=== PATIENT | female | born 1970 | race Caucasian/White ===

== ENCOUNTER → 2020-05-13 12:55 | Outpatient (BNVA) | payer OTHER, SELFPAY | PROVIDERS: Family Provider Family Medicine; PCP Family Medicine; Visit Provider Family Medicine | DX: R07.89 Other chest pain (principal); I10 Essential (primary) hypertension; Z86.39 Personal history of other endocrine, nutritional and metabolic disease; Z68.29 Body mass index [BMI] 29.0-29.9, adult; Z71.89 Other specified counseling | CPT/HCPCS: 80053; 80061; 84484; 85025 ==

== ENCOUNTER 2021-03-23 08:14 | Outpatient (CLI) | payer OTHER, SELFPAY ==
[2021-03-23] MEDS: iohexol 300 mg/mL 100 mL Btl IV (09:29)
--- NOTE | 2021-03-23 09:30 | CT_ITS ---
WS: [id number] CT ABDOMEN PELVIS TECHNIQUE: Contrast-enhanced CT of the abdomen and pelvis with coronal and sagittal reformatted image s. CLINICAL INFORMATION: left lower quadrant pain 3 weeks COMPARISON: None. DLP: 1093.[address] scans at [facility] use at least one of these dose optimization techniques: automat ed exposure control; mA and/or kV adjustment per patient size (includes targeted exams where dose is matched to clinical indication); or iterative reconstruction. FINDINGS:Sigmoid diverticulosis with inflammatory stranding and edema in the pelvis and left lower qu adrant consistent with acute diverticulitis. Tortuous sigmoid colon. Normal decompressed retrocecal a ppendix. Peripheral enhancing fluid collection in the pelvis measuring 4.0 x 4.8 x 2.5 CM. Recommend follow-up to resolution.Reactive edema involving the terminal ileum and ileal bowel loops in the pelv is. Small area of mesenteric tethering in the central lower pelvis adjacent to the sigmoid colon axial im aging 66. A few tiny areas of peritoneal nodularity in the right midabdomen a few of which are calcif ied. This is nonspecific but can be seen with early peritoneal carcinomatosis. Recommend short interv al follow-up after diverticulitis treatment. Prior hysterectomy with reported single residual ovary. Diffuse fatty infiltration liver. Normal portal vein and splenic vein. Normal spleen. Normal pancreas . Adrenal glands are normal. Normal renal parenchymal enhancement. No hydronephrosis. Lung bases are well aerated. Normal caliber abdominal aorta. CT/CT abdomen pelvis w con* [id number] IMPRESSION: 1. Diffuse thickening with inflammatory stranding involving the sigmoid colon in the pelvis and left lower quadrant consistent with acute diverticulitis. Rec ommend follow-up to resolution. 2. Peripheral enhancing fluid collection in the pelvis adjacent to the sigmoid colon measuring 4.0 x 4.8 x 2.5 CM may represent benign reactive fluid versus contained perforation. Recommend short interval follow-up after treatment. No f ree air. 3. A few tiny nodular densities in the right anterior abdominal peritoneum a f ew of which are calcified. This is nonspecific but can be seen with early perit chester carcinomatosis. Additional area of mesenteric tethering in the low pelvis . Recommend short interval follow-up after diverticulitis treatment for further assessment. 4. Appendix is retrocecal and decompressed. 5. Prior hysterectomy. 6. Reactive edema involving the terminal ileum and low-lying ileal bowel loops in the pelvis. 7. Diffuse fatty infiltration of the liver Notified Jorden Casey MD at 03/23/2021 10:40 AM.
== END 2021-03-23 08:15 | disposition home or self-care (01) ==
PROVIDERS: PCP Family Medicine; Visit Provider Family Medicine
DX: R10.32 Left lower quadrant pain (principal); K57.92 Diverticulitis of intestine, part unspecified, without perforation or abscess without bleeding; R59.0 Localized enlarged lymph nodes; K76.0 Fatty (change of) liver, not elsewhere classified; R60.0 Localized edema; Z90.710 Acquired absence of both cervix and uterus
CPT/HCPCS: 74177; 80053; 82378; 85025; 85651; 86304; Q9967

== ENCOUNTER 2021-04-08 20:23 | Emergency (ER) | payer OTHER, SELFPAY ==
[2021-04-08 21:00] VITALS: BP 135/84; PULSE 95; RESP 18; TEMP 36.8; O2SAT 98; BMI 30.3
[2021-04-08 22:16] VITALS: BP 145/93; PULSE 80; RESP 16; O2SAT 98
--- NOTE | 2021-04-08 22:25 | ECG_ITS ---
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 Measurements Intervals [place] Rate: 80 P: 63 MO: 170 QRS: -24 QRSD: 96 T: 43 QT: 384 QTc: 444 Interpretive Statements SINUS RHYTHM BORDERLINE LEFT AXIS DEVIATION [QRS AXIS < -20] LOW QRS VOLTAGE IN PRECORDIAL LEADS [QRS DEFLECTION < 1.0 mV IN CHEST LEADS] No previous ECG available for comparison Electronically Signed On 04-10-2021 17:15:49 CDT by Elver Navarro M.D. [id number]
--- NOTE | 2021-04-08 22:25 | CTR_ITS ---
PROCEDURE INFORMATION: Exam: CTA Chest With Contrast Exam date and time: 04/08/2021 10:25 PM Age: 50 years old Clinical indication: Abdominal pain; Localized; Chest wall pain; Prior surgery; Surgery type: Hysterectomy. Oophorectomy. ; Patient HX: RT side chest and lower abd pain. Recently treated for diverticulitis. Iv leak midway through injection. Extended delay on abd/pel scan. ; Additional info: Cp TECHNIQUE: Imaging protocol: Computed tomographic angiography of the chest with contrast. 3D rendering (Not supervised by radiologist): MIP and/or 3D reconstructed images were created by the technologist. Radiation optimization: All CT scans at this facility use at least one of these dose optimization techniques: automated exposure control; mA and/or kV adjustment per patient size (includes targeted exams where dose is matched to clinical indication); or iterative reconstruction. Contrast material: OMNI 350; Contrast volume: 95 ml; Contrast route: INTRAVENOUS (IV); COMPARISON: CT abdomen pelvis w con* [id number] 03/23/2021 9:25 AM RADIATION DOSE METRICS: Total DLP (mGy-cm): 2125.5 FINDINGS: Pulmonary arteries: Normal. No pulmonary emboli. Aorta: Unremarkable. No aortic aneurysm. No aortic dissection. Lungs: Unremarkable. No consolidation. No masses. Pleural spaces: Unremarkable. No pneumothorax. No pleural effusion. Heart: Unremarkable. No cardiomegaly. No pericardial effusion. Lymph nodes: A partially calcified 13 x 23 mm nodularity is seen in the anterior mediastinum most probably representing a partially calcified lymph node. Bones/joints: Unremarkable. No acute fracture. Soft tissues: Unremarkable. IMPRESSION: 1. There is no evidence for pulmonary emboli. 2. There are no acute chest findings. 3. Probable partially calcified lymph node in the anterior mediastinum. PROCEDURE INFORMATION: Exam: CT Abdomen And Pelvis With Contrast Exam date and time: 04/08/2021 10:25 PM Age: 50 years old Clinical indication: Abdominal pain; Localized; Chest wall pain; Prior surgery; Surgery type: Hysterectomy. Oophorectomy. ; Patient HX: RT side chest and lower abd pain. Recently treated for diverticulitis. Iv leak midway through injection. Extended delay on abd/pel scan. ; Additional info: Cp TECHNIQUE: Imaging protocol: Computed tomography of the abdomen and pelvis with contrast. Radiation optimization: All CT scans at this facility use at least one of these dose optimization techniques: automated exposure control; mA and/or kV adjustment per patient size (includes targeted exams where dose is matched to clinical indication); or iterative reconstruction. Contrast material: OMNI 350; Contrast volume: 95 ml; Contrast route: INTRAVENOUS (IV); COMPARISON: CT abdomen pelvis w con* [id number] 03/23/2021 9:25 AM RADIATION DOSE METRICS: Total DLP (mGy-cm): 2125.5 FINDINGS: Liver: Strandy opacities are seen in the fat and fascia adjacent to the caudal tip of the liver and hepatic flexure of the colon possibly representing chronic scarring. Active inflammatory changes cannot be entirely excluded. Gallbladder and bile ducts: The gallbladder appears contracted. Pancreas: Normal. No ductal dilation. Spleen: Normal. No splenomegaly. Adrenal glands: Normal. No mass. Kidneys and ureters: Normal. No hydronephrosis. Stomach and bowel: There are strandy opacities seen within the mesentery adjacent small bowel loops within the pelvis likely representing some scarring. This appears similar to present on 03/23/2021. Appendix: The appendix is visualized and is normal in configuration. Intraperitoneal space: Numerous nodularities are seen within the omentum within the right flank, several appear calcified findings that may represent prior granulomatous exposure. This finding appears stable compared with 03/23/2021. The abnormal fluid collection seen in the pelvis on 03/23/2021 has resolved. Vasculature: Unremarkable. No abdominal aortic aneurysm. Lymph nodes: Unremarkable. No enlarged lymph nodes. Urinary bladder: Unremarkable as visualized. Reproductive: Status post hysterectomy. Bones/joints: Unremarkable. No acute fracture. Soft tissues: Unremarkable. CT/CT angio chest w abd pel w con IMPRESSION: 1. There are numerous stable nodularity seen within the omentum within the right anterior flank, some containing calcifications, findings that could represent prior granulomatous exposure. This finding appears stable compared with 03/23/2021. 2. Strandy opacities are seen in the mesenteric folds within the pelvis possibly representing some chronic scarring. This finding appears stable compared with 03/23/2021 as well. 3. The abnormal fluid collection within the pelvis seen on 03/23/2021 has resolved. 4. Some strandy opacities are seen in the fat and fascia adjacent to the caudal tip of the liver and hepatic flexure of the colon possibly representing chronic scarring. Active inflammatory changes cannot be entirely excluded. Radiation Dose CTDIVOL = (mGy): DLP = 2125.5~2125.5 (mGy-cm)
--- NOTE | 2021-04-08 22:28 | ED_ITS ---
HPI - Abdominal Pain General: Chief Complaint: Abdominal Pain Stated Complaint: Pain on RT Side Time Seen by Provider: 04/08/21 22:14 Source: patient Mode of arrival: ambulatory Limitations: no limitations History of Present Illness: HPI narrative: 50-year-old female who states that she has been having abdominal pain over the last day. States she recently finished a course of antibiotics for diverticulitis. States her lower abdomen has been no improvement she been having this right flank and side pain and also some right-sided chest pain. States it is worse with movements and deep breaths. Denies any fever denies any cough. States that her pain currently is a 5 out of 10 Associated Symptoms: Denies chills, dysuria and fever(s) Review of Systems Const: Denies: fever(s), chills, body aches or change in appetite Eyes: Denies: blurry vision or eye discomfort ENMT: Denies: throat pain or dental pain Card: Reports: chest pain Resp: Denies: dyspnea GI: Reports: abdominal pain : Denies: dysuria Musc: Denies: neck pain or back pain Skin/Breast: Denies: rash Neuro: Denies: headache(s) Psych: Denies: depression Zac/Lymph: Denies: easy bruising All/Imm: Denies: urticaria PFSH ED PFSH: Surgical History (Updated 03/25/21 @ 08:47 by Sukhdev Tyler MD) History of delivery (1) History of total hysterectomy 2005-LAP S/P right oophorectomy Family History (Updated 03/25/21 @ 08:03 by Olive Verdugo) Other CAD (coronary artery disease) Diabetes Stroke Denies family history of Dementia Chronic kidney disease (CKD) Lung disease Cancer Hypertension Social History Smoking and tobacco status: never smoked Alcohol intake: never Physical Exam Const: COMMON NORMALS: no acute distress, patient oriented x3 and healthy appearing HENMT: COMMON NORMALS: normocephalic and atraumatic HEAD & SCALP: normocephalic and atraumatic Eye: COMMON NORMALS: Equal, round and reactive pupils present and EOMs intact bilaterally PUPIL: Yes Equal, round and reactive pupils present Neck/C-Spine: COMMON NORMALS: full ROM and supple Chest: COMMONS NORMALS: normal inspection of the chest and normal palpation of entire chest wall Resp: COMMON NORMALS: normal respiratory effort, No retractions, No use of accessory muscles and clear to auscultation bilaterally AUSCULTATION: clear to auscultation bilaterally Cardio: COMMON NORMALS: regular rate, regular rhythm and No murmurs present (Cardio) RATE: regular rate RHYTHM: regular rhythm GI: COMMON NORMALS: Normal to inspection, nondistended, normoactive bowel sounds present, Soft to palpation, non-tender and no masses PALPATION: Yes Soft to palpation OTHER: right side tenderness Extremity: COMMON NORMALS: normal to inspection and full ROM Neuro: COMMON NORMALS: patient oriented x3, moves all extremities and no focal motor deficits Psych: COMMON NORMALS: mental status grossly normal, Normal thought process present and cooperative THOUGHT PROCESS: Normal thought process present Skin: COMMON NORMALS: no rashes or lesions noted and no wounds GENERAL SKIN EXAM: no rashes or lesions noted Course Vital Signs: Vital signs: Vital Signs Temperature 98.2 F 04/08/21 21:00 Pulse Rate 80 04/08/21 22:16 Respiratory Rate 18 04/08/21 23:06 Blood Pressure 145/93 04/08/21 22:16 Pulse Oximetry 97 04/08/21 23:06 MDM - Abdominal Pain MDM Narrative: Medical decision making narrative: Patient presents here with right-sided abdominal chest pain is likely muscular pleuritic in nature. Her CT scan here showed no acute finding. Blood work is all normal as well. She has no signs of cardiac cause for her pain. She is stable for discharge is to follow-up with her surgeon and return if worsening. Lab Data: Labs: Lab Results 04/08/21 04/08/21 04/08/21 Range/Units 22:33 22:33 22:33 WBC 7.6 (4.0-10.0) 10^3/ uL RBC 4.90 (4.1-5.3) 10^6/u L Hgb 14.8 (11.5-15.3) g/dL Hct 44.3 (37.0-47.0) % MCV 90.4 (81-99) fL MCH 30.2 (28.0-34.0) pg MCHC 33.4 (30.0-36.0) g/dL RDW 12.3 (12.1-15.1) % Plt Count 260 (130-400) 10^3/c mm MPV 9.1 (7.4-10.4) fL Neut % (Auto) 48.8 % Lymph % (Auto) 38.0 % Bowman % (Auto) 11.3 % Eos % (Auto) 0.9 % Baso % (Auto) 0.7 % Neut # (Auto) 3.74 (1.8-7.7) 10^3/u L Lymph # (Auto) 2.9 (0.8-4.8) 10^3/u L Bowman # (Auto) 0.9 (0.2-0.9) 10^3/u L Eos # (Auto) 0.1 (0.0-0.8) 10^3/u L Baso # (Auto) 0.1 (0.0-0.1) 10^3/u L Nucleated RBC % (a uto) 0 % Nucleated RBCs # 0.0 /100WBC Sodium 138 (136-145) mmol/L Potassium 4.1 (3.5-5.1) mmol/L Chloride 102 (98-107) mmol/L Carbon Dioxide 27 (22-29) mmol/L Anion Gap 13.1 (5-19) BUN 6 (6-20) mg/dL Creatinine 0.6 (0.5-0.9) mg/dL GFR Calculation 106.3 (90-130) mL/min Glucose 95 (65-115) mg/dL Calculated Osmolal ity 283 L (285-295) mOsm/k g Calcium 9.5 (8.5-10.5) mg/dL Total Bilirubin 0.2 (0.15-1.2) mg/dL AST 21 (0-32) U/L ALT 23 (0-33) U/L Alkaline Phosphata se 96 (35-105) IU/L Total Protein 6.7 (6.6-8.7) g/dL Albumin 4.2 (3.5-5.2) g/dL Globulin 2.5 (1.3-4.6) g/dL Lipase 33 (13-60) U/L Urine Color Yellow (Yellow) Urine Appearance Clear (CLEAR) Urine pH 8 H (5-7) Ur Specific Gravit y 1.010 (1.005-1.030) Urine Protein Neg (Negative) Urine Glucose (UA) Norm (Normal) Urine Ketones Negative (Negative) Urine Blood Neg (Negative) Urine Nitrate Negative (Negative) Urine Bilirubin Neg (Negative) Prot Sulfosalicyli c Acd Negative (Negative) Urine Urobilinogen Norm (Negative) mg/dL Ur Leukocyte Karen ase Negative (Negative) Imaging Data ^: CT Chest: Attestation: I personally reviewed and interpreted this imaging study as follows: Radiologist's impression: [employer] [address] [address] Scan Report Signed Patient: Radha Boles Unit #: [id number] : 1970 Acc t#:[id number] Age/Sex: 50 / F ADM Date: 04/08/21 Loc: ER Room/Bed: Attending Dr: Ordering Provider/Ordering MD: Casie Mccarty MD Date of Service: 04/08/21 Procedure(s): CT angio chest w abd pel w con Accession Number(s): [id number] Report Number: [id number] PROCEDURE INFORMATION: Exam: CTA Chest With Contrast Exam date and time: 04/08/2021 10:25 PM Age: 50 years old Clinical indication: Abdominal pain; Localized; Chest wall pain; Prior surgery; Surgery type: Hysterectomy. Oophorectomy. ; Patient HX: RT side chest and lower abd pain. Recently treated for diverticulitis. Iv leak midway through injection. Extended delay on abd/pel scan. ; Additional info: Cp TECHNIQUE: Imaging protocol: Computed tomographic angiography of the chest with contrast. 3D rendering (Not supervised by radiologist): MIP and/or 3D reconstructed images were created by the technologist. Radiation optimization: All CT scans at this facility use at least one of these dose optimization techniques: automated exposure control; mA and/or kV adjustment per patient size (includes targeted exams where dose is matched to clinical indication); or iterative reconstruction. Contrast material: OMNI 350; Contrast volume: 95 ml; Contrast route: INTRAVENOUS (IV); COMPARISON: CT abdomen pelvis w con* [id number] 03/23/2021 9:25 AM RADIATION DOSE METRICS: Total DLP (mGy-cm): 2125.5 FINDINGS: Pulmonary arteries: Normal. No pulmonary emboli. Aorta: Unremarkable. No aortic aneurysm. No aortic dissection. Lungs: Unremarkable. No consolidation. No masses. Pleural spaces: Unremarkable. No pneumothorax. No pleural effusion. Heart: Unremarkable. No cardiomegaly. No pericardial effusion. Lymph nodes: A partially calcified 13 x 23 mm nodularity is seen in the anterior mediastinum most probably representing a partially calcified lymph node. Bones/joints: Unremarkable. No acute fracture. Soft tissues: Unremarkable. IMPRESSION: 1. There is no evidence for pulmonary emboli. 2. There are no acute chest findings. 3. Probable partially calcified lymph node in the anterior mediastinum. PROCEDURE INFORMATION: Exam: CT Abdomen And Pelvis With Contrast Exam date and time: 04/08/2021 10:25 PM Age: 50 years old Clinical indication: Abdominal pain; Localized; Chest wall pain; Prior surgery; Surgery type: Hysterectomy. Oophorectomy. ; Patient HX: RT side chest and lower abd pain. Recently treated for diverticulitis. Iv leak midway through injection. Extended delay on abd/pel scan. ; Additional info: Cp TECHNIQUE: Imaging protocol: Computed tomography of the abdomen and pelvis with contrast. Radiation optimization: All CT scans at this facility use at least one of these dose optimization techniques: automated exposure control; mA and/or kV adjustment per patient size (includes targeted exams where dose is matched to clinical indication); or iterative reconstruction. Contrast material: OMNI 350; Contrast volume: 95 ml; Contrast route: INTRAVENOUS (IV); COMPARISON: CT abdomen pelvis w con* [id number] 03/23/2021 9:25 AM RADIATION DOSE METRICS: Total DLP (mGy-cm): 2125.5 FINDINGS: Liver: Strandy opacities are seen in the fat and fascia adjacent to the caudal tip of the liver and hepatic flexure of the colon possibly representing chronic scarring. Active inflammatory changes cannot be entirely excluded. Gallbladder and bile ducts: The gallbladder appears contracted. Pancreas: Normal. No ductal dilation. Spleen: Normal. No splenomegaly. Adrenal glands: Normal. No mass. Kidneys and ureters: Normal. No hydronephrosis. Stomach and bowel: There are strandy opacities seen within the mesentery adjacent small bowel loops within the pelvis likely representing some scarring. This appears similar to present on 03/23/2021. Appendix: The appendix is visualized and is normal in configuration. Intraperitoneal space: Numerous nodularities are seen within the omentum within the right flank, several appear calcified findings that may represent prior granulomatous exposure. This finding appears stable compared with 03/23/2021. The abnormal fluid collection seen in the pelvis on 03/23/2021 has resolved. Vasculature: Unremarkable. No abdominal aortic aneurysm. Lymph nodes: Unremarkable. No enlarged lymph nodes. Urinary bladder: Unremarkable as visualized. Reproductive: Status post hysterectomy. Bones/joints: Unremarkable. No acute fracture. Soft tissues: Unremarkable. CT/CT angio chest w abd pel w con IMPRESSION: 1. There are numerous stable nodularity seen within the omentum within the right anterior flank, some containing calcifications, findings that could represent prior granulomatous exposure. This finding appears stable compared with 03/23/2021. 2. Strandy opacities are seen in the mesenteric folds within the pelvis possibly representing some chronic scarring. This finding appears stable compared with 03/23/2021 as well. 3. The abnormal fluid collection within the pelvis seen on 03/23/2021 has resolved. 4. Some strandy opacities are seen in the fat and fascia adjacent to the caudal tip of the liver and hepatic flexure of the colon possibly representing chronic scarring. Active inflammatory changes cannot be entirely excluded. Radiation Dose CTDIVOL = (mGy): DLP = 2125.5 2125.5 (mGy-cm) Dictated By: Yoni Boston MD Signed By: Yoni Boston MD Signed Date/Time: 04/08/21 [id number] EKG Data ^: EKG 1: Attestation: I personally reviewed and interpreted this EKG as follows: EKG interpretation date: 04/08/21 EKG interpretation time: 22:58 Interpretation: nsr hr [address] or t wave abnormalities qrs 96 qtc 420 Discharge Plan Discharge Patient Disposition: Home Clinical Impression: Abdominal pain Qualifiers: Abdominal location: generalized Qualified Code(s): R10.84 - Generalized abdominal pain Chest pain Qualifiers: Chest pain type: unspecified Qualified Code(s): R07.9 - Chest pain, unspecified Condition: Stable Prescriptions: New Naprosyn 500 mg tablet 500 mg PO BID PRN (Reason: pain) Qty: 20 RF: 0 No Action nitroglycerin 0.4 mg tablet, sublingual 0.4 mg SUBLINGUAL Q5M PRN (Reason: chest pain) Qty: 25 RF: 1 ciprofloxacin HCl [Cipro] 250 mg tablet 500 mg PO BID 14 Days Qty: 56 RF: 0 sennosides-docusate sodium [Senna-S] 8.6-50 mg tablet 1 tab-cap PO DAILY 30 Days Qty: 30 RF: 0 metronidazole [Flagyl] 500 mg tablet 500 mg PO TID 14 Days Qty: 42 RF: 0 estradiol [Estrace] 1 mg tablet 1 mg PO DAILY 21 Days Qty: 90 RF: 1 amitriptyline 10 mg tablet See Rx Instructions .ROUTE .COMPLEX Qty: 90 RF: 0 Discharge Orders: Discharge ED (Routine); Ordered 04/08/21 Ordered By: Casie Mccarty Referrals: Jorden Casey MD [Primary Care Provider] - 1-3 days Discharge Diet: Advance as tolerated Discharge Activity: Resume usual activity Patient Instructions: Abdominal Pain (ED), Opioid Safety Coding Level of Care Code ED Signal Worker Helper for Chg Fwd Exam Comprehensive
[2021-04-08 22:40] LABS: Add Urine Microscopic? NO; Charge for UA Resulting for Rev
[2021-04-08] MEDS: iohexol 350 mg/mL 100 mL Btl IV (22:40)
[2021-04-08 22:41] LABS: Basophils # 0.1 10^3/uL (0.0-0.1); Basophils % 0.7 %; Eosinophils # 0.1 10^3/uL (0.0-0.8); Eosinophils % 0.9 %; Hematocrit 44.3 % (37.0-47.0); Hemoglobin 14.8 g/dL (11.5-15.3); Lymphocytes # 2.9 10^3/uL (0.8-4.8); Mean Corpuscular HGB Conc 33.4 g/dL (30.0-36.0); Mean Corpuscular Hemoglobin 30.2 pg (28.0-34.0); Mean Corpuscular Volume 90.4 fL (81-99); Mean Platelet Volume 9.1 fL (7.4-10.4); Monocytes # 0.9 10^3/uL (0.2-0.9); Monocytes % 11.3 %; Neutrophils # 3.74 10^3/uL (1.8-7.7); Neutrophils % 48.8 %; Nucleated Red Blood Cells % 0 %; Platelet Count 260 10^3/cmm (130-400); Red Cell Distribution Width 12.3 % (12.1-15.1); White Blood Count 7.6 10^3/uL (4.0-10.0)
[2021-04-08 22:47] LABS: Bilirubin Urine Neg (Negative); Blood Urine Neg (Negative); Glucose Urine UA Norm (Normal); Ketones Urine Negative (Negative); Leukocyte Esterase Urine Negative (Negative); Nitrate Urine Negative (Negative); Protein Urine Neg (Negative); Sulfosalicylic Acid Urine Negative (Negative); Urine Appearance Clear (CLEAR); Urine Color Yellow (Yellow); Urobilinogen Urine Norm (Negative); pH Urine 8 (5-7)
[2021-04-08 22:57] LABS: Alanine Aminotransferase 23 U/L (0-33); Albumin Level 4.2 g/dL (3.5-5.2); Alkaline Phosphatase 96 IU/L (35-105); Anion Gap 13.1 (5-19); Aspartate Amino Transferase 21 U/L (0-32); Blood Urea Nitrogen 6 mg/dL (6-20); Calcium 9.5 mg/dL (8.5-10.5); Carbon Dioxide 27 mmol/L (22-29); Chloride 102 mmol/L (98-107); Globulin 2.5 g/dL (1.3-4.6); Glomerular Filtration Rate 106.3 mL/min (90-130); Glucose 95 mg/dL (65-115); Lipase 33 U/L (13-60); Osmolality Calculated 283 mOsm/kg (285-295); Potassium 4.1 mmol/L (3.5-5.1); Sodium 138 mmol/L (136-145); Total Bilirubin 0.2 mg/dL (0.15-1.2); Total Protein 6.7 g/dL (6.6-8.7)
[2021-04-08 23:06] VITALS: RESP 18; O2SAT 97
[2021-04-08] MEDS: morphine 4 mg/mL SDV 1 mL IVP (23:06)
[2021-04-08] MEDS: sodium chloride 0.9% 1,000 ML 999 ML IV (23:06)
[2021-04-08] MEDS: ondansetron 2 mg/ML SDV 2 mL 4 MG IVP (23:06)
[2021-04-09 00:10] VITALS: BP 121/90; PULSE 78; RESP 18; TEMP 36.8; O2SAT 98
== END 2021-04-09 00:10 | disposition home or self-care (01) ==
PROVIDERS: Emergency Provider Emergency Medicine; PCP Family Medicine
DX: R10.84 Generalized abdominal pain (principal); R07.9 Chest pain, unspecified
CPT/HCPCS: 71275; 74177; 80053; 81003; 83690; 85025; 93005; 96361; 96374; 99284; J2270; J2405; J7030; Q9967

== ENCOUNTER 2021-04-14 09:06 | Outpatient (CLI) | payer OTHER, SELFPAY ==
--- NOTE | 2021-04-14 09:12 | US_ITS ---
WS: [id number] ULTRASOUND PELVIS TECHNIQUE: Transabdominal. CLINICAL INFORMATION: R97.1 - Elevated cancer antigen 125 [CA 125] : No. COMPARISON: None. FINDINGS: Prior hysterectomy Adnexa: No adnexal masses. Neither ovary is visualized. Urine distended bladder. Free fluid: None. Other findings: None. US/US pelvic complete* [id number] IMPRESSION: 1. Prior hysterectomy. 2. No adnexal masses. 3. Neither ovary is visualized. 4. No free fluid in the cul-de-sac. 5. Normal-appearing bladder.
== END 2021-04-14 09:07 | disposition home or self-care (01) ==
LOC: RAD 09:08
PROVIDERS: PCP Family Medicine; Visit Provider Surgery
DX: K57.92 Diverticulitis of intestine, part unspecified, without perforation or abscess without bleeding (principal); R97.1 Elevated cancer antigen 125 [CA 125]; Z90.710 Acquired absence of both cervix and uterus
CPT/HCPCS: 76856

== ENCOUNTER → 2021-05-02 08:13 | Outpatient (BNVA) | payer OTHER, SELFPAY | PROVIDERS: PCP Family Medicine; Visit Provider Surgery | DX: Z20.822 Contact with and (suspected) exposure to COVID-19 (principal); Z11.52 Encounter for screening for COVID-19 | CPT/HCPCS: 87635 ==

== ENCOUNTER 2021-05-05 11:52 | Day surgery (SDC) | payer OTHER, SELFPAY ==
[2021-05-03 12:56] VITALS: BMI 27.4
--- NOTE | 2021-05-05 12:34 | ANES.PREANE2 ---
Pre-Anesthetic Assessment Pre-Anesthetic Assessment: Height/Weight: Height 1.57 m Weight 68.039 kg Preop Diagnosis: diverticulitis hx Proposed Procedure: Operation Date: 05/05/21 10:30 Proposed Procedures p Colonoscopy 76753 k57.92(Not Applicable) - Sukhdev Tyler MD Familial anesthetic complications: ponv Was Beta Edith taken within 24 hours: N/A Was Clonidine taken within 24 hours: N/A Last intake: > 8 hrs Social: Social History: No alcohol and No tobacco Exam: Pre-Anes Outpt Exam: alert, oriented x 3, clear to auscultation bilaterally and regular rate & rhythm Airway: Cervical ROM: WNL MP: 2 Dentition: Full CV/HEM: CV/HEM: HTN (states no longer has blood pressure issues) Anesthetic Plan: ASA status: 2 Anesthesia: MAC Risk of > 500 ml blood loss (7ml/kg in children): No PFSH Anesthesia PFSH: Surgical History (Updated 03/25/21 @ 08:47 by Sukhdev Tyler MD) History of delivery (1) History of total hysterectomy 2004-LAP S/P right oophorectomy Family History (Updated 03/25/21 @ 08:03 by Olive Verdugo) Other CAD (coronary artery disease) Diabetes Stroke Denies family history of Dementia Chronic kidney disease (CKD) Lung disease Cancer Hypertension Social History Smoking and tobacco status: never smoked Alcohol intake: never Data Anesthesia Cardiac Studies: No Data to Display
[2021-05-05 12:59] VITALS: BP 116/78; PULSE 80; RESP 16; TEMP 36.6; O2SAT 98
[2021-05-05] MEDS: sodium chloride 0.9% 1,000 ML 30 ML IV (13:06)
--- NOTE | 2021-05-05 13:47 | P.HP_ITS ---
Same Day Surgery H&P Indication for Procedure/HPI DATE OF PROCEDURE: May 05, 2021 CHIEF COMPLAINT/INDICATIONFOR SURGICAL PROCEDURE: diverticulitis PREOP DIAGNOSIS: diverticulitis hx PLANNED PROCEDRUE: Operation Date: 05/05/21 10:30 Proposed Procedures p Colonoscopy 53353 k57.92(Not Applicable) - Sukhdev Tyler MD Medications/Allergies* Home Medications Medication Instructions Recorded Confirmed Type amitriptyline 10 mg PO DAILY 05/03/21 05/05/21 History Allergies/Adverse Reactions Allergy/AdvReac Type Severity Reaction Status Date / Time lisinopril AdvReac cough Verified 03/25/21 07:52 Current Medications: Generic Name Dose Route Start Last Admin Trade Name Freq PRN Reason Stop Dose Admin Sodium Chloride 1,000 mls @ 30 mls/hr 05/05/21 12:45 05/05/21 13:06 Sodium Chloride 0.9% IV 05/06/21 12:44 30 mls/hr .Q24H BRIAN Administration Pertinent History/Comorbid Conditions* Surgical History (Updated 03/25/21 @ 08:47 by Sukhdev Tyler MD) History of delivery (1) History of total hysterectomy 2005-LAP S/P right oophorectomy Family History (Updated 03/25/21 @ 08:03 by Olive Verdugo) Diabetes CAD (coronary artery disease) Stroke Denies family history of Dementia Chronic kidney disease (CKD) Lung disease Cancer Hypertension Social History Smoking and tobacco status: never smoked Alcohol intake: never Pertinent Exam Findings alert, oriented x 3 and regular rate & rhythm Recommendations Surgery/Procedure today Coding Level of Care Code Acute Director Paid Media for Terri Bradford
[2021-05-05 15:06] VITALS: BP 94/70; PULSE 84; RESP 18; TEMP 36.8; O2SAT 96
[2021-05-05 15:26] VITALS: BP 94/90; PULSE 84; RESP 18; TEMP 36.8; O2SAT 96
[2021-05-05 15:52] VITALS: BP 115/71; PULSE 76; RESP 18; O2SAT 96
--- NOTE | 2021-05-05 17:00 | ANE.PACU2 ---
Inpatient post-anesthesia follow up: Airway intact: Yes Vital signs: Temperature 98.3 F Pulse Rate 76 Respiratory Rate 18 Blood Pressure 115/71 Pulse Oximetry 96 Oxygen Delivery Me thod Room Air Oxygen Flow Rate Fraction of Inspir ed Oxygen Hydration adequate: Yes Nausea and vomiting: No Mental status: Baseline
== END 2021-05-05 16:12 | disposition home or self-care (01) ==
PROVIDERS: PCP Family Medicine; Visit Provider Surgery
PROC: 0DJD8ZZ Inspection of Lower Intestinal Tract, Via Natural or Artificial Opening Endoscopic (ICD-10-PCS; CPT 45378; principal; 2021-05-05 10:30)
DX: K57.92 Diverticulitis of intestine, part unspecified, without perforation or abscess without bleeding (principal); K57.30 Diverticulosis of large intestine without perforation or abscess without bleeding; Z82.49 Family history of ischemic heart disease and other diseases of the circulatory system; Z83.3 Family history of diabetes mellitus; I10 Essential (primary) hypertension
CPT/HCPCS: 45378; 86304; 96360; 96361; J2704; J7030

== ENCOUNTER 2021-05-08 13:50 | Inpatient (IN) | payer OTHER, SELFPAY ==
[2021-05-08] VITALS (13 sets, daily range): BP systolic 119–135; BP diastolic 79–104; PULSE 72–103; RESP 17–20; TEMP 36.4–36.7; O2SAT 96–100; BMI 29.2
--- NOTE | 2021-05-08 14:14 | CTR_ITS ---
PROCEDURE INFORMATION: Exam: CT Abdomen And Pelvis With Contrast Exam date and time: 05/08/2021 2:14 PM Age: 50 years old Clinical indication: Abdominal pain; Prior surgery; Surgery type: Scope 05/05 hysto; Additional info: Severe abdominal pain, n/v, post colonoscopy TECHNIQUE: Imaging protocol: Computed tomography of the abdomen and pelvis with contrast. Radiation optimization: All CT scans at this facility use at least one of these dose optimization techniques: automated exposure control; mA and/or kV adjustment per patient size (includes targeted exams where dose is matched to clinical indication); or iterative reconstruction. Contrast material: OMNI 300; Contrast volume: 95 ml; Contrast route: INTRAVENOUS (IV); COMPARISON: CT abdomen pelvis w con* [id number] 03/23/2021 9:25 AM RADIATION DOSE METRICS: Total DLP (mGy-cm): 1382.85 FINDINGS: Liver: Normal. No mass. Gallbladder and bile ducts: Normal. No calcified stones. No ductal dilation. Pancreas: Normal. No ductal dilation. Spleen: Normal. No splenomegaly. Adrenal glands: Normal. No mass. Kidneys and ureters: Normal. No hydronephrosis. Stomach and bowel: There is a small bowel obstruction with transition point in the right hemipelvis within a distal ileal loop. Corresponding neared diffuse dilation of the small bowel loops particularly in the mid and lower abdomen measuring up to 3 cm in transverse dimension. The terminal ileum and colon are decompressed beyond the area of transition. Appendix: No evidence of appendicitis. Intraperitoneal space: Trace free fluid in the abdomen and pelvis. Vasculature: Unremarkable. No abdominal aortic aneurysm. Lymph nodes: Unremarkable. No enlarged lymph nodes. Urinary bladder: Unremarkable as visualized. Reproductive: Hysterectomy changes. Bones/joints: No acute fracture. Soft tissues: Unremarkable. CT/CT abdomen pelvis w con* [id number] IMPRESSION: Small-bowel obstruction with transition point in the right hemipelvis within a distal ileal loop. Findings were discussed with Talha Nelson at 05/08/2021 3:40 PM CDT. Radiation Dose CTDIVOL = (mGy): DLP = 1382.85 (mGy-cm)
--- NOTE | 2021-05-08 14:23 | ED_ITS ---
HPI - Abdominal Pain General: Chief Complaint: Abdominal Pain Stated Complaint: ABD N/V Time Seen by Provider: 05/08/21 14:08 History of Present Illness: HPI narrative: Ms. Boles is a 50-year-old lady with a significant past medical history of diverticulitis and abdominal pain who presents to the emergency department with a chief complaint of abdominal pain. Symptom onset was approximately 12 hours and described as waking her up from sleep at about 4 PM. The patient reports associated nonbloody emesis x6 and nausea. They rate the intensity of their symptoms as moderate to severe and describe the character as aching/cramping. Overall the course of symptoms has been persistent. The patient has not had similar episodes in the past. There are no other specific exacerbating or alleviating factors reported. Of note the patient reports undergoing colonoscopy on 05/05 for further evaluation of history of diverticulitis however she reports tolerating the procedure well and feeling back to her baseline when she went to bed last night. Review of Systems General: Reports: 10 or more systems reviewed and unremarkable except in HPI and below Narrative: CONSTITUTIONAL: denies fever, fatigue, weakness EYES - denies pain, denies loss of vision EARS - denies ear issues. NOSE - denies congestion or rhinorrhea. THROAT - denies sore throat or difficulty swallowing. CARDIOVASCULAR - denies chest pain and palpitations RESPIRATORY - denies shortness of breath and cough GASTROINTESTINAL -see HPI GENITOURINARY - denies dysuria or urinary frequency MUSCULOSKELETAL- denies deformity or pain SKIN - denies rashes or new changed skin lesions NEUROLOGIC - denies focal weakness or sensory changes HEMATOLOGIC/LYMPHATIC - denies easy bruising or lymphadenopathy. PFS ED PFSH: Surgical History History of delivery (1) History of total hysterectomy 2005-LAP S/P right oophorectomy Status post colonoscopy (05/05/21) Family History Other CAD (coronary artery disease) Diabetes Stroke Denies family history of Dementia Chronic kidney disease (CKD) Lung disease Cancer Hypertension Social History Smoking and tobacco status: never smoked Alcohol intake: never Physical Exam Narrative: EXAM NARRATIVE: GENERAL/CONSTITUTIONAL - distress due to pain. Patient is nontoxic in appearance Eyes - PERRL, no conjunctival injection ENMT - Atraumatic external nose and ears. Moist mucous membranes NECK - supple. trachea midline CARDIOVASCULAR - regular rate and rhythm. Peripheral pulses 2+ and equal RESPIRATORY -clear to auscultation bilaterally. No retractions or accessory muscle use. ABDOMEN/GI - generalized tenderness palpation worse in the upper quadrants bilaterally without. Mild tenderness as expected with percussion though no evidence of peritonitis. No dasha distention. MSK - Extremities without obvious deformity or tenderness to palpation SKIN - Warm, Dry NEURO - alert and appropriately oriented. strength and sensation intact. Moves all extremities equally. PSYCH - Appropriate mood and affect Course ED course: - Patient was seen and evaluated by me at bedside - Patient placed on cardiac monitors, IV access obtained - Initial evaluation notable for somewhat ill appearance, distress due to pain. Abdominal exam with tenderness though patient does not have an acute abdomen at this time. - Labs and imaging obtained and reviewed - Fluids, analgesia given - Labs notable for no leukocytosis, lactate elevated - Imaging notable for small bowel obstruction per radiology read - Upon reevaluation patient had some improvement after fluids and symptom control though still had symptoms and additional therapies were ordered. - General surgery service plant production manager Dr. Cobos was contacted and came to evaluate the patient. NG tube ordered - Upon serial reexamination after treatment the patient was transiently improved with medications - Based on patient history, evaluation, labs, and imaging as interpreted the most likely cause of the patient's condition is small bowel obstruction in add ition after discussion with Dr. Cobos there is likely component of enteritis. Antibiotics ordered. - The results of ED evaluation were discussed with the patient including plan for admission due to requirement for level of care not available if discharged to prevent significant worsening/deterioration. - Patient to be admitted to general surgery service - Patient was admitted without further deterioration or significant events. Vital Signs: Vital signs: Vital Signs Temperature 97.9 F 05/09/21 11:26 Pulse Rate 87 05/09/21 11:26 Respiratory Rate 16 05/09/21 11:38 Blood Pressure 133/87 05/09/21 11:26 Pulse Oximetry 95 05/09/21 11:26 MDM - Abdominal Pain Medical Records: Attestation: I reviewed the patient's medical records. Lab Data: Attestation: I reviewed the patient's lab results. Labs: Lab Results 05/08/21 05/08/21 05/08/21 Range/Units 14:14 14:14 14:14 WBC 9.6 (4.0-10.0) 10^3/ uL RBC 5.43 H (4.1-5.3) 10^6/u L Hgb 16.3 H (11.5-15.3) g/dL Hct 47.6 H (37.0-47.0) % MCV 87.7 (81-99) fL MCH 30.0 (28.0-34.0) pg MCHC 34.2 (30.0-36.0) g/dL RDW 12.5 (12.1-15.1) % Plt Count 291 (130-400) 10^3/c mm MPV 9.0 (7.4-10.4) fL Neut % (Auto) 68.5 % Lymph % (Auto) 22.7 % Irion % (Auto) 7.7 % Eos % (Auto) 0.2 % Baso % (Auto) 0.4 % Neut # (Auto) 6.57 (1.8-7.7) 10^3/u L Lymph # (Auto) 2.2 (0.8-4.8) 10^3/u L Irion # (Auto) 0.7 (0.2-0.9) 10^3/u L Eos # (Auto) 0.0 (0.0-0.8) 10^3/u L Baso # (Auto) 0.0 (0.0-0.1) 10^3/u L Nucleated RBC % (a uto) 0 % Nucleated RBCs # 0.0 /100WBC Sodium 137 (136-145) mmol/L Potassium 4.1 (3.5-5.1) mmol/L Chloride 98 (98-107) mmol/L Carbon Dioxide 23 (22-29) mmol/L Anion Gap 20.1 H (5-19) BUN 8 (6-20) mg/dL Creatinine 0.7 (0.5-0.9) mg/dL GFR Calculation 88.9 L (90-130) mL/min Glucose 123 H (65-115) mg/dL Calculated Osmolal ity 284 L (285-295) mOsm/k g Lactate 2.9 H (0.5-2.2) mmol/L Calcium 10.0 (8.5-10.5) mg/dL Total Bilirubin 0.5 (0.15-1.2) mg/dL AST 23 (0-32) U/L ALT 28 (0-33) U/L Alkaline Phosphata se 123 H (35-105) IU/L Total Protein 7.1 (6.6-8.7) g/dL Albumin 4.8 (3.5-5.2) g/dL Globulin 2.3 (1.3-4.6) g/dL Lipase 26 (13-60) U/L Urine Color (Yellow) Urine Appearance (CLEAR) Urine pH (5-7) Ur Specific Gravit y (1.005-1.030) Urine Protein (Negative) Urine Glucose (UA) (Normal) Urine Ketones (Negative) Urine Blood (Negative) Urine Nitrate (Negative) Urine Bilirubin (Negative) Urine Urobilinogen (Negative) mg/dL Ur Leukocyte Karen ase (Negative) 05/08/21 05/08/21 Range/Units 16:12 16:47 WBC (4.0-10.0) 10^3/ uL RBC (4.1-5.3) 10^6/u L Hgb (11.5-15.3) g/dL Hct (37.0-47.0) % MCV (81-99) fL MCH (28.0-34.0) pg MCHC (30.0-36.0) g/dL RDW (12.1-15.1) % Plt Count (130-400) 10^3/c mm MPV (7.4-10.4) fL Neut % (Auto) % Lymph % (Auto) % Irion % (Auto) % Eos % (Auto) % Baso % (Auto) % Neut # (Auto) (1.8-7.7) 10^3/u L Lymph # (Auto) (0.8-4.8) 10^3/u L Irion # (Auto) (0.2-0.9) 10^3/u L Eos # (Auto) (0.0-0.8) 10^3/u L Baso # (Auto) (0.0-0.1) 10^3/u L Nucleated RBC % (a uto) % Nucleated RBCs # /100WBC Sodium (136-145) mmol/L Potassium (3.5-5.1) mmol/L Chloride (98-107) mmol/L Carbon Dioxide (22-29) mmol/L Anion Gap (5-19) BUN (6-20) mg/dL Creatinine (0.5-0.9) mg/dL GFR Calculation (90-130) mL/min Glucose (65-115) mg/dL Calculated Osmolal ity (285-295) mOsm/k g Lactate 2.6 H (0.5-2.2) mmol/L Calcium (8.5-10.5) mg/dL Total Bilirubin (0.15-1.2) mg/dL AST (0-32) U/L ALT (0-33) U/L Alkaline Phosphata se (35-105) IU/L Total Protein (6.6-8.7) g/dL Albumin (3.5-5.2) g/dL Globulin (1.3-4.6) g/dL Lipase (13-60) U/L Urine Color Yellow (Yellow) Urine Appearance Clear (CLEAR) Urine pH 5 (5-7) Ur Specific Gravit y 1.010 (1.005-1.030) Urine Protein Neg (Negative) Urine Glucose (UA) Norm (Normal) Urine Ketones Negative (Negative) Urine Blood Neg (Negative) Urine Nitrate Negative (Negative) Urine Bilirubin Neg (Negative) Urine Urobilinogen Norm (Negative) mg/dL Ur Leukocyte Karen ase Negative (Negative) Imaging Data ^: CT Abd/Pel: My impression: No obvious free air. Prominent small bowel loops with fluid- filled contents. Radiologist's impression: IMPRESSION: Small-bowel obstruction with transition point in the right hemipelvis within a distal ileal loop. Discharge Plan Discharge Patient Disposition: Admitted As Inpatient Admit Provider: Luis Armando Cobos Condition: Stable Coding Level of Care Code ED Rubber Attacher for Terri Bradford
[2021-05-08 14:25] LABS: Basophils % 0.4 %; Eosinophils % 0.2 %; Hematocrit 47.6 % (37.0-47.0); Hemoglobin 16.3 g/dL (11.5-15.3); Lymphocytes # 2.2 10^3/uL (0.8-4.8); Lymphocytes % 22.7 %; Mean Corpuscular HGB Conc 34.2 g/dL (30.0-36.0); Mean Corpuscular Volume 87.7 fL (81-99); Monocytes # 0.7 10^3/uL (0.2-0.9); Monocytes % 7.7 %; Neutrophils # 6.57 10^3/uL (1.8-7.7); Neutrophils % 68.5 %; Nucleated Red Blood Cells % 0 %; Platelet Count 291 10^3/cmm (130-400); Red Blood Count 5.43 10^6/uL (4.1-5.3); Red Cell Distribution Width 12.5 % (12.1-15.1); White Blood Count 9.6 10^3/uL (4.0-10.0)
[2021-05-08] MEDS: ondansetron 2 mg/ML SDV 2 mL 4 MG IVP ×2 (14:30→21:21)
[2021-05-08] MEDS: fentaNYL 50 mcg/mL INJ 2mL IVP ×3 (14:30→16:57)
[2021-05-08] MEDS: iohexol 300 mg/mL 100 mL Btl IV (14:44)
[2021-05-08 14:53] LABS: Lactate (Lactic Acid level) 2.9 mmol/L (0.5-2.2)
[2021-05-08 14:54] LABS: Alanine Aminotransferase 28 U/L (0-33); Albumin Level 4.8 g/dL (3.5-5.2); Alkaline Phosphatase 123 IU/L (35-105); Anion Gap 20.1 (5-19); Aspartate Amino Transferase 23 U/L (0-32); Blood Urea Nitrogen 8 mg/dL (6-20); Carbon Dioxide 23 mmol/L (22-29); Chloride 98 mmol/L (98-107); Creatinine Clr Calc Pharmacy 90.6867; Globulin 2.3 g/dL (1.3-4.6); Glomerular Filtration Rate 88.9 mL/min (90-130); Glucose 123 mg/dL (65-115); Lipase 26 U/L (13-60); Osmolality Calculated 284 mOsm/kg (285-295); Potassium 4.1 mmol/L (3.5-5.1); Sodium 137 mmol/L (136-145); Total Bilirubin 0.5 mg/dL (0.15-1.2); Total Protein 7.1 g/dL (6.6-8.7)
[2021-05-08] MEDS: sodium chloride 0.9% 1,000 ML 999 ML IV (14:57)
[2021-05-08 16:27] LABS: Add Urine Microscopic? NO; Charge for UA Resulting for Rev
--- NOTE | 2021-05-08 16:28 | XRR_ITS ---
PROCEDURE INFORMATION: Exam: XR Chest Exam date and time: 05/08/2021 4:28 PM Age: 50 years old Clinical indication: Device placement; Ng tube; Additional info: Ng tube placement TECHNIQUE: Imaging protocol: XR of the chest. Views: 1 view. COMPARISON: CT angio chest w abd pel w con 04/08/2021 10:36 PM FINDINGS: Tubes, catheters and devices: NG tube terminates in the stomach. Side port is located within the stomach. Lungs: Unremarkable. No consolidation. Pleural spaces: Unremarkable. No pleural effusion. No pneumothorax. Heart/Mediastinum: Unremarkable. No cardiomegaly. Bones/joints: Unremarkable. XR/XR chest 1V portable [id number] IMPRESSION: Proper positioning of NG tube in the stomach.
[2021-05-08 16:45] LABS: Bilirubin Urine Neg (Negative); Blood Urine Neg (Negative); Glucose Urine UA Norm (Normal); Ketones Urine Negative (Negative); Leukocyte Esterase Urine Negative (Negative); Nitrate Urine Negative (Negative); Protein Urine Neg (Negative); Urine Appearance Clear (CLEAR); Urine Color Yellow (Yellow); Urobilinogen Urine Norm (Negative); pH Urine 5 (5-7)
[2021-05-08 17:15] LABS: Lactate (Lactic Acid level) 2.6 mmol/L (0.5-2.2)
--- NOTE | 2021-05-08 17:34 | P.HP_ITS ---
Providers/Chief Complaint Admitting Physician: Luis Armando Cobos DO Primary Care Provider: Jorden Casey MD Chief Complaint: ABD N/V History of Present Illness Radha Boles is a 50 year old female presented to hospital with 1 day history of worsening abdominal pain. She reports that she woke up at 4 AM this morning with midline abdominal pain that was sharp and constant. Palpation and movement made it worse. She is having nausea and vomiting. She denies any diarrhea or constipation and is having bowel movements and passing flatus. She denies any fever or chills. She never had pain like this before. She had complicated diverticulitis with a microperforation 6 weeks ago which resolved without surgery and underwent an uncomplicated colonoscopy 4 days ago. She has a h istory of hysterectomy and a separate right oophorectomy. Review of Systems General: Reports: 10 or more systems reviewed and unremarkable except in HPI and below Medications/Allergies Home Medications Medication Instructions Recorded Confirmed Last Taken Type nitroglycerin 0.4 mg sublingual 0.4 mg SUBLINGUAL Q5M PRN #25 tab 05/13/20 05/08/21 Unknown Rx tablet estradiol 1 mg tablet 1 mg PO DAILY 21 Days #90 tab 12/27/20 05/08/21 05/07/21 Rx naproxen [Naprosyn] 500 mg PO BID PRN #20 tab 04/08/21 05/08/21 05/03/21 Rx amitriptyline 10 mg PO DAILY 05/03/21 05/08/21 05/07/21 History Allergies Allergy/AdvReac Type Severity Reaction Status Date / Time lisinopril AdvReac cough Verified 03/25/21 07:52 PFSH Acute PFSH: Surgical History History of delivery (1) History of total hysterectomy 2005-LAP S/P right oophorectomy Status post colonoscopy (05/05/21) Family History Other CAD (coronary artery disease) Diabetes Stroke Denies family history of Dementia Chronic kidney disease (CKD) Lung disease Cancer Hypertension Social History Smoking and tobacco status: never smoked Alcohol intake: never Vitals/I&O/Wt Last Vital Signs Temp 97.6 F 08/08/21 19:17 Pulse 72 05/08/21 19:17 Resp 18 05/08/21 21:20 BP 128/84 05/08/21 19:17 Pulse Ox 98 05/08/21 19:17 05/08/21 05/08/21 05/08/21 06:59 14:59 22:59 Intake Total 100 / 100 Output Total 250 / 250 Balance -150 / -150 Weight last 48 hrs Weight 160 lb Weight 160 lb Physical Exam Const: COMMON NORMALS: average body habitus, patient oriented x3 and no limitations; apparent distress (patient appears in significant pain) HENMT: COMMON NORMALS: normocephalic and atraumatic Eye: COMMON NORMALS: Equal, round and reactive pupils present, EOMs intact bilaterally and conjunctivae normal Chest: COMMONS NORMALS: normal inspection of the chest and normal palpation of entire chest wall Resp: COMMON NORMALS: normal respiratory effort, No retractions and No use of accessory muscles Cardio: COMMON NORMALS: no JVD, regular rate and regular rhythm GI: OTHER: Soft, tender to palpation in the mid abdomen and left upper quadrant. No guarding rebound or masses Back/Pelvis: COMMON NORMALS: no CVA tenderness and thoracic and lumbar spine normal to inspection Extremity: COMMON NORMALS: normal to inspection, full ROM and no joint enlar gement Neuro: COMMON NORMALS: patient oriented x3, CN's II-XII intact bilaterally, moves all extremities and no focal motor deficits Psych: COMMON NORMALS: mental status grossly normal, Normal thought process present, cooperative and speech normal Data : 05/08/21 14:14 05/08/21 14:14 A&P Assessment and plan (1) Partial small bowel obstruction: Patient's presentation is consistent with a partial small bowel obstruction. She is passing gas and having bowel movements. This is somewhat complicated with recent history of complicated diverticulitis and a recent colonoscopy, which was uncomplicated. Therapy is to be a transition point in the right hemipelvis. However I do not see any small bowel dilated past 3 cm. There is some fecalization of the proximal bowel. I do not see any evidence of diverticulitis. There is significant chronic inflammatory changes/possible scarring in the right abdomen, along with evidence of granulomatous disease in the omentum. I will admit to the hospital for observation, place an NG tube, put on IV fluids and perform aggressive electrolyte management. I will also perform serial abdominal exams as she is having significant pain. Pain control and nausea co ntrol. I spoke with Dr. Tyler and will sign the patient out in the morning. No acute surgical intervention at this time Please see orders. 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
[2021-05-08] MEDS: metoclopramide 5 mg/mL SDV 2 mL 10 MG IVP (17:54)
[2021-05-08] MEDS: HYDROmorphone 1 mg/mL INJ 1 mL 0.5 MG IVP (17:55)
[2021-05-08] MEDS: cefTRIAXone 1,000 MG in sodium chloride 0.9% (plus) 50 ML 100 MG IV (18:19)
[2021-05-08] MEDS: sodium chloride 0.9% 1,000 ML 150 ML IV (19:32)
[2021-05-08] MEDS: metroNIDAZOLE IV 500 MG/100 ML PREMIX 100 MG IV (19:33)
--- NOTE | 2021-05-08 19:34 | PC.NURSE ---
ADMIT NOTE Pt received to floor from ER at 1900. Resting in bed. Reports severe upper abd pain started today and also has had nausea with vomiting. Says pain is gone right now. Had pain med in the ER. NG tube in place via right nare and hooked to LLIS. Resecured tube. Is aware will Be NPO. IV fluids started at 150ml/hr rate and IV Flagyl started. Was reported that this med did not get given in the ER. Pts abdomen is soft with minimal tenderness upper abd. Says she had a small formed BM this mornng. Tells me she recently had a Colonoscopy which did not show any problems.
[2021-05-08] MEDS: enoxaparin 40 mg/0.4 mL Syringe SUBCUT (19:50)
[2021-05-08] MEDS: pantoprazole 40 mg SDV IVP (20:56)
[2021-05-08] MEDS: morphine 4 mg/mL SDV 1 mL IVP (21:20)
--- NOTE | 2021-05-08 22:11 | PC.NURSE ---
DR VISIT Dr Cobos in to see pt and talked with her and her . Questions and plan of care discussed
[2021-05-09] VITALS (10 sets, daily range): BP systolic 125–134; BP diastolic 78–87; PULSE 81–98; RESP 16–18; TEMP 36.3–36.7; O2SAT 95–98
--- NOTE | 2021-05-09 | US_ITS ---
WS: [id number] ULTRASOUND PELVIS TECHNIQUE: Transvaginal. CLINICAL INFORMATION: ELEVATED CA 125 : No. COMPARISON: April 14, 2021, CT May 08, 2021 FINDINGS: Uterus Prior hysterectomy. No cystic or solid pelvic masses. Adnexa: Neither ovary is visualized. No adnexal masses. Free fluid: Present Other findings: Distended loops of small bowel compatible with small bowel obstruction seen on the re cent CT. US/US transvaginal [id number] IMPRESSION: 1. Prior hysterectomy. 2. Neither ovary is visualized. No adnexal masses. 3. Small amount of free fluid in the pelvis. 4. Distended loops of small bowel compatible with small bowel obstruction seen on the recent CT.
[2021-05-09] MEDS: morphine 4 mg/mL SDV 1 mL IVP ×4 (00:58→15:59)
[2021-05-09] MEDS: sodium chloride 0.9% 1,000 ML 150 ML IV (01:58)
[2021-05-09 05:06] LABS: Basophils % 0.3 %; Hematocrit 40.8 % (37.0-47.0); Hemoglobin 13.7 g/dL (11.5-15.3); Lymphocytes # 1.6 10^3/uL (0.8-4.8); Mean Corpuscular HGB Conc 33.6 g/dL (30.0-36.0); Mean Corpuscular Hemoglobin 30.3 pg (28.0-34.0); Mean Corpuscular Volume 90.3 fL (81-99); Mean Platelet Volume 9.1 fL (7.4-10.4); Monocytes # 0.8 10^3/uL (0.2-0.9); Monocytes % 11.2 %; Neutrophils # 4.74 10^3/uL (1.8-7.7); Neutrophils % 66.4 %; Nucleated Red Blood Cells % 0 %; Platelet Count 245 10^3/cmm (130-400); Red Blood Count 4.52 10^6/uL (4.1-5.3); Red Cell Distribution Width 12.9 % (12.1-15.1); White Blood Count 7.1 10^3/uL (4.0-10.0)
[2021-05-09 05:23] LABS: Lactic Sepsis W/Reflex 0.7 mmol/L (0.5-2.2)
[2021-05-09 05:35] LABS: Alanine Aminotransferase 18 U/L (0-33); Albumin Level 3.5 g/dL (3.5-5.2); Alkaline Phosphatase 88 IU/L (35-105); Anion Gap 12.1 (5-19); Aspartate Amino Transferase 15 U/L (0-32); Blood Urea Nitrogen 9 mg/dL (6-20); Calcium 7.8 mg/dL (8.5-10.5); Carbon Dioxide 25 mmol/L (22-29); Chloride 106 mmol/L (98-107); Creatinine Clr Calc Pharmacy 105.8012; Globulin 1.9 g/dL (1.3-4.6); Glomerular Filtration Rate 106.3 mL/min (90-130); Glucose 112 mg/dL (65-115); Osmolality Calculated 287 mOsm/kg (285-295); Phosphorus 3.6 mg/dL (2.5-4.5); Potassium 4.1 mmol/L (3.5-5.1); Sodium 139 mmol/L (136-145); Total Bilirubin 0.3 mg/dL (0.15-1.2); Total Protein 5.4 g/dL (6.6-8.7)
--- NOTE | 2021-05-09 05:45 | PC.NURSE ---
SHIFT SUMMARY Has rested well. Wakes easily when in to check on her. Has received X2 doses of IV Morphine since admission. Denies pain this am. Abd remains soft with mild upper abd tenderness. IV fluids infusing at 150ml/hr rate. Has had 50ml drainage from NG tube. Remains NPO and using mouth swabs.
[2021-05-09] MEDS: ondansetron 2 mg/ML SDV 2 mL 4 MG IVP ×2 (07:00→16:00)
--- NOTE | 2021-05-09 07:25 | XRR_ITS ---
PROCEDURE INFORMATION: Exam: XR Abdomen Exam date and time: 05/09/2021 7:25 AM Age: 50 years old Clinical indication: Nausea and vomiting; Prior surgery; Surgery type: Hyst; Patient HX: N/v, epigastric pain; Additional info: Sbo TECHNIQUE: Imaging protocol: XR of the abdomen. Views: 2 Views. Upright and supine views. COMPARISON: CT abdomen pelvis w con* [id number] 05/08/2021 2:40 PM FINDINGS: Tubes, catheters and devices: NG tube is noted in the stomach. Gastrointestinal tract: Dilated loops of small bowel in the left upper quadrant in keeping with known small bowel obstruction. Intraperitoneal space: No free air. Organs: There is contrast noted in the urinary bladder. Bones/joints: Degenerative changes of the lumbar spine. XR/XR abdomen min 2V [id number] IMPRESSION: Dilated loops of small bowel in the left upper quadrant in keeping with known small bowel obstruction.
[2021-05-09] MEDS: pantoprazole 40 mg SDV IVP ×2 (08:30→22:25)
[2021-05-09] MEDS: D5-NS 0.45% + KCL 20 mEq 20 MEQ/1,000 ML BAG 100 MEQ IV (13:42)
[2021-05-09] MEDS: lanolin oint 7 gm 1 APPLIC TOPICAL (16:14)
--- NOTE | 2021-05-09 17:10 | PM.PN ---
Subjective Subjective: Interval history: Patient is doing better today though she still had nausea and vomiting with the NG tube, no flatus or BM overnight Vitals/I&O/Wt Last Vital Signs Temp 97.9 F 05/09/21 15:37 Pulse 98 05/09/21 15:37 Resp 16 05/09/21 15:59 BP 134/81 05/09/21 15:37 Pulse Ox 98 05/09/21 15:37 05/09/21 05/09/21 05/09/21 06:59 14:59 22:59 Intake Total 965 / 1065 0 / 0 Output Total 400 / 650 Balance 565 / 415 0 / 0 Weight last 48 hrs Weight 160 lb Weight 160 lb Physical Exam Narrative: EXAM NARRATIVE: Abdomen: Soft, nondistended, tender in the epigastric region with voluntary guarding, no rigidity Data : 05/09/21 04:52 05/09/21 04:52 A&P Assessment and plan (1) Partial small bowel obstruction: 50-year-old female with history of prior hysterectomy and oophorectomy who presents with abdominal pain, nausea and vomiting. CT scan showed fecalization and distended bowel loops consistent with bowel obstruction. Lactate is down to 0.7 today from 2.6 Continue NG tube to LIS Protonix 40 mg twice daily Lovenox for DVT prophylaxis IV fluids 100 cc/h Daily labs Abdominal series in the morning Status: Acute (2) Elevated CA-125: CT abdomen pelvis and transabdominal ultrasound did not show any adnexal masses. 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
[2021-05-09] MEDS: acetaminophen 325 mg Tablet 650 MG PO (17:13)
[2021-05-09] MEDS: phenol oral Spray 177 mL 5 SPRAY MUCOUS MEM (17:14)
[2021-05-09] MEDS: enoxaparin 40 mg/0.4 mL Syringe SUBCUT (19:32)
--- NOTE | 2021-05-09 19:42 | PC.NURSE ---
shift summary pt had 75ml brown output from NG tube this shift. she had more pain and nausea when ambulating, her PRN morphine caused her to have rebound headaches which RN Obie got an order for tylenol to help with that, pt stated it helped. This nurse irrigated pt NG with 50 ml water, per Dr Tyler order. pt tolerated well.
[2021-05-10] VITALS (8 sets, daily range): BP systolic 119–146; BP diastolic 74–84; PULSE 77–115; RESP 16–18; TEMP 36.4–37.1; O2SAT 94–97
[2021-05-10] MEDS: acetaminophen 325 mg Tablet 650 MG PO (00:40)
[2021-05-10] MEDS: D5-NS 0.45% + KCL 20 mEq 20 MEQ/1,000 ML BAG 100 MEQ IV ×2 (00:42→16:48)
[2021-05-10 03:12] LABS: Basophils % 0.4 %; Eosinophils % 0.9 %; Hematocrit 40.2 % (37.0-47.0); Lymphocytes # 1.7 10^3/uL (0.8-4.8); Lymphocytes % 36.6 %; Mean Corpuscular HGB Conc 32.3 g/dL (30.0-36.0); Mean Corpuscular Hemoglobin 29.7 pg (28.0-34.0); Mean Platelet Volume 8.9 fL (7.4-10.4); Monocytes # 0.7 10^3/uL (0.2-0.9); Monocytes % 14.6 %; Neutrophils # 2.16 10^3/uL (1.8-7.7); Neutrophils % 47.1 %; Nucleated Red Blood Cells % 0 %; Platelet Count 223 10^3/cmm (130-400); Red Blood Count 4.37 10^6/uL (4.1-5.3); Red Cell Distribution Width 12.7 % (12.1-15.1); White Blood Count 4.6 10^3/uL (4.0-10.0)
[2021-05-10 03:35] LABS: Alanine Aminotransferase 18 U/L (0-33); Albumin Level 3.2 g/dL (3.5-5.2); Alkaline Phosphatase 78 IU/L (35-105); Anion Gap 11.8 (5-19); Aspartate Amino Transferase 17 U/L (0-32); Blood Urea Nitrogen 6 mg/dL (6-20); Calcium 7.9 mg/dL (8.5-10.5); Carbon Dioxide 26 mmol/L (22-29); Chloride 103 mmol/L (98-107); Creatinine Clr Calc Pharmacy 105.8012; Globulin 1.9 g/dL (1.3-4.6); Glomerular Filtration Rate 106.3 mL/min (90-130); Glucose 120 mg/dL (65-115); Osmolality Calculated 283 mOsm/kg (285-295); Phosphorus 2.4 mg/dL (2.5-4.5); Potassium 3.8 mmol/L (3.5-5.1); Sodium 137 mmol/L (136-145); Total Bilirubin 0.4 mg/dL (0.15-1.2); Total Protein 5.1 g/dL (6.6-8.7)
--- NOTE | 2021-05-10 06:00 | XRR_ITS ---
PROCEDURE INFORMATION: Exam: XR Abdomen Exam date and time: 05/10/2021 6:00 AM Age: 50 years old Clinical indication: Condition or disease; Intestinal condition; Obstruction; Prior surgery; Surgery type: Hyst; Additional info: Sbo TECHNIQUE: Imaging protocol: XR of the abdomen. Views: 2 Views. Upright and supine views. COMPARISON: CR XR abdomen min 2V [id number] 05/09/2021 8:11 AM FINDINGS: Tubes, catheters and devices: A nasogastric tube is present in the stomach. Gastrointestinal tract: There are multiple loops of dilated small bowel in the abdomen which are consistent with a small-bowel obstruction. The dilatation has not significantly changed. There is prominent amount of stool in the right-sided colon. The colon is not significantly dilated. Intraperitoneal space: No free air seen.. Bones/joints: Unremarkable for age. XR/XR abdomen min 2V [id number] IMPRESSION: 1. Stable small bowel dilatation consistent with small bowel obstruction. 2. Nasogastric tube in the stomach.
--- NOTE | 2021-05-10 08:27 | PC.NURSE ---
Shift Note Frequent safety and comfort rounds continue. Orders and/or nursing care completed as indicated. Patient monitored for response to intervention and treatment(s). Education provided includes oxygen safety, iv pump and medication administration, ng tube management and care, and medications. Patient and/or food service representative verbally acknowledged understanding. Will continue to monitor.
[2021-05-10] MEDS: magnesium citrate Btl 296 mL 148 ML PO (08:52)
[2021-05-10] MEDS: pantoprazole 40 mg SDV IVP ×2 (08:56→23:19)
[2021-05-10] MEDS: ondansetron 2 mg/ML SDV 2 mL 4 MG IVP (11:06)
[2021-05-10] MEDS: sucralfate 1 gm/10 mL Oral Liq UDC PO ×3 (12:12→21:22)
[2021-05-10] MEDS: morphine 4 mg/mL SDV 1 mL IVP (15:10)
[2021-05-10] MEDS: phenol oral Spray 177 mL 5 SPRAY MUCOUS MEM (16:52)
--- NOTE | 2021-05-10 17:48 | PM.PN ---
Subjective Subjective: Interval history: She did better yesterday, did not require any pain medications last night, no nausea or vomiting, NG output has been minimal. Patient feels like she wants to have a bowel movement but has not had any flatus or BM yet Vitals/I&O/Wt Last Vital Signs Temp 98.2 F 05/10/21 15:30 Pulse 77 05/10/21 15:30 Resp 16 05/10/21 15:30 BP 124/81 05/10/21 15:30 Pulse Ox 97 05/10/21 15:30 05/10/21 05/10/21 05/10/21 06:59 14:59 22:59 Intake Total 950 / 1890 0 / 1000 1000 / 1000 Output Total 700 / 775 1000 / 1000 Balance 250 / 1115 0 / 0 0 / 0 Weight last 48 hrs Weight 160 lb Physical Exam Narrative: EXAM NARRATIVE: Abdomen: Soft, nondistended, minimally tender in the epigastric region, no guarding or rigidity, NG tube to low intermittent suction Data : 05/10/21 02:54 05/10/21 02:54 A&P Assessment and plan (1) Partial small bowel obstruction: 50-year-old female with history of prior hysterectomy and oophorectomy who presents with abdominal pain, nausea and vomiting. CT scan showed fecalization and distended bowel loops consistent with bowel obstruction. Abdominal x-ray shows persistent dilated small bowel loops, moderate amount of stools in the right colon We will attempt clamping the NG tube and start clear liquid diet Protonix 40 mg twice daily, Carafate twice daily We will try tap water and milk of molasses enema today along with a bottle of magnesium citrate Lovenox for DVT prophylaxis IV fluids 100 cc/h Daily labs Abdominal series in the morning Status: Acute (2) Elevated CA-125: CT abdomen pelvis and transabdominal ultrasound did not show any adnexal masses. 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
--- NOTE | 2021-05-10 17:56 | PC.NURSE ---
Dr Tyler ordered milk and molasses enema due to no BM or flatulence since this am. pt has no nausea or pain at the moment and has been been ambulating in room.
[2021-05-10] MEDS: enoxaparin 40 mg/0.4 mL Syringe SUBCUT (18:37)
[2021-05-11 04:00] VITALS: BP 118/73; PULSE 96; RESP 18; TEMP 36.8; O2SAT 97
[2021-05-11 04:14] LABS: Basophils % 0.3 %; Eosinophils % 0.6 %; Hematocrit 39.8 % (37.0-47.0); Hemoglobin 13.2 g/dL (11.5-15.3); Lymphocytes # 2.2 10^3/uL (0.8-4.8); Lymphocytes % 34.1 %; Mean Corpuscular HGB Conc 33.2 g/dL (30.0-36.0); Mean Corpuscular Hemoglobin 29.9 pg (28.0-34.0); Mean Corpuscular Volume 90.2 fL (81-99); Monocytes # 0.8 10^3/uL (0.2-0.9); Monocytes % 12.9 %; Neutrophils # 3.26 10^3/uL (1.8-7.7); Neutrophils % 51.8 %; Nucleated Red Blood Cells % 0 %; Platelet Count 252 10^3/cmm (130-400); Red Blood Count 4.41 10^6/uL (4.1-5.3); Red Cell Distribution Width 12.5 % (12.1-15.1); White Blood Count 6.3 10^3/uL (4.0-10.0)
[2021-05-11 04:49] LABS: Alanine Aminotransferase 20 U/L (0-33); Albumin Level 3.4 g/dL (3.5-5.2); Alkaline Phosphatase 79 IU/L (35-105); Anion Gap 12.1 (5-19); Aspartate Amino Transferase 20 U/L (0-32); Blood Urea Nitrogen 7 mg/dL (6-20); Calcium 8.9 mg/dL (8.5-10.5); Carbon Dioxide 27 mmol/L (22-29); Chloride 107 mmol/L (98-107); Creatinine Clr Calc Pharmacy 90.6867; Globulin 2.7 g/dL (1.3-4.6); Glomerular Filtration Rate 88.9 mL/min (90-130); Glucose 127 mg/dL (65-115); Osmolality Calculated 294 mOsm/kg (285-295); Phosphorus 2.7 mg/dL (2.5-4.5); Potassium 4.1 mmol/L (3.5-5.1); Sodium 142 mmol/L (136-145); Total Bilirubin 0.4 mg/dL (0.15-1.2); Total Protein 6.1 g/dL (6.6-8.7)
--- NOTE | 2021-05-11 06:00 | XR_ITS ---
WS: [id number] Abdomen series, portable supine and upright 05/11/2021 Clinical Data: sbo Comparison: Flat and upright abdomen, 05/10/2021 Findings: The nasogastric tube remains curled in the body of the stomach. The small bowel air has pro gressed into the colon. There is still moderate dilatation of the small bowel loops. No abnormal intr a-abdominal masses or calcifications are seen. XR/XR abdomen min 2V [id number] Impression: 1. Improvement in small bowel obstruction with progression of air into the colo n. 2. Nasogastric tube remains curled in the body of the stomach.
[2021-05-11] MEDS: sucralfate 1 gm/10 mL Oral Liq UDC PO ×3 (06:46→17:43)
[2021-05-11] MEDS: D5-NS 0.45% + KCL 20 mEq 20 MEQ/1,000 ML BAG 100 MEQ IV (06:51)
[2021-05-11 08:47] VITALS: BP 128/69; PULSE 84; RESP 17; TEMP 36.6; O2SAT 98
[2021-05-11] MEDS: magnesium citrate Btl 296 mL PO (09:01)
[2021-05-11] MEDS: pantoprazole 40 mg SDV IVP (09:01)
--- NOTE | 2021-05-11 11:47 | PM.PN ---
Subjective Subjective: Interval history: Patient had multiple bowel movements last night, no nausea or vomiting with the NG tube clamped, tolerating clear liquid diet, denies any abdominal pain Vitals/I&O/Wt Last Vital Signs Temp 97.8 F 05/11/21 08:47 Pulse 84 05/11/21 08:47 Resp 17 05/11/21 08:47 BP 128/69 05/11/21 08:47 Pulse Ox 98 05/11/21 08:47 05/10/21 05/11/21 05/11/21 22:59 06:59 14:59 Intake Total 1240 / 2298.333 1058.333 / 2298.333 180 / 180 Output Total 2000 / 2200 200 / 2200 200 / 200 Balance -760 / 98.333 858.333 / 98.333 - / Physical Exam Narrative: EXAM NARRATIVE: Abdomen: Soft, nondistended, nontender Data : 05/11/21 03:47 05/11/21 03:47 A&P Assessment and plan (1) Partial small bowel obstruction: 50-year-old female with history of prior hysterectomy and oophorectomy who presents with abdominal pain, nausea and vomiting. CT scan showed fecalization and distended bowel loops consistent with bowel obstruction. Abdominal x-ray shows air within the colon Patient had multiple bowel movements and denies any nausea or vomiting, bowel obstruction has resolved DC IV fluids Advance to full liquid diet DC NG tube If she tolerates her lunch and dinner she should be able to go home Status: Acute (2) Elevated CA-125: CT abdomen pelvis and transabdominal ultrasound did not show any adnexal masses. 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
[2021-05-11 12:34] VITALS: BP 96/65; PULSE 94; RESP 18; TEMP 36.7; O2SAT 95
--- NOTE | 2021-05-11 13:52 | P.DS_ITS ---
Discharge Providers Date of Admission: 05/09/21 17:13 Date of Discharge: May 11, 2021 Attending Provider at Admission: Luis Armando Cobos DO Attending Provider at Discharge: Sukhdev Tyler MD Primary Care Provider: Jorden Casey MD Diagnoses at Discharge Discharge Diagnosis (1) Partial small bowel obstruction: Status: Resolved (2) Elevated CA-125: Status: Acute Reason for Visit Reason for Visit: ABD N/V Hospital Course Hospital Course This is a 50-year-old female who had previously been diagnosed with diverticulitis which was managed conservatively with oral antibiotics. The fluid collection and diverticulitis on follow-up CT scan had resolved. Patient underwent colonoscopy on05/05/2021. She presented to the ER on 05/08/2021 with abdominal pain, nausea and vomiting. A CT abdomen pelvis showed possible bowel obstruction. Patient has had prior hysterectomy and oophorectomy. During previous work-up she is also noted to have elevated CA-125. Her pain was localized to the epigastric region and therefore she was presumed to have gastritis and started on Protonix 40 mg twice daily and Carafate 1 g twice daily. Patient also has a longstanding history of constipation and small bowel obstruction was assumed to be secondary to adhesions. An NG tube was placed and patient was given enemas and bottles of magnesium citrate. By 05/11/2021 she had return of bowel function where she had multiple bowel movem ents. Her NG tube was discontinued and her abdominal pain had resolved. She was started on full liquid diet and discharged home Discharge Data 2 Data Completed and Pending: Completed Studies During Hospitalization Category Date Time Status CT abdomen pelvis w con* [id number] Urge nt Cat Scan 05/08/21 14:14 Completed XR abdomen min 2V 01548 Routine Exams 05/09/21 07:25 Completed XR abdomen min 2V [id number] Routine Exams 05/10/21 06:00 Completed XR abdomen min 2V [id number] Routine Exams 05/11/21 06:00 Completed XR chest 1V mahendra ble [id number] Stat Exams 05/08/21 16:28 Completed US transvaginal 7 [id number] Routine Ultrasound 05/09/21 Completed Labs from last 24 hours 05/11/21 05/11/21 03:47 03:47 WBC 6.3 RBC 4.41 Hgb 13.2 Hct 39.8 MCV 90.2 MCH 29.9 MCHC 33.2 RDW 12.5 Plt Count 252 MPV 9.0 Neut % (Auto) 51.8 Lymph % (Auto) 34.1 Dawson % (Auto) 12.9 Eos % (Auto) 0.6 Baso % (Auto) 0.3 Neut # (Auto) 3.26 Lymph # (Auto) 2.2 Dawson # (Auto) 0.8 Eos # (Auto) 0.0 Baso # (Auto) 0.0 Nucleated RBC % (a uto) 0 Nucleated RBCs # 0.0 Sodium 142 Potassium 4.1 Chloride 107 Carbon Dioxide 27 Anion Gap 12.1 BUN 7 Creatinine 0.7 GFR Calculation 88.9 L Glucose 127 H Calculated Osmolal ity 294 Calcium 8.9 Phosphorus 2.7 Total Bilirubin 0.4 AST 20 ALT 20 Alkaline Phosphata se 79 Total Protein 6.1 L Albumin 3.4 L Globulin 2.7 Vitals: Last Vital Signs Temp 98.0 F 05/11/21 12:34 Pulse 94 05/11/21 12:34 Resp 18 05/11/21 12:34 BP 96/65 05/11/21 12:34 Pulse Ox 95 05/11/21 12:34 Discharge Plan Discharge Patient Disposition: Home Condition: Stable Prescriptions: New Zofran 4 mg tablet 4 mg PO Q6H PRN (Reason: nausea and vomiting) Qty: 20 RF: 0 Protonix 40 mg tablet,delayed release (DR/EC) 40 mg PO BID Qty: 28 RF: 0 lactulose 10 gram/15 mL solution 15 ml PO BID Qty: 237 RF: 2 Continued nitroglycerin 0.4 mg tablet, sublingual 0.4 mg SUBLINGUAL Q5M PRN (Reason: chest pain) Qty: 25 RF: 1 estradiol [Estrace] 1 mg tablet 1 mg PO DAILY 21 Days Qty: 90 RF: 1 amitriptyline 10 mg tablet 10 mg PO DAILY RF: 0 naproxen [Naprosyn] 500 mg tablet 500 mg PO BID PRN (Reason: pain) Qty: 20 RF: 0 Discharge Orders: Discharge Order (Routine); Ordered 05/11/21 Ordered By: Sukhdev Tyler Referrals: Sukhdev Tyler MD [Physician] - 05/20/21 9:30 am Patient Instructions: Bowel Obstruction, Lactulose (By mouth), Ondansetron (By mouth), Pantoprazole (By mouth), Opioid Safety Activity Restrictions/Additional Instructions: Diet Advance to normal diet as tolerated over the next few days from a liquid diet, increase fluid intake as much as possible. Activity Ad shankar. Return to work/school You can return to work/ school whenever you feel ready Driving You can resume driving whenever you feel ready. Medications Pain You might have occasional episodes of pain but if you continue to have worsening abdominal pain you might need to come to the emergency room for evaluation Nausea Use Zofran as needed if you develop any nausea Constipation Lactulose 15 cc p.o. twice daily has been prescribed for constipation, start on this medication and adjust the dose if needed, in case you are having multiple bowel movements a day Shower It is ok to shower Contact physician Call the office at [phone] during office hours or go the Emergency Room ?Fever to 100.4 or greater ?Shaking chills ?Pain that increases over time ?Persistent nausea or inability to take in liquids Discharge Attestations Time Spent in Discharge Care*: less than 30 min Quality Metrics Clinical Quality Measures During this hospital stay, did patient experience: None Coding Level of Care Code Acute Marcing MINNA note Diagnoses Partial small bowel obstruction K56.600 Elevated CA-125 R97.1
[2021-05-11 18:31] VITALS: BP 96/65; PULSE 94; RESP 18; TEMP 36.7; O2SAT 95
--- NOTE | 2021-05-16 09:45 | PC.SOCIAL ---
hospital follow up call made. patient currently in the hospital.
== END 2021-05-11 18:00 | disposition home or self-care (01) | DRG 390 ==
LOC: ER 14:08 → MEDSURG 18:15
PROVIDERS: Admitting Provider Surgery; Emergency Provider Emergency Medicine; PCP Family Medicine; Visit Provider Surgery
DX: K56.600 Partial intestinal obstruction, unspecified as to cause (principal); K29.70 Gastritis, unspecified, without bleeding; R97.1 Elevated cancer antigen 125 [CA 125]; Z87.59 Personal history of other complications of pregnancy, childbirth and the puerperium; Z90.710 Acquired absence of both cervix and uterus; Z82.49 Family history of ischemic heart disease and other diseases of the circulatory system; Z83.3 Family history of diabetes mellitus; Z82.3 Family history of stroke; Z87.19 Personal history of other diseases of the digestive system
CPT/HCPCS: 36415; 71045; 74019; 74177; 76830; 80053; 81003; 83605; 83690; 84100; 85025; 96372; C9113; G0378; J0696; J1170; J1650; J2270; J2405; J2765; J3010; J7030; Q9967; S0030

== ENCOUNTER 2023-11-16 18:31 | Inpatient (IN) | payer OTHER, SELFPAY ==
[2023-11-16 18:36] VITALS: BP 159/102; PULSE 132; RESP 18; TEMP 37.7; O2SAT 97; BMI 31.1
--- NOTE | 2023-11-16 18:46 | XRR_ITS ---
PROCEDURE INFORMATION: Exam: XR Chest Exam date and time: 11/16/2023 7:13 PM Age: 53 years old Clinical indication: Cough and fever; Additional info: Fever/cough TECHNIQUE: Imaging protocol: Radiologic exam of the chest. Views: 1 view. COMPARISON: CR XR chest 1V portable [id number] 05/08/2021 4:42 PM FINDINGS: Lungs: No focal consolidation. Pleural spaces: No evidence of pneumothorax. No evidence of pleural effusion. Heart/Mediastinum: Left subclavian approach MediPort with tip terminating in the distal SVC. Cardiomediastinal silhouette is within normal limits. Bones/joints: No evidence of acute osseous abnormality. XR/XR chest 1V portable [id number] IMPRESSION: 1. No acute cardiopulmonary abnormality.
[2023-11-16 19:47] LABS: Basophils % 0.8 %; Eosinophils % 0.8 %; Hematocrit 36.1 % (36-47); Lymphocytes # 0.8 10^3/uL (0.8-4.8); Lymphocytes % 58.6 %; Mean Corpuscular HGB Conc 33.8 g/dL (30-55); Mean Corpuscular Hemoglobin 30.9 pg (27-33); Mean Corpuscular Volume 91.4 fl (85-98); Mean Platelet Volume 9.6 fL (7.4-10.4); Monocytes # 0.4 10^3/uL (0.2-0.9); Monocytes % 31.3 %; Neutrophils % 7.7 %; Nucleated Red Blood Cells % 0 %; Platelet Count 83 10^3/cmm (157-399); Red Blood Count 3.95 10^6/uL (3.85-5.65); Red Cell Distribution Width 13.1 % (12.1-15.1); White Blood Count 1.28 10^3/uL (3.29-11.43)
[2023-11-16 20:01] LABS: Alanine Aminotransferase 38 U/L (0-33); Albumin Level 3.6 g/dL (3.5-5.2); Alkaline Phosphatase 175 U/L (35-105); Anion Gap 15.6 (5-19); Aspartate Amino Transferase 23 U/L (0-32); Blood Urea Nitrogen 14 mg/dL (6-20); Calcium 9.2 mg/dL (8.5-10.5); Carbon Dioxide 21 mmol/L (22-29); Chloride 101 mmol/L (98-107); Globulin 3.3 g/dL (1.3-4.6); Glomerular Filtration Rate 87.9 mL/min (90-130); Glucose 121 mg/dL (65-115); Osmolality Calculated 280 mOsm/kg (285-295); Potassium 3.6 mmol/L (3.5-5.1); Sodium 134 mmol/L (136-145); Total Bilirubin 0.3 mg/dL (0.15-1.2); Total Protein 6.9 g/dL (6.6-8.7)
[2023-11-16 20:02] LABS: Lactic Sepsis W/Reflex 1.3 mmol/L (0.5-2.2)
[2023-11-16 20:08] LABS: Procalcitonin 0.37 ng/mL (0-0.5)
[2023-11-16 20:19] VITALS: PULSE 112; RESP 20; TEMP 37.5; O2SAT 95
[2023-11-16 21:08] LABS: Bilirubin Urine Neg (Negative); Blood Urine Neg (Negative); Glucose Urine UA Norm (Normal); Ketones Urine Negative (Negative); Nitrate Urine Negative (Negative); Protein Urine Trace (Negative); Specific Gravity, Urine 1.015 (1.005-1.030); Urine Appearance Clear (CLEAR); Urine Color Yellow (Yellow); pH Urine 8 (5-7)
[2023-11-16 21:09] LABS: Add Urine Microscopic? YES; Leukocyte Esterase Urine Trace (Negative); Sulfosalicylic Acid Urine Negative (Negative); Urobilinogen Urine Norm (Negative)
[2023-11-16 21:10] LABS: Bacteria Urine TRACE /hpf; RBC Urine 0-4 /hpf (0-2); Squamous Epithelial Cell Urine 0-4 /hpf (0-5)
--- NOTE | 2023-11-16 21:13 | ED_ITS ---
HPI - Fever 2 General: Chief Complaint: Fever Stated Complaint: Fever, Sob, has ovarian Cancer Time Seen by Provider: 11/16/23 18:45 History of Present Illness: 51-year-old female presents emergency de partment with complaints of a fever intermittently for the previous 2 days. She states she did not take her temperature at home but is felt extremely hot and had fevers and chills and rigors. She states she has been taking ibuprofen every 4 hours and was advised to decrease her ibuprofen intake. The patient states that she was seen at the urgent care earlier today checked for flu and COVID which were both negative. She states she has a history of ovarian cancer that was initially in remission and has now recurred she is currently on chemotherapy. She was advised to come to the emergency department for additional evaluation treatment and care. Associated symptoms: Reports chills Review of Systems 2 General: Reports: 10 or more systems reviewed and unremarkable except in HPI and below Const: Reports: fever(s), chills, body aches, fatigue and malaise PFSH ED 2 PFSH: Surgical History Status post colonoscopy (05/05/21) S/P right oophorectomy History of total hysterectomy 2005-LAP History of delivery (1) Family History Other CAD (coronary artery disease) Diabetes Stroke Denies family history of Dementia Chronic kidney disease (CKD) Lung disease Cancer Hypertension Social History Smoking and tobacco/nicotine status: never used tobacco/nicotine Alcohol intake: never Substance/Drug Use: never Physical Exam 2 Narrative: EXAM NARRATIVE: Constitutional: The patient does appear acutely ill and has active chills and rigors. No acute distress at present. Alert and oriented-to person, place, time and situation. Head, eyes, ears, nose, mouth, throat: Normocephalic, atraumatic. Pupils-equal, round, reactive to light. No scleral icterus. Normal-appearing external ears. Normal appearing nasal turbinates, no drainage. No obvious oral lesions, posterior oropharynx without erythema or exudates. Neck: Supple, trachea is midline, no lymphadenopathy, no jugular venous distension, thyromegaly, or carotid bruits. Carotid upstrokes are brisk bilaterally. Lungs: clear to auscultation to all lung hernandez. Symmetrical rise and fall of chest, no obvious signs of increased work of breathing at present. Thorax: She does have a left anterior chest wall port. Cardiac: Sinus tachycardia noted on the monitor., positive S1, S2. No murmurs, rubs or gallops that I can appreciate Abdomen: Soft, non-tender to palpation, normal active bowel sounds to all quadrants. No palpable masses, no organomegaly and abdominal bruits. Extremities: 2+ pulses in the upper extremities that are equal bilaterally, 2+ pulses in the lower extremities that are equal bilaterally. Non-edematous. Moves all extremities well, sensation to all extremities are noted. Skin: Warm, dry, intact. Course 2 Vital Signs: Vital signs: Vital Signs Temperature 97.7 F 11/19/23 12:47 Pulse Rate 86 11/19/23 12:47 Respiratory Rate 18 11/19/23 12:47 Blood Pressure 147/83 11/19/23 12:47 Pulse Oximetry 96 11/19/23 12:47 Oxygen Delivery Me thod Room Air 11/19/23 11:36 MDM - Fever Medical Decision Making Physical exam completed and documented given the patient's active chemotherapy I will obtain a CBC, CMP, ESR, CRP blood cultures procalcitonin and lactic acid as well as a urinalysis and a chest x-ray. I suspect her fevers possibly due to a urinary tract infection and is related to neutropenia. I have contacted the hospitalist physician to request admission to the hospital for neutropenic fever as her white blood cell count is 1.28 her platelet count is 83 and her ANC is 0.10. I will preemptively provide cefepime and have placed her in neutropenic precautions. Medical Records I reviewed the patient's medical records. Lab Data I reviewed the patient's lab results. 11/19/23 05:13 11/19/23 05:13 Radiology Impressions Chest X-Ray 11/16/23 18:46 IMPRESSION: 1. No acute cardiopulmonary abnormality. Sinuses CT 11/16/23 21:41 IMPRESSION: 1. Sphenoethmoid sinusitis. No evidence of inflammatory changes, fluid collection or abscess. Chest/Abdomen/Pelvis CT 11/17/23 14:09 IMPRESSION: Focal atelectasis in the right lower lobe of uncertain clinical significance Stable epicardial lymph node IMPRESSION: No acute findings. Laboratory Results WBC 1.28 10^3/uL (3.29-11.43) L 11/16/23 19:30 RBC 3.95 10^6/uL (3.85-5.65) 11/16/23 19: Hgb 12.20 g/dL (11.27-16.99) 11/16/23 19:30 Hct 36.1 % (36-47) 11/16/23 19: MCV 91.4 fl (85-98) 11/16/23 19: MCH 30.9 pg (27-33) 11/16/23 19: MCHC 33.8 g/dL (30-55) 11/16/23 19: RDW 13.1 % (12.1-15.1) 11/16/23: Plt Count 83 10^3/cmm (157-399) L 11/16/23 19: MPV 9.6 fL (7.4-10.4) 11/16/23 19: Neut % (Auto) 7.7 % 11/16/23: Lymph % (Auto) 58.6 % 11/16/23: Sibley % (Auto) 31.3 % 11/16/23 19: Eos % (Auto) 0.8 % 11/16/23: Baso % (Auto) 0.8 % 11/16/23: Neut # (Auto) 0.10 10^3/uL (1.8-7.7) L* 11/16/23: Lymph # (Auto) 0.8 10^3/uL (0.8-4.8) 11/16/23: Sibley # (Auto) 0.4 10^3/uL (0.2-0.9) 11/16/23 19: Eos # (Auto) 0.0 10^3/uL (0.0-0.8) 11/16/23: Baso # (Auto) 0.0 10^3/uL (0.0-0.1) 11/16/23 19:30 Nucleated RBC % (auto) 0 % 11/16/23 19:30 Nucleated RBCs # 0.0 /100WBC 11/16/23 19:30 Sodium 134 mmol/L (136-145) L 11/16/23 19:30 Potassium 3.6 mmol/L (3.5-5.1) 11/16/23 19:30 Chloride 101 mmol/L (98-107) 11/16/23 19:30 Carbon Dioxide 21 mmol/L (22-29) L 11/16/23 19:30 Anion Gap 15.6 (5-19) 11/16/23 19:30 BUN 14 mg/dL (6-20) 11/16/23 19:30 Creatinine 0.7 mg/dL (0.5-0.9) 11/16/23 19:30 GFR Calculation 87.9 mL/min (90-130) L 11/16/23 19:30 Glucose 121 mg/dL (65-115) H 11/16/23 19:30 Calculated Osmolality 280 mOsm/kg (285-295) L 11/16/23 19:30 Lactic Acid 1.3 mmol/L (0.5-2.2) 11/16/23 19:40 Calcium 9.2 mg/dL (8.5-10.5) 11/16/23 19:30 Total Bilirubin 0.3 mg/dL (0.15-1.2) 11/16/23 19:30 AST 23 U/L (0-32) 11/16/23 19:30 ALT 38 U/L (0-33) H 11/16/23 19:30 Alkaline Phosphatase 175 U/L (35-105) H 11/16/23 19:30 Total Protein 6.9 g/dL (6.6-8.7) 11/16/23 19:30 Albumin 3.6 g/dL (3.5-5.2) 11/16/23 19:30 Globulin 3.3 g/dL (1.3-4.6) 11/16/23 19:30 Procalcitonin 0.37 ng/mL (0-0.5) 11/16/23 19:30 Urine Color Yellow (Yellow) 11/16/23 20:35 Urine Appearance Clear (CLEAR) 11/16/23 20:35 Urine pH 8 (5-7) H 11/16/23 20:35 Ur Specific [place] 1.015 (1.005-1.030) 11/16/23 20:35 Urine Protein Trace (Negative) 11/16/23 20:35 Urine Glucose (UA) Norm (Normal) 11/16/23 20:35 Urine Ketones Negative (Negative) 11/16/23 20:35 Urine Blood Neg (Negative) 11/16/23 20:35 Urine Nitrate Negative (Negative) 11/16/23 20:35 Urine Bilirubin Neg (Negative) 11/16/23 20:35 Prot Sulfosalicylic Acd Negative (Negative) 11/16/23 20:35 Urine Urobilinogen Norm mg/dL (Negative) 11/16/23 20:35 Ur Leukocyte Esterase Trace (Negative) H 11/16/23 20:35 Urine RBC 0-4 /hpf (0-2) H 11/16/23 20:35 Urine WBC 5-10 /hpf (0-5) H 11/16/23 20:35 Ur Squamous Epith Cells 0-4 /hpf (0-5) H 11/16/23 20:35 Amorphous Sediment Not Reportable 11/16/23 20:35 Urine Bacteria Trace /hpf (NONE) 11/16/23 20:35 All radiology interpretation(s) finalized by discharge Discharge Plan Discharge Patient Disposition: Admitted As Inpatient Admit Provider: Torey Cortes Clinical Impression: Neutropenia with fever Condition: Stable Discharge Diet: Regular Discharge Activity: Resume usual activity and Increase activity as tolerated Coding Level of Care Code 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
[2023-11-16] MEDS: sodium chloride 0.9% 1,000 ML 999 ML IV (21:21)
[2023-11-16] MEDS: cefepime 2,000 MG in sodium chloride 0.9% (plus) 50 ML 100 MG IV (21:25)
[2023-11-16] MEDS: ibuprofen 800 mg tablet PO (21:26)
[2023-11-16 21:27] VITALS: BP 138/81; PULSE 120; RESP 20; TEMP 37.3; O2SAT 95
--- NOTE | 2023-11-16 21:41 | CTR_ITS ---
PROCEDURE INFORMATION: Exam: CT Maxillofacial Without Contrast, Sinus Exam date and time: 11/16/2023 9:51 PM Age: 53 years old Clinical indication: Other: Congestion; Additional info: Neutropenic fever, nasal congestion TECHNIQUE: Imaging protocol: CT Maxillofacial without contrast. Focus on the sinuses. Radiation optimization: All CT scans at this facility use at least one of these dose optimization techniques: automated exposure control; mA and/or kV adjustment per patient size (includes targeted exams where dose is matched to clinical indication); or iterative reconstruction. COMPARISON: No relevant prior studies available. RADIATION DOSE METRICS: Total DLP (mGy-cm): 478.98 FINDINGS: Frontal sinuses: Normal. No air-fluid levels. Ethmoid sinuses: Moderate mucosal thickening with partial opacification of the left ethmoid air cells. Sphenoid sinuses: Large fluid level compatible with sinusitis. Maxillary sinuses: Mild mucosal thickening bilaterally. No air-fluid levels. Ostiomeatal units are patent. Nasal cavity: Mild congestion of the nasal turbinates. Otherwise unremarkable Orbital cavities: Bony orbits are intact. The globes, intraconal/extraconal fat, extraocular muscles and optic nerves are grossly unremarkable. Bones/joints: Unremarkable. Soft tissues: No evidence of fluid collection or abscess. No gross evidence of inflammatory changes. CT/CT sinus wo con* [id number] IMPRESSION: 1. Sphenoethmoid sinusitis. No evidence of inflammatory changes, fluid collection or abscess.
--- NOTE | 2023-11-16 21:56 | P.HP_ITS ---
Providers/Chief Complaint 2 Admitting Physician: Torey Cortes Primary Care Provider: Jorden Casey MD Chief Complaint: Fever, Sob, has ovarian Cancer History of Present Illness Pleasant 54-year-old lady with history of ovarian cancer, chemotherapy, immunotherapy, presents to the hospital with malaise, fever, recently has been having nasal congestion and rhinorrhea, although does state that there is some rhinorrhea is likely associated with her immunotherapy as she has been told. In ER she is found to have severe neutropenia, ANC of 100. She has a left chest Port-A-Cath but has not noticed any problems with the port, no pain/tenderness, erythema, swelling or drainage. Her cancer doctor and send [place]. We discussed with them findings so far with unremarkable chest x-ray, urinalysis, blood cultures have been collected but will not be available for a while, we will also want to make sure to collect cultures from her port as well as obtain CT scan of her sinuses given her symptoms. She has received a dose of cefepime, they are okay with continuing with antibiotic. They are okay with initiating hospitalization here for further assessment management of neutropenic fever. Review of Systems 2 Const: Reports: fever(s), chills and malaise ENMT: Reports: nasal discharge and nasal congestion; Denies: throat pain Card: Denies: chest pain, edema, pre-syncope or dyspnea on exertion Resp: Denies: dyspnea, productive cough, change in phlegm color or hemoptysis GI: Denies: abdominal pain, nausea, vomiting, diarrhea, constipation, hematochezia or melena : Denies: flank pain, urinary frequency or hematuria Musc: Denies: back pain, joint swelling or joint redness Skin/Breast: Denies: rash or new lesions Neuro: Denies: headache(s) or confusion Medications/Allergies Home Medications Medication Instructions Recorded Confirmed Last Taken Type nitroglycerin 0.4 mg sublingual 0.4 mg sublingual Q5M PRN chest 05/13/20 05/08/21 Unknown Rx tablet pain #25 tabs estradiol 1 mg tablet (Estrace) 1 mg PO DAILY 3 weeks #90 tabs 12/27/20 05/08/21 05/07/21 Rx naproxen 500 mg tablet (Naprosyn) 500 mg PO BID PRN pain #20 tabs 04/08/21 05/08/21 05/03/21 Rx amitriptyline 10 mg tablet 10 mg PO DAILY 05/03/21 05/08/21 05/07/21 History lactulose 10 gram/15 mL oral 15 ml PO BID #237 mL 05/11/21 Unknown Rx solution ondansetron HCl 4 mg tablet 4 mg PO Q6H PRN nausea and 05/11/21 Unknown Rx (Zofran) vomiting #20 tabs pantoprazole 40 mg tablet,delayed 40 mg PO BID #28 tabs 05/11/21 Unknown Rx release (Protonix) Allergies Allergy/AdvReac Type Severity Reaction Status Date / Time lisinopril AdvReac cough Verified 03/25/21 07:52 PFSH Acute 2 PFSH: Surgical History Status post colonoscopy (05/05/21) S/P right oophorectomy History of total hysterectomy 2004-LAP History of delivery (1) Family History Other CAD (coronary artery disease) Diabetes Stroke Denies family history of Dementia Chronic kidney disease (CKD) Lung disease Cancer Hypertension Social History Smoking and tobacco/nicotine status: never used tobacco/nicotine Alcohol intake: never Substance/Drug Use: never Vitals/I&O/Wt Last Vital Signs Temp 99.1 F 11/16/23 21:27 Pulse 120 H 11/16/23 21:27 Resp 20 H 11/16/23 21:27 BP 138/81 11/16/23 21:27 Pulse Ox 95 11/16/23 21:27 O2 Del Method Room Air 11/16/23 21:27 11/16/23 11/16/23 11/16/23 06:59 14:59 22:59 Intake Total 532.85 / 532.85 Balance 532.85 / 532.85 Weight last 48 hrs Weight 77.111 kg Physical Exam 2 Narrative: Accompanied by her . Const: COMMON NORMALS: patient oriented x3 and alert GENERAL APPEARANCE: c ooperative ORIENTATION/CONSCIOUSNESS: Yes awake HENMT: COMMON NORMALS: oropharynx normal Neck/C-Spine: COMMON NORMALS: no JVD Chest: OTHER: L Chest port without erythema, swelling or drainage Resp: COMMON NORMALS: normal respiratory effort and clear to auscultation bilaterally AUSCULTATION: clear to auscultation bilaterally Cardio: COMMON NORMALS: no JVD, regular rhythm, S1 normal heart sound present, S2 normal heart sound present and No murmurs present (Cardio) RHYTHM: regular rhythm HEART SOUNDS: S1 normal heart sound present and S2 normal heart sound present GI: COMMON NORMALS: Normal to inspection, nondistended, normoactive bowel sounds present, Soft to palpation and non-tender PALPATION: Yes Soft to palpation Extremity: COMMON NORMALS: no joint enlargement and no pedal edema Neuro: COMMON NORMALS: patient oriented x3 and moves all extremities S ENSORIUM/ORIENTATION: Yes alert Skin: COMMON NORMALS: no rashes or lesions noted GENERAL SKIN EXAM: no rashes or lesions noted Data 11/16/23 19:30 11/16/23 19:30 Micro: Microbiology 11/16/23 19:45 Blood Culture - Preliminary Blood SPECIMEN COLLECTED 11/16/23 19:40 Blood Culture - Preliminary Blood SPECIMEN COLLECTED A&P Assessment and plan (1) Neutropenia with fever: Neutropenic fever. Severe neutropenia with ANC 100. Receiving chemotherapy, immunotherapy. Blood cultures collected, chest x-ray unremarkable, UA not suggestive of UTI, did not reflex for culture, although with a few WBC will still request for culture. She has had nasal congestion recently, will obtain CT sinuses. Reviewed vitals, CBC, CMP, procalcitonin, UA, chest x-ray, ER provider note, discussed with ER physician. Discussed with patient and . Discussed severity of condition, risk of complications, infection, possibly life-threatening sequela. Blood cultures been collected reported from periphery. Will request for culture from port. She has received cefepime, discussed with them we will continue. She was told she cannot have acetaminophen due to liver metastases and was advised to reduce NSAID use. Reverse isolation. Neutropenic precautions with diet. Plan Thrombocytopenia: Platelets 83, for now SCD for DVT prophylaxis, hold off on anticoagulation, follow platelet trend, reassess for further decline/severe thrombocytopenia. HTN: Monitor blood pressure. Cardiac diet. Alkaline phosphatase elevation: Not at moderate elevation 175. Recheck with her primary. Possibly related to the stasis. No abdominal pain or tenderness, no right upper quadrant pain. T. bili is normal. Metastatic ovarian cancer: With liver mets. Received chemotherapy, immunotherapy, her cancer doctors in [place]. She was told she cannot have acetaminophen due to liver metastases and was advised to reduce NSAID use. Requesting to confirm home medications, please review and reconcile once available. Attestations 2 Medical Necessity Statement*: Admission of over 2 midnights anticipated for assessment of management of neutropenic fever with severe neutropenia and lady with metastatic ovarian cancer. Diagnoses Neutropenia with fever D70.9; R50.81
[2023-11-16 22:57] VITALS: BMI 31.1
--- NOTE | 2023-11-16 23:23 | PC.NURSE ---
Patient stated she has not had a bowel movement in 3 days, but has presence of flatulence. No distention or tenderness. Patient also has had decreased urination due to low fluid intake.
[2023-11-16] MEDS: ondansetron 2 mg/ML SDV 2 mL 4 MG IVP (23:30)
[2023-11-17] VITALS (10 sets, daily range): BP systolic 120–145; BP diastolic 66–85; PULSE 100–123; RESP 16–19; TEMP 36.7–39.3; O2SAT 94–96
[2023-11-17] MEDS: blistex lip oint 7 gm Tube 1 APPLIC TOPICAL (03:46)
[2023-11-17] MEDS: benzonatate 100 mg Capsule 200 MG PO ×2 (03:46→23:24)
[2023-11-17 04:16] LABS: Basophils % 0.8 %; Hematocrit 33.2 % (36-47); Lymphocytes # 0.8 10^3/uL (0.8-4.8); Mean Platelet Volume 9.1 fL (7.4-10.4); Monocytes # 0.4 10^3/uL (0.2-0.9); Monocytes % 31.3 %; Neutrophils % 6.8 %; Nucleated Red Blood Cells % 0 %; Platelet Count 71 10^3/cmm (157-399); Positive M 1; Red Blood Count 3.65 10^6/uL (3.85-5.65); Red Cell Distribution Width 13.3 % (12.1-15.1); White Blood Count 1.31 10^3/uL (3.29-11.43)
[2023-11-17 04:29] LABS: Neutrophils # 0.09 10^3/uL (1.8-7.7)
[2023-11-17] MEDS: ibuprofen 200 mg Tablet PO (04:35)
[2023-11-17 04:49] LABS: Alanine Aminotransferase 31 U/L (0-33); Albumin Level 3.7 g/dL (3.5-5.2); Alkaline Phosphatase 158 U/L (35-105); Aspartate Amino Transferase 17 U/L (0-32); Blood Urea Nitrogen 11 mg/dL (6-20); Calcium 8.9 mg/dL (8.5-10.5); Carbon Dioxide 23 mmol/L (22-29); Chloride 101 mmol/L (98-107); Glomerular Filtration Rate 87.9 mL/min (90-130); Glucose 127 mg/dL (65-115); Osmolality Calculated 279 mOsm/kg (285-295); Sodium 134 mmol/L (136-145); Total Bilirubin 0.5 mg/dL (0.15-1.2); Total Protein 6.7 g/dL (6.6-8.7)
[2023-11-17] MEDS: cefepime 2,000 MG in sodium chloride 0.9% (plus) 50 ML 100 MG IV ×3 (05:48→20:10)
--- NOTE | 2023-11-17 07:20 | PC.NURSE ---
Patient and expressed concern about the care they were receiving and the plan of care. They expressed to me that they felt we were not doing anything to help Mrs. Boles. requested to speak with the physician over her care. I reached out to the attending physician to speak with them. Physician and I were at bedside to further investigate the concerns. Patient and are better understanding about the plan of care and had no other questions after speaking with physician. Plan of care ongoing.
[2023-11-17] MEDS: ondansetron 2 mg/ML SDV 2 mL 4 MG IVP (12:53)
[2023-11-17] MEDS: ibuprofen 200 mg Tablet 400 MG PO (13:45)
--- NOTE | 2023-11-17 14:09 | CTR_ITS ---
PROCEDURE INFORMATION: Exam: CT Chest Without Contrast; Diagnostic Exam date and time: 11/17/2023 2:33 PM Age: 53 years old Clinical indication: Fever; Prior surgery; Surgery date: <1 month; Surgery type: Port; Additional info: Neutropenic fever TECHNIQUE: Imaging protocol: Diagnostic computed tomography of the chest without contrast. Radiation optimization: All CT scans at this facility use at least one of these dose optimization techniques: automated exposure control; mA and/or kV adjustment per patient size (includes targeted exams where dose is matched to clinical indication); or iterative reconstruction. COMPARISON: CT angio chest w abd pel w con 04/08/2021 10:36 PM RADIATION DOSE METRICS: Total DLP (mGy-cm): 886.3 FINDINGS: Lungs: There is focal atelectasis involving the right lung base medially. Pleural spaces: Unremarkable. No pneumothorax. No pleural effusion. Heart: Unremarkable. No cardiomegaly. No pericardial effusion. Lymph nodes: There is a 2.3 cm oval epicardial lymph node anteriorly with central calcification. This lymph node has not changed over the past 3 years. Vasculature: Unremarkable. No aortic aneurysm. Bones/joints: Unremarkable. No acute fracture. Soft tissues: Unremarkable. Other findings: A left-sided VAD is in good position. PROCEDURE INFORMATION: Exam: CT Abdomen And Pelvis Without Contrast Exam date and time: 11/17/2023 2:33 PM Age: 53 years old Clinical indication: Fever; Prior surgery; Surgery date: <1 month; Surgery type: Port; Additional info: Neutropenic fever TECHNIQUE: Imaging protocol: Computed tomography of the abdomen and pelvis without contrast. Radiation optimization: All CT scans at this facility use at least one of these dose optimization techniques: automated exposure control; mA and/or kV adjustment per patient size (includes targeted exams where dose is matched to clinical indication); or iterative reconstruction. COMPARISON: CT abdomen pelvis w con* [id number] 05/08/2021 2:40 PM RADIATION DOSE METRICS: Total DLP (mGy-cm): 886.3 FINDINGS: Lungs: Lung bases are clear. No pleural effusion. Liver: Normal. No mass. Gallbladder and bile ducts: Normal. No calcified stones. No ductal dilation. Pancreas: Normal. No ductal dilation. Spleen: Normal. No splenomegaly. Adrenal glands: Normal. No mass. Kidneys and ureters: Normal. No hydronephrosis. Stomach and bowel: Unremarkable. No obstruction. No mucosal thickening. Appendix: No evidence of appendicitis. Intraperitoneal space: Unremarkable. No free air. No significant fluid collection. Vasculature: Unremarkable. No abdominal aortic aneurysm. Lymph nodes: Unremarkable. No enlarged lymph nodes. Urinary bladder: Unremarkable as visualized. Reproductive: Unremarkable as visualized. Bones/joints: Unremarkable. No acute fracture. Soft tissues: Unremarkable. CT/[place] [id number] IMPRESSION: Focal atelectasis in the right lower lobe of uncertain clinical significance Stable epicardial lymph node IMPRESSION: No acute findings.
--- NOTE | 2023-11-17 14:11 | P.PN_ITS ---
Subjective 2 Subjective: Patient presented with a fever for the last 2 days. She also been experiencing chills and rigors. She has been taking ibuprofen every 4 hours and was advised to decrease her ibuprofen intake. She says she cannot take Tylenol because she has liver metastases. He says she feels a lot better since she has been in the hospital. ANC was 100 at admission. Left Port-A-Cath is present however has not noticed any problems no pain no tenderness no erythema no swelling no drainage. She sees Dr. Soliman in [place]. She has recently received chemotherapy 10 days ago. She is sure she did not get Neulasta or Neupogen. Vitals/I&O/Wt Last Vital Signs Temp 99.3 F 11/17/23 12:00 Pulse 102 H 11/17/23 12:00 Resp 16 11/17/23 12:00 BP 144/85 11/17/23 12:00 Pulse Ox 94 11/17/23 12:00 O2 Del Method Room Air 11/17/23 12:00 11/16/23 11/17/23 11/17/23 22:59 06:59 14:59 Intake Total 532.85 / 532.85 567.15 / 1100.00 240 / 240 Balance 532.85 / 532.85 567.15 / 1100.00 240 / 240 Weight last 48 hrs Weight 83.234 kg Weight 77.111 kg Weight 77.111 kg Physical Exam 2 Narrative: Accompanied by family Const: COMMON NORMALS: patient oriented x3 and alert GENERAL APPEARANCE: c ooperative ORIENTATION/CONSCIOUSNESS: Yes awake HENMT: COMMON NORMALS: oropharynx normal Neck/C-Spine: COMMON NORMALS: no JVD Chest: OTHER: L Chest port without erythema, swelling or drainage Resp: COMMON NORMALS: normal respiratory effort and clear to auscultation bilaterally AUSCULTATION: clear to auscultation bilaterally Cardio: COMMON NORMALS: no JVD, regular rhythm, S1 normal heart sound present, S2 normal heart sound present and No murmurs present (Cardio) RHYTHM: regular rhythm HEART SOUNDS: S1 normal heart sound present and S2 normal heart sound present GI: COMMON NORMALS: Normal to inspection, nondistended, normoactive bowel sounds present, Soft to palpation and non-tender PALPATION: Yes Soft to palpation Extremity: COMMON NORMALS: no joint enlargement and no pedal edema Neuro: COMMON NORMALS: patient oriented x3 and moves all extremities S ENSORIUM/ORIENTATION: Yes alert Skin: COMMON NORMALS: no rashes or lesions noted GENERAL SKIN EXAM: no rashes or lesions noted Data 11/17/23 03:50 11/17/23 03:50 Micro: Microbiology 11/16/23 19:45 Blood Culture - Preliminary Blood SPECIMEN COLLECTED 11/16/23 19:40 Blood Culture - Preliminary Blood SPECIMEN COLLECTED A&P Assessment and plan (1) Essential hypertension: (2) Neutropenia with fever: (3) Elevated CA-125: (4) UTI (urinary tract infection): (5) Fever: (6) HTN (hypertension): (7) Pancytopenia: (8) Metastatic malignant neoplasm to ovary: Plan #Neutropenic fever #History of ovarian cancer, currently on chemotherapy with last cycle 10 days ago. #Immunocompromise #Fever, malaise, chills, rigors secondary to above #Port-A-Cath in place #UTI, #History of right oophorectomy, total hysterectomy ? Continues to be febrile. ? Blood cultures, urine culture pending ? Add sputum culture Gram stain ? Recently had a COVID test at urgent care which was negative. ? Patient on cefepime 2 g twice daily. I will add vancomycin for broad-spectrum coverage to cover for MRSA ? Check chest CT abdomen pelvis rule out other possible acute pathology or infectious source, query pyelonephritis? - Will await infectious workup - Will reach out to Dr. Soliman's office. Pt may need GCSF. -I have reached out to transfer center to talk to on-call oncologist at [facility] to discuss her case. Patient may require Neupogen or Neulasta. I will check if she got it with her chemo last week or not. Full code SCDs, no pharmacological DVT prophylaxis as patient is neutropenic. Continue neutropenic precautions Attestations 2 Medical Necessity Statement*: Admission of over 2 midnights anticipated for assessment of management of neutropenic fever with severe neutropenia and lady with metastatic ovarian cancer. Diagnoses Essential hypertension I10 Neutropenia with fever D70.9; R50.81 Elevated CA-125 R97.1 UTI (urinary tract infection) N39.0 Fever R50.9 HTN (hypertension) I10 Pancytopenia D61.818 Metastatic malignant neoplasm to ovary C79.60
[2023-11-17] MEDS: sodium chloride 0.9% 1,000 ML 100 ML IV ×2 (14:16→23:24)
[2023-11-17] MEDS: filgrastim-sndz 300 mcg/0.5 mL Syringe SUBCUT (15:06)
[2023-11-17] MEDS: vancomycin 1,250 MG/250 ML PIGGYBACK 250 MG IV (15:07)
--- NOTE | 2023-11-17 19:30 | PC.NURSE ---
Notified Dr. Oconnor for bedtime ativan 1mg for patient which is on home medication list. Dr. Oconnor gave verbal order for Ativan 1mg PO One time, PRN. Order entered in computer.
[2023-11-17] MEDS: LORazepam 1 mg Tablet PO (20:10)
[2023-11-18] VITALS (8 sets, daily range): BP systolic 135–146; BP diastolic 72–91; PULSE 78–102; RESP 16–18; TEMP 36.6–38.3; O2SAT 95–97; BMI 34.5
[2023-11-18] MEDS: ibuprofen 200 mg Tablet 400 MG PO (04:24)
[2023-11-18] MEDS: cefepime 2,000 MG in sodium chloride 0.9% (plus) 50 ML 100 MG IV ×3 (04:24→20:21)
[2023-11-18 07:23] LABS: Basophils # 0.1 10^3/uL (0.0-0.1); Basophils % 1.5 %; Eosinophils % 0.9 %; Hematocrit 29.7 % (36-47); Lymphocytes # 1.1 10^3/uL (0.8-4.8); Lymphocytes % 32.2 %; Mean Corpuscular Hemoglobin 31.5 pg (27-33); Mean Corpuscular Volume 92.5 fl (85-98); Mean Platelet Volume 9.5 fL (7.4-10.4); Monocytes # 0.6 10^3/uL (0.2-0.9); Monocytes % 19.6 %; Neutrophils # 1.46 10^3/uL (1.8-7.7); Neutrophils % 44.9 %; Nucleated Red Blood Cells % 0 %; Platelet Count 67 10^3/cmm (157-399); Red Blood Count 3.21 10^6/uL (3.85-5.65); Red Cell Distribution Width 13.7 % (12.1-15.1); White Blood Count 3.26 10^3/uL (3.29-11.43)
[2023-11-18 07:38] LABS: Alanine Aminotransferase 27 U/L (0-33); Albumin Level 3.2 g/dL (3.5-5.2); Alkaline Phosphatase 133 U/L (35-105); Anion Gap 14.8 (5-19); Aspartate Amino Transferase 18 U/L (0-32); Blood Urea Nitrogen 11 mg/dL (6-20); Calcium 8.8 mg/dL (8.5-10.5); Carbon Dioxide 19 mmol/L (22-29); Chloride 107 mmol/L (98-107); Globulin 2.8 g/dL (1.3-4.6); Glomerular Filtration Rate 87.9 mL/min (90-130); Glucose 108 mg/dL (65-115); Osmolality Calculated 284 mOsm/kg (285-295); Potassium 3.8 mmol/L (3.5-5.1); Sodium 137 mmol/L (136-145); Total Bilirubin 0.3 mg/dL (0.15-1.2)
[2023-11-18 07:41] LABS: Magnesium 1.8 mg/dL (1.7-2.3); Phosphorus 2.4 mg/dL (2.5-4.5)
[2023-11-18] MEDS: vancomycin 1,250 MG/250 ML PIGGYBACK 250 MG IV (08:39)
[2023-11-18] MEDS: sodium chloride 0.9% 1,000 ML 100 ML IV ×2 (09:57→20:04)
--- NOTE | 2023-11-18 13:17 | P.PN_ITS ---
Subjective 2 Subjective: Seen this morning. Family at bedside. Cultures negative to date so far. WBC 3.26 today, hemoglobin 10.1, platelets 67. Did have fever 101 at 4 AM. Vitals/I&O/Wt Last Vital Signs Temp 98.0 F 11/18/23 12:00 Pulse 82 11/18/23 12:00 Resp 16 11/18/23 12:00 BP 146/82 11/18/23 12:00 Pulse Ox 96 11/18/23 12:00 O2 Del Method Room Air 11/18/23 12:00 11/17/23 11/18/23 11/18/23 22:59 06:59 14:59 Intake Total 300 / 590 963.333 / 1807.706 5468 / 2210 Balance 300 / 590 963.333 / 2456.810 4130 / 2210 Weight last 48 hrs Weight 85.774 kg Weight 83.234 kg Weight 77.111 kg Weight 77.111 kg Physical Exam 2 Narrative: Accompanied by family Const: COMMON NORMALS: patient oriented x3 and alert GENERAL APPEARANCE: c ooperative ORIENTATION/CONSCIOUSNESS: Yes awake HENMT: COMMON NORMALS: oropharynx normal Neck/C-Spine: COMMON NORMALS: no JVD Chest: OTHER: L Chest port without erythema, swelling or drainage Resp: COMMON NORMALS: normal respiratory effort and clear to auscultation bilaterally AUSCULTATION: clear to auscultation bilaterally Cardio: COMMON NORMALS: no JVD, regular rhythm, S1 normal heart sound present, S2 normal heart sound present and No murmurs present (Cardio) RHYTHM: regular rhythm HEART SOUNDS: S1 normal heart sound present and S2 normal heart sound present GI: COMMON NORMALS: Normal to inspection, nondistended, normoactive bowel sounds present, Soft to palpation and non-tender PALPATION: Yes Soft to palpation Extremity: COMMON NORMALS: no joint enlargement and no pedal edema Neuro: COMMON NORMALS: patient oriented x3 and moves all extremities S ENSORIUM/ORIENTATION: Yes alert Skin: COMMON NORMALS: no rashes or lesions noted GENERAL SKIN EXAM: no rashes or lesions noted Data 11/18/23 06:31 11/18/23 06:31 Micro: Microbiology 11/16/23 20:35 Urine Culture - Final Urine,Clean Catch 11/16/23 19:40 Blood Culture - Preliminary Blood NEGATIVE TO DATE 11/16/23 19:45 Blood Culture - Preliminary Blood NEGATIVE TO DATE A&P Assessment and plan (1) Essential hypertension: (2) Neutropenia with fever: (3) Elevated CA-125: (4) UTI (urinary tract infection): (5) Fever: (6) HTN (hypertension): (7) Pancytopenia: (8) Metastatic malignant neoplasm to ovary: Plan #Neutropenic fever #History of ovarian cancer, currently on chemotherapy with last cycle 10 days ago. #Immunocompromise #Fever, malaise, chills, rigors secondary to above #Port-A-Cath in place #UTI, #History of right oophorectomy, total hysterectomy ? Continues to be febrile. ? Blood cultures, urine culture pending ? Add sputum culture Gram stain ? Recently had a COVID test at urgent care which was negative. ? Patient on cefepime 2 g twice daily. I will add vancomycin for broad-spectrum coverage to cover for MRSA - Will await infectious workup - Will reach out to Dr. Soliman's office. Pt may need GCSF. Discussed with Dr. Soliman over the phone at [facility]. He recommends the following: Neupogen 300 mg subcu daily until WBC count greater than 10,000 Transfuse platelets if platelets drop below 30,000. Will monitor CBC daily and transfuse platelets as needed. CT chest abdomen pelvis complete. No evidence of acute infection. Full code SCDs, no pharmacological DVT prophylaxis as patient is neutropenic. Continue neutropenic precautions Attestations 2 Medical Necessity Statement*: Admission of over 2 midnights anticipated for assessment of management of neutropenic fever with severe neutropenia and lady with metastatic ovarian cancer. Diagnoses Essential hypertension I10 Neutropenia with fever D70.9; R50.81 Elevated CA-125 R97.1 UTI (urinary tract infection) N39.0 Fever R50.9 HTN (hypertension) I10 Pancytopenia D61.818 Metastatic malignant neoplasm to ovary C79.60
[2023-11-18] MEDS: benzonatate 100 mg Capsule 200 MG PO ×2 (14:03→22:13)
[2023-11-18] MEDS: filgrastim-sndz 300 mcg/0.5 mL Syringe SUBCUT (14:16)
[2023-11-18] MEDS: oxymetazoline 0.05% Nasal Spray 15 mL 2 SPRAY NOSTRIL-B (17:52)
[2023-11-18] MEDS: ondansetron 2 mg/ML SDV 2 mL 4 MG IVP (20:05)
[2023-11-18] MEDS: LORazepam 1 mg Tablet PO (22:13)
[2023-11-19] VITALS: BP 139/85; PULSE 84; RESP 17; TEMP 36.9; O2SAT 96
[2023-11-19] MEDS: vancomycin 1,250 MG/250 ML PIGGYBACK 250 MG IV (02:55)
[2023-11-19 03:58] VITALS: BP 125/82; PULSE 86; RESP 17; TEMP 36.8; O2SAT 96
[2023-11-19 04:02] VITALS: BMI 34.0
[2023-11-19] MEDS: cefepime 2,000 MG in sodium chloride 0.9% (plus) 50 ML 100 MG IV (05:16)
[2023-11-19 05:51] LABS: Eosinophils # 0.1 10^3/uL (0.0-0.8); Lymphocytes # 1.6 10^3/uL (0.8-4.8); Lymphocytes % 19.4 %; Mean Corpuscular HGB Conc 33.3 g/dL (30-55); Mean Corpuscular Hemoglobin 30.4 pg (27-33); Mean Corpuscular Volume 91.2 fl (85-98); Mean Platelet Volume 9.5 fL (7.4-10.4); Monocytes % 12.7 %; Neutrophils # 4.98 10^3/uL (1.8-7.7); Neutrophils % 61.4 %; Nucleated Red Blood Cells % 0.4 %; Platelet Count 73 10^3/cmm (157-399); Red Blood Count 3.29 10^6/uL (3.85-5.65); Red Cell Distribution Width 13.7 % (12.1-15.1); White Blood Count 8.11 10^3/uL (3.29-11.43)
[2023-11-19] MEDS: sodium chloride 0.9% 1,000 ML 100 ML IV (06:03)
[2023-11-19] MEDS: benzonatate 100 mg Capsule 200 MG PO (06:04)
[2023-11-19 06:08] LABS: Alanine Aminotransferase 38 U/L (0-33); Albumin Level 3.2 g/dL (3.5-5.2); Alkaline Phosphatase 136 U/L (35-105); Anion Gap 14.6 (5-19); Aspartate Amino Transferase 25 U/L (0-32); Blood Urea Nitrogen 7 mg/dL (6-20); Calcium 8.6 mg/dL (8.5-10.5); Carbon Dioxide 20 mmol/L (22-29); Chloride 109 mmol/L (98-107); Globulin 2.7 g/dL (1.3-4.6); Glomerular Filtration Rate 87.9 mL/min (90-130); Glucose 101 mg/dL (65-115); Osmolality Calculated 288 mOsm/kg (285-295); Potassium 3.6 mmol/L (3.5-5.1); Sodium 140 mmol/L (136-145); Total Bilirubin 0.3 mg/dL (0.15-1.2); Total Protein 5.9 g/dL (6.6-8.7)
[2023-11-19 06:31] VITALS: PULSE 85
[2023-11-19 08:00] VITALS: BP 150/87; PULSE 85; RESP 16; TEMP 36.8; O2SAT 97
--- NOTE | 2023-11-19 10:40 | P.DS_ITS ---
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 In ER she is found to have severe neutropenia, ANC of 100. She has a left chest Port-A-Cath but has not noticed any problems with the port, no pain/tenderness, erythema, swelling or drainage. Her cancer doctor and [facility]. We discussed with them findings so far with unremarkable chest x-ray, urinalysis, blood cultures have been collected b ut will not be available for a while, we will also want to make sure to collect cultures from her port as well as obtain CT scan of her sinuses given her symptoms. She has received a dose of cefepime, they are okay with continuing with antibiotic. They are okay with initiating hospitalization here for further assessment management of neutropenic fever. Hospital Course Hospital Course Patient was admitted to the hospital further evaluation and management of neutropenic precautions in setting of recent chemotherapy. He was she was started on broad-spectrum antibiotics. Her blood cultures during hospitalization remained negative. She required 1 dose of Neupogen. She responded well to the treatment and has been afebrile for last 36 hours with resolution of neutropenia. She has been discharged in hemodynamically stable condition on oral Augmentin and Levaquin for next 5 days with advised to follow- up with a primary care provider and outpatient oncologist on set appointments. Physical Exam Narrative: Accompanied by family Const: COMMON NORMALS: patient oriented x3 and alert GENERAL APPEARANCE: cooperative ORIENTATION/CONSCIOUSNESS: Yes awake HENMT: COMMON NORMALS: oropharynx normal Neck/C-Spine: COMMON NORMALS: no JVD Chest: OTHER: L Chest port without erythema, swelling or drainage Resp: COMMON NORMALS: normal respiratory effort and clear to auscultation bilaterally AUSCULTATION: clear to auscultation bilaterally Cardio: COMMON NORMALS: no JVD, regular rhythm, S1 normal heart sound present, S2 normal heart sound present and No murmurs present (Cardio) RHYTHM: regular rhythm HEART SOUNDS: S1 normal heart sound present and S2 normal heart sound present GI: COMMON NORMALS: Normal to inspection, nondistended, normoactive bowel sounds present, Soft to palpation and non-tender PALPATION: Yes Soft to palpation Extremity: COMMON NORMALS: no joint enlargement and no pedal edema Neuro: COMMON NORMALS: patient oriented x3 and moves all extremities SENSORIUM/ORIENTATION: Yes alert Skin: COMMON NORMALS: no rashes or lesions noted GENERAL SKIN EXAM: no rashes or lesions noted Discharge Data Studies Completed and Pending Completed Studies During Hospitalization Category Date Time Status CT chest abdomen pelvis [[place] [id number] Cat Scan 11/17/23 14:09 Completed ] Routine CT sinus wo con* [id number] Stat Cat Scan 11/16/23 21:41 Completed XR chest 1V portable [id number] Stat Exams 11/16/23 18:46 Completed Pending at discharge Category Date Time Status B12 [Vitamin B12] Routine Lab 11/19/23 05:13 Received Bacterial Antigen Stat Lab 11/19/23 10:02 Ordered Blood Culture Stat Lab 11/16/23 19:45 Results Complete Blood Count w/Auto AM LABS Lab 11/20/23 04:00 Ordered Comprehensive Metabolic Panel AM LABS Lab 11/20/23 04:00 Ordered Folate Level AM LABS Lab 11/20/23 04:00 Ordered Hemoglobin A1C AM LABS Lab 11/20/23 04:00 Ordered Lipid Profile w/VLDL Routine Lab 11/20/23 04:00 Ordered MAG [Magnesium] AM LABS Lab 11/20/23 04:00 Ordered MAG [Magnesium] AM LABS Lab 11/21/23 04:00 Ordered MAG [Magnesium] AM LABS Lab 11/22/23 04:00 Ordered MRSA [Methicillin Resistant S.aureu] Routine Lab 11/19/23 10:32 Received Sputum Culture and Gram Stain Stat Lab 11/18/23 06:30 Results TIBC [Total Iron Binding Capacity] Routine Lab 11/19/23 05:13 Received Thyroid Stimulating Hormone Stat Lab 11/19/23 05:13 Received Vancomycin Trough Timed Lab 11/19/23 19:30 Ordered Radiology Impressions Chest X-Ray 11/16/23 18:46 IMPRESSION: 1. No acute cardiopulmonary abnormality. Sinuses CT 11/16/23 21:41 IMPRESSION: 1. Sphenoethmoid sinusitis. No evidence of inflammatory changes, fluid collection or abscess. Chest/Abdomen/Pelvis CT 11/17/23 14:09 IMPRESSION: Focal atelectasis in the right lower lobe of uncertain clinical significance Stable epicardial lymph node IMPRESSION: No acute findings. Microbiology 11/18/23 06:30 Sputum - Expectorated Sputum Gram Stain - Final 11/16/23 20:35 Urine,Clean Catch Urine Culture - Final 11/16/23 19:40 Blood Blood Culture - Preliminary NEGATIVE TO DATE 11/16/23 19:45 Blood Blood Culture - Preliminary NEGATIVE TO DATE Laboratory Results WBC 8.11 10^3/uL (3.29-11.43) 11/19/23 05:13 RBC 3.29 10^6/uL (3.85-5.65) L 11/19/23 05:13 Hgb 10.00 g/dL (11.27-16.99) L 11/19/23 05:13 Hct 30.0 % (36-47) L 11/19/23 05:13 MCV 91.2 fl (85-98) 11/19/23 05:13 MCH 30.4 pg (27-33) 11/19/23 05:13 MCHC 33.3 g/dL (30-55) 11/19/23 05:13 RDW 13.7 % (12.1-15.1) 11/19/23 05:13 Plt Count 73 10^3/cmm (157-399) L 11/19/23 05:13 MPV 9.5 fL (7.4-10.4) 11/19/23 05:13 Neut % (Auto) 61.4 % 11/19/23 05:13 Lymph % (Auto) 19.4 % 11/19/23 05:13 [place] % (Auto) 12.7 % 11/19/23 05:13 Eos % (Auto) 1.0 % 11/19/23 05:13 Baso % (Auto) 0.0 % 11/19/23 05:13 Neut # (Auto) 4.98 10^3/uL (1.8-7.7) 11/19/23 05:13 Lymph # (Auto) 1.6 10^3/uL (0.8-4.8) 11/19/23 05:13 [place] # (Auto) 1.0 10^3/uL (0.2-0.9) H 11/19/23 05:13 Eos # (Auto) 0.1 10^3/uL (0.0-0.8) 11/19/23 05:13 Baso # (Auto) 0.0 10^3/uL (0.0-0.1) 11/19/23 05:13 Nucleated RBC % (auto) 0.4 % 11/19/23 05:13 Nucleated RBCs # 0.0 /100WBC 11/19/23 05:13 Sodium 140 mmol/L (136-145) 11/19/23 05:13 Potassium 3.6 mmol/L (3.5-5.1) 11/19/23 05:13 Chloride 109 mmol/L (98-107) H 11/19/23 05:13 Carbon Dioxide 20 mmol/L (22-29) L 11/19/23 05:13 Anion Gap 14.6 (5-19) 11/19/23 05:13 BUN 7 mg/dL (6-20) 11/19/23 05:13 Creatinine 0.7 mg/dL (0.5-0.9) 11/19/23 05:13 GFR Calculation 87.9 mL/min (90-130) L 11/19/23 05:13 Glucose 101 mg/dL (65-115) 11/19/23 05:13 Calculated Osmolality 288 mOsm/kg (285-295) 11/19/23 05:13 Lactic Acid 1.3 mmol/L (0.5-2.2) 11/16/23 19:40 Calcium 8.6 mg/dL (8.5-10.5) 11/19/23 05:13 Phosphorus 2.4 mg/dL (2.5-4.5) L 11/18/23 06:31 Magnesium 1.8 mg/dL (1.7-2.3) 11/18/23 06:31 Total Bilirubin 0.3 mg/dL (0.15-1.2) 11/19/23 05:13 AST 25 U/L (0-32) 11/19/23 05:13 ALT 38 U/L (0-33) H 11/19/23 05:13 Alkaline Phosphatase 136 U/L (35-105) H 11/19/23 05:13 Total Protein 5.9 g/dL (6.6-8.7) L 11/19/23 05:13 Albumin 3.2 g/dL (3.5-5.2) L 11/19/23 05:13 Globulin 2.7 g/dL (1.3-4.6) 11/19/23 05:13 Procalcitonin 0.37 ng/mL (0-0.5) 11/16/23 19:30 Urine Color Yellow (Yellow) 11/16/23 20:35 Urine Appearance Clear (CLEAR) 11/16/23 20:35 Urine pH 8 (5-7) H 11/16/23 20:35 Ur Specific [place] 1.015 (1.005-1.030) 11/16/23 20:35 Urine Protein Trace (Negative) 11/16/23 20:35 Urine Glucose (UA) Norm (Normal) 11/16/23 20:35 Urine Ketones Negative (Negative) 11/16/23 20:35 Urine Blood Neg (Negative) 11/16/23 20:35 Urine Nitrate Negative (Negative) 11/16/23 20:35 Urine Bilirubin Neg (Negative) 11/16/23 20:35 Prot Sulfosalicylic Acd Negative (Negative) 11/16/23 20:35 Urine Urobilinogen Norm mg/dL (Negative) 11/16/23 20:35 Ur Leukocyte Esterase Trace (Negative) H 11/16/23 20:35 Urine RBC 0-4 /hpf (0-2) H 11/16/23 20:35 Urine WBC 5-10 /hpf (0-5) H 11/16/23 20:35 Ur Squamous Epith Cells 0-4 /hpf (0-5) H 11/16/23 20:35 Amorphous Sediment Not Reportable 11/16/23 20:35 Urine Bacteria Trace /hpf (NONE) 11/16/23 20:35 Vitals Last Vital Signs Temp 98.2 F 11/19/23 08:00 Pulse 85 11/19/23 08:00 Resp 16 11/19/23 08:00 BP 150/87 11/19/23 08:00 Pulse Ox 97 11/19/23 08:00 O2 Del Method Room Air 11/19/23 08:00 Discharge Plan Discharge Patient Disposition: Home Condition: Stable Prescriptions: New amoxicillin-pot clavulanate 875-125 mg tablet 1 tab PO BID Qty: 10 0RF levofloxacin 500 mg tablet 500 mg PO Q24H 5 Days Qty: 5 0RF Flonase Allergy Relief 50 mcg/actuation spray,suspension 1 spray intranasal BID PRN (Reason: nasal congestion) Qty: 16 0RF Rx Instructions: administer into each nostril Continued ondansetron HCl [Zofran] 4 mg tablet 4 mg PO Q6H PRN (Reason: nausea and vomiting) Qty: 20 0RF prochlorperazine maleate 10 mg tablet 10 mg PO Q6H Ativan 1 mg tablet 1 mg PO BEDTIME Discharge Orders: Discharge Order (Routine); Ordered 11/19/23 Ordered By: Rufus Roper Referrals: Jorden Casey MD [Primary Care Provider] - 11/26/23 9:00 am Discharge Diet: Regular Discharge Activity: Resume usual activity and Increase activity as tolerated Patient Instructions: Amoxicillin/Clavulanate Potassium (By mouth) (Augmentin, Augmentin..., Levofloxacin (By mouth), Fluticasone (Into the nose), Neutropenia (DC), Opioid Safety Activity Restrictions/Additional Instructions: Please follow-up. With your outpatient oncologist onsite appointment. Augmentin and Levaquin are the antibiotic which you should take for next 5 days. Continue with neutropenic precautions after each chemotherapy cycle. Discharge Attestations Time Spent in Discharge Care*: greater than 30 min Specific Discharge Activities: educating patient, educating and/or supporting family/caregiver, discussing with pcp/other providers, discussing with caseworker protective services/social workers/dc planners, documenting/other paperwork and evaluating patient/reviewing data Status at Discharge: Cognitive status at discharge: cognitively intact , Behavioral status at discharge: cooperative , Functional status at discharge: independent ambulation , Overall status at discharge: patient is back to baseline Quality Metrics Clinical Quality Measures [ No reported AMI, CVA or VTE this stay] Coding Level of Care Code 10836 Total time (in minutes) for Discharge: 60 Diagnoses Essential hypertension I10 Neutropenia with fever D70.9; R50.81 Elevated CA-125 R97.1 UTI (urinary tract infection) N39.0 Fever R50.9 HTN (hypertension) I10 Pancytopenia D61.818 Metastatic malignant neoplasm to ovary C79.60
[2023-11-19 11:19] LABS: Iron 67 ug/dL (37-145); Percent Saturation 33.8 % (20-50); Total Iron Binding Capacity 198 mcg/dl; Unsaturated Iron Binding 131 ug/dL (112-347)
[2023-11-19 11:36] VITALS: BP 147/83; PULSE 86; RESP 18; TEMP 36.5; O2SAT 96
[2023-11-19 12:47] VITALS: BP 147/83; PULSE 86; RESP 18; TEMP 36.5; O2SAT 96
[2023-11-19 13:55] LABS: Thyroid Stimulating Hormone 2.08 uIU/mL (0.27-4.20)
[2023-11-19 17:42] LABS: Vitamin B12 416 pg/mL (232-1245)
[2023-11-20 14:08] LABS: Methicillin-Resist S.aureu PCR NOT DETECTED (NOT DETECTED)
== END 2023-11-19 12:48 | disposition home or self-care (01) | DRG 809 ==
LOC: ER 21:17 → MEDSURG 21:44
PROVIDERS: Internal Medicine; Admitting Provider Internal Medicine; Emergency Provider Internal Medicine; PCP Family Medicine; Visit Provider Student in an Organized Health Care Education/Training Program
DX: D70.1 Agranulocytosis secondary to cancer chemotherapy (principal); C56.9 Malignant neoplasm of unspecified ovary; C78.7 Secondary malignant neoplasm of liver and intrahepatic bile duct; N39.0 Urinary tract infection, site not specified; D84.821 Immunodeficiency due to drugs; T45.1X5A Adverse effect of antineoplastic and immunosuppressive drugs, initial encounter; D69.6 Thrombocytopenia, unspecified; I10 Essential (primary) hypertension; R74.8 Abnormal levels of other serum enzymes; Z79.60 Long term (current) use of unspecified immunomodulators and immunosuppressants; Z95.828 Presence of other vascular implants and grafts; Z90.710 Acquired absence of both cervix and uterus; Z90.721 Acquired absence of ovaries, unilateral
CPT/HCPCS: 36415; 36591; 70486; 71045; 71250; 74176; 80053; 81001; 82607; 83540; 83550; 83605; 83735; 84100; 84145; 84443; 85025; 87040; 87070; 87086; 87205; 87641; 96365; 96372; 99285; J0692; J2405; J3370; J7030; Q5101

== ENCOUNTER 2023-12-26 13:14 | Inpatient (IN) | payer OTHER, SELFPAY ==
[2023-12-26] VITALS (9 sets, daily range): BP systolic 121–149; BP diastolic 61–85; PULSE 87–131; RESP 16–20; TEMP 36.8–37.2; O2SAT 93–98; BMI 30.7
--- NOTE | 2023-12-26 14:16 | XR_ITS ---
WS: [id number] Exam: XR chest 1V portable [id number] Date/Time of Exam: 12/26/2023 2:16 PM Reason For Exam: dyspnea/cough Comparison 11/16/2023. The lungs are clear and fully inflated. Normal cardiomediastinal silhouette. No pleural effusions. LE FT subclavian port extends into the RIGHT atrium. Bony structures are intact. IMPRESSION: 1. No acute cardiopulmonary finding.
[2023-12-26 14:22] LABS: Hematocrit 29.7 % (36-47); Mean Corpuscular Hemoglobin 32.2 pg (27-33); Mean Corpuscular Volume 94.6 fl (85-98); Mean Platelet Volume 11.7 fL (7.4-10.4); Platelet Count 61 10^3/cmm (157-399); Red Blood Count 3.14 10^6/uL (3.85-5.65); Red Cell Distribution Width 16.3 % (12.1-15.1)
--- NOTE | 2023-12-26 14:29 | ED_ITS ---
HPI - Fever 2 General: Chief Complaint: Fever Stated Complaint: fever, sore throat, weakness, blood in stool Time Seen by Provider: 12/26/23 13:30 Source: patient Mode of arrival: ambulatory History of Present Illness: 53-year-old female with a history of ova emma CA presents emergency room with complaints of fever sore throat weakness blood in the stool. Blood began last night she had her last chemotherapy treatment 1 week ago was curtailed because she had a reaction to it she only got a few minutes. She did have some leukocytopenia recently and was given Neulasta which she finished overnight. She presents here with tachycardia and shortness of breath. MD elicited complaint: fever Onset (ago): day(s) Exacerbating factors: nothing Relieving factors: nothing Associated symptoms: Reports nausea and vomiting; Deny abdominal pain, flank pain, chills, chest pain, confusion, cough, diarrhea, dysuria, extremity pain, headache(s), myalgias, nasal congestion, night sweats, rash, rhinorrhea, short of breath, sinus pain, stiffness, sore throat or weight loss Review of Systems 2 Const: Denies: fever(s), chills or night sweats ENMT: Denies: nasal congestion or sinus pain Card: Denies: chest pain Resp: Denies: dyspnea GI: Reports: nausea and vomiting; Denies: abdominal pain or diarrhea : Denies: flank pain, dysuria, urinary frequency or urinary urgency Musc: Denies: neck pain, back pain or extremity pain Skin/Breast: Denies: rash Neuro: Denies: headache(s) or confusion PFSH ED 2 PFSH: Medical History HTN (hypertension) Elevated CA-125 Essential hypertension Surgical History Status post colonoscopy (05/05/21) S/P right oophorectomy History of total hysterectomy 2004-LAP History of delivery (1) Family History Other CAD (coronary artery disease) Diabetes Stroke Denies family history of Dementia Chronic kidney disease (CKD) Lung disease Cancer Hypertension Social History (Reviewed 12/26/23 @ 14:29 by FABIANA Hill Smoking and tobacco/nicotine status: never used tobacco/nicotine Alcohol intake: never Substance/Drug Use: never Physical Exam 2 Const: GENERAL APPEARANCE: cooperative and comfortable O RIENTATION/CONSCIOUSNESS: Yes awake, Yes oriented to person, Yes oriented to place and Yes oriented to time HENMT: COMMON NORMALS: normocephalic, atraumatic and hearing grossly normal bilaterally HEAD & SCALP: normocephalic and atraumatic Resp: COMMON NORMALS: normal respiratory effort, No retractions, No use of accessory muscles and clear to auscultation bilaterally AUSCULTATION: clear to auscultation bilaterally Cardio: COMMON NORMALS: No murmurs present (Cardio) RATE: tachycardic GI: COMMON NORMALS: Soft to palpation and No hepatosplenomegaly present A USCULTATION: Yes normoactive bowel sounds PALPATION: Yes Soft to palpation, No Tenderness to palpation present (GI), No Guarding due to palpation present (GI) and Yes No hepatosplenomegaly present Extremity: COMMON NORMALS: normal to inspection, capillary refill normal, no clubbing, cyanosis or edema, no calf tenderness and no pedal edema Neuro: SENSORIUM/ORIENTATION: Yes oriented to person, Yes oriented to place and Yes oriented to time Skin: COMMON NORMALS: no rashes or lesions noted GENERAL SKIN EXAM: no rashes or lesions noted Course 2 Vital Signs: Vital signs: Vital Signs Temperature 98.1 F 12/29/23 08:00 Pulse Rate 92 12/29/23 08:00 Respiratory Rate 16 12/29/23 08:00 Blood Pressure 120/76 12/29/23 08:00 Pulse Oximetry 97 12/29/23 08:00 Oxygen Delivery Me thod Room Air 12/29/23 08:00 MDM - Fever Medical Decision Making Chest x-ray was negative however the CT of the abdomen showed right lower lobe pneumonia with sepsis the remainder of the CT was negative. Will admit for IV antibiotics pulmonary toilet. Patient has pancytopenia likely due to her recent chemotherapy. UA shows cystitis. Discussed with hospitalist orders written. Cultures and antibiotics initiated. Medical Records I reviewed the patient's medical records. Lab Data I reviewed the patient's lab results. 12/29/23 02:26 12/29/23 02:26 Radiology Impressions Abdomen/Pelvis CT 12/26/23 15:20 IMPRESSION: 1. Right lower lobe pneumonia. 2. No evidence of acute abnormality in the abdomen or pelvis. Laboratory Results WBC 10.70 10^3/uL (3.29-11.43) 12/26/23 13:56 RBC 3.14 10^6/uL (3.85-5.65) L 12/26/23 13:56 Hgb 10.10 g/dL (11.27-16.99) L 12/26/23 13:56 Hct 29.7 % (36-47) L 12/26/23 13:56 MCV 94.6 fl (85-98) 12/26/23 13:56 MCH 32.2 pg (27-33) 12/26/23 13:56 MCHC 34.0 g/dL (30-55) 12/26/23 13:56 RDW 16.3 % (12.1-15.1) H 12/26/23 13:56 Plt Count 61 10^3/cmm (157-399) L 12/26/23 13:56 MPV 11.7 fL (7.4-10.4) H 12/26/23 13:56 Lymph % (Auto) Not Reportable 12/26/23 13:56 [place] % (Auto) Not Reportable 12/26/23 13:56 Lymph # (Auto) Not Reportable 12/26/23 13:56 [place] # (Auto) Not Reportable 12/26/23 13:56 Total Counted 100 (0-100) 12/26/23 13:56 Atypical Lymphs % 2.0 % (0-5) 12/26/23 13:56 Absolute Neutrophils 4.9 10^3/cmm (1.4-6.5) 12/26/23 13:56 Segmented Neutrophils 43 % 12/26/23 13:56 Abs Segm Neuts (Man) 4.6 10/cmm (1.6-7.1) 12/26/23 13:56 Band Neutrophils 3.0 % 12/26/23 13:56 Abs Band Neuts (Man) 0.3 10^3/cmm (0.0-1.2) 12/26/23 13:56 Absolute Lymphocytes 4.3 10^3/cmm (1.2-3.4) H 12/26/23 13:56 Lymphocytes (Manual) 38 % 12/26/23 13:56 Monocytes (Manual) 9.0 % 12/26/23 13:56 Absolute Monocytes 1.0 10^3/cmm (0.1-0.6) H 12/26/23 13:56 Eosinophils (Manual) 1 % 12/26/23 13:56 Absolute Eosinophils 0.1 10^3/cmm (0.0-0.7) 12/26/23 13:56 Basophils (Manual) 1.0 % 12/26/23 13:56 Absolute Basophils 0.1 10^3/cmm (0.0-0.2) 12/26/23 13:56 Metamyelocytes 3.0 % 12/26/23 13:56 Nucleated RBCs 3.0 /100WBC (0-1) H 12/26/23 13:56 Platelet Estimate Decreased (Normal) L 12/26/23 13:56 Polychromasia 1+ H 12/26/23 13:56 Anisocytosis 2+ H 12/26/23 13:56 Sodium 136 mmol/L (136-145) 12/26/23 13:56 Potassium 4.0 mmol/L (3.5-5.1) 12/26/23 13:56 Chloride 101 mmol/L (98-107) 12/26/23 13:56 Carbon Dioxide 22 mmol/L (22-29) 12/26/23 13:56 Anion Gap 17.0 (5-19) 12/26/23 13:56 BUN 17 mg/dL (6-20) 12/26/23 13:56 Creatinine 0.8 mg/dL (0.5-0.9) 12/26/23 13:56 GFR Calculation 75.3 mL/min (90-130) L 12/26/23 13:56 Glucose 94 mg/dL (65-115) 12/26/23 13:56 Calculated Osmolality 283 mOsm/kg (285-295) L 12/26/23 13:56 Lactic Acid 2.3 mmol/L (0.5-2.2) H 12/26/23 13:56 Lactic Acid (Sepsis) 2.0 mmol/L (0.5-2.2) 12/26/23 17:20 Calcium 9.4 mg/dL (8.5-10.5) 12/26/23 13:56 Total Bilirubin 0.3 mg/dL (0.15-1.2) 12/26/23 13:56 AST 25 U/L (0-32) 12/26/23 13:56 ALT 53 U/L (0-33) H 12/26/23 13:56 Alkaline Phosphatase 170 U/L (35-105) H 12/26/23 13:56 Creatine Kinase 28 U/L (26-192) 12/26/23 13:56 Total Protein 6.6 g/dL (6.6-8.7) 12/26/23 13:56 Albumin 4.1 g/dL (3.5-5.2) 12/26/23 13:56 Globulin 2.5 g/dL (1.3-4.6) 12/26/23 13:56 Procalcitonin 0.15 ng/mL (0-0.5) 12/26/23 13:56 Urine Color Light yellow (Yellow) 12/26/23 15:49 Urine Appearance Clear (CLEAR) 12/26/23 15:49 Urine pH 5 (5-7) 12/26/23 15:49 Ur Specific [place] 1.005 (1.005-1.030) 12/26/23 15:49 Urine Protein Neg (Negative) 12/26/23 15:49 Urine Glucose (UA) Norm (Normal) 12/26/23 15:49 Urine Ketones Negative (Negative) 12/26/23 15:49 Urine Blood Neg (Negative) 12/26/23 15:49 Urine Nitrate Negative (Negative) 12/26/23 15:49 Urine Bilirubin Neg (Negative) 12/26/23 15:49 Urine Urobilinogen Norm mg/dL (Negative) 12/26/23 15:49 Ur Leukocyte Esterase Negative (Negative) 12/26/23 15:49 All radiology interpretation(s) finalized by discharge Discharge Plan Discharge Patient Disposition: Admitted As Inpatient Admit Provider: Kristy Oconnor Clinical Impression: Community acquired pneumonia, Pancytopenia, Metastatic malignant neoplasm to ovary, Cystitis Condition: Stable Discharge Diet: As Directed and Regular Discharge Activity: Resume usual activity Coding Level of Care Code ED Environmental Health Officer for Terri Bradford
[2023-12-26 14:34] LABS: Alanine Aminotransferase 53 U/L (0-33); Albumin Level 4.1 g/dL (3.5-5.2); Alkaline Phosphatase 170 U/L (35-105); Aspartate Amino Transferase 25 U/L (0-32); Blood Urea Nitrogen 17 mg/dL (6-20); Calcium 9.4 mg/dL (8.5-10.5); Carbon Dioxide 22 mmol/L (22-29); Chloride 101 mmol/L (98-107); Creatine Phosphokinase 28 U/L (26-192); Globulin 2.5 g/dL (1.3-4.6); Glomerular Filtration Rate 75.3 mL/min (90-130); Glucose 94 mg/dL (65-115); Lactic Sepsis W/Reflex 2.3 mmol/L (0.5-2.2); Osmolality Calculated 283 mOsm/kg (285-295); Sodium 136 mmol/L (136-145); Total Bilirubin 0.3 mg/dL (0.15-1.2); Total Protein 6.6 g/dL (6.6-8.7)
[2023-12-26] MEDS: sodium chloride 0.9% 1,000 ML 999 ML IV ×2 (14:45→15:40)
[2023-12-26 14:59] LABS: Slide Review Slide Review Perform
[2023-12-26 15:00] LABS: Absolute Eosinophils 0.1 10^3/cmm (0.0-0.7); Band Neutrophils Absolute 0.3 10^3/cmm (0.0-1.2); Basophils Absolute 0.1 10^3/cmm (0.0-0.2); Eosinophils 1 %; Total Cells Counted 100 (0-100)
[2023-12-26 15:01] LABS: Absolute Neutrophil 4.9 10^3/cmm (1.4-6.5); Absolute Segmented Neutrophil 4.6 10/cmm (1.6-7.1); Anisocytosis 2+; Lymphocytes 38 %; Lymphocytes Absolute 4.3 10^3/cmm (1.2-3.4); Platelet Estimate Decreased (Normal); Polychromasia 1+; Segmented Neutrophils 43 %
--- NOTE | 2023-12-26 15:20 | CTR_ITS ---
PROCEDURE INFORMATION: Exam: CT Abdomen And Pelvis With Contrast Exam date and time: 12/26/2023 3:29 PM Age: 53 years old Clinical indication: Abdominal pain; Other: Low abd pain, fever, blood int stool TECHNIQUE: Imaging protocol: Computed tomography of the abdomen and pelvis with contrast. Radiation optimization: All CT scans at this facility use at least one of these dose optimization techniques: automated exposure control; mA and/or kV adjustment per patient size (includes targeted exams where dose is matched to clinical indication); or iterative reconstruction. Contrast material: OMNI 350; Contrast volume: 100 ml; Contrast route: INTRAVENOUS (IV); COMPARISON: [place] [id number] 11/17/2023 2:33 PM RADIATION DOSE METRICS: Total DLP (mGy-cm): 710.47 FINDINGS: Lungs: Right lower lobe airspace opacities suggestive of pneumonia. Diaphragm: No evidence of diaphragmatic defect. Liver: Hepatic steatosis. No evidence of focal hepatic lesion. Gallbladder and bile ducts: Unremarkable. No intra-hepatic or extra-hepatic biliary dilatation. Pancreas: Unremarkable. Spleen: Unremarkable. Adrenal glands: Unremarkable. Kidneys and ureters: No renal parenchymal abnormality. No hydronephrosis or ureteral stone. Stomach and bowel: No evidence of bowel obstruction or perienteric inflammatory changes. Appendix: Status post appendectomy. There is postsurgical change of the terminal ileum. Intraperitoneal space: No evidence of free air or fluid collection. Vasculature: No aneurysmal dilatation or dissection of the abdominal aorta. The celiac trunk, SMA and WAN are grossly patent. No evidence of IVC thrombus. The portal vein, SMV and splenic veins are grossly patent. Lymph nodes: No adenopathy. Urinary bladder: Grossly unremarkable. Reproductive: Status post hysterectomy. Bones/joints: No evidence of acute fracture or aggressive osseous lesion. Soft tissues: No evidence of fluid collection or hematoma in the superficial soft tissues. CT/CT abdomen pelvis w con* [id number] IMPRESSION: 1. Right lower lobe pneumonia. 2. No evidence of acute abnormality in the abdomen or pelvis.
[2023-12-26] MEDS: iohexol 350 mg/mL 500 mL Btl (per mL) IV (15:29)
[2023-12-26 16:00] LABS: Reflex Lactate Order REFLEX LACTIC ORDERD
[2023-12-26 16:11] LABS: Add Urine Microscopic? NO; Charge for UA Resulting for Rev
[2023-12-26 16:36] LABS: Bilirubin Urine Neg (Negative); Blood Urine Neg (Negative); Glucose Urine UA Norm (Normal); Ketones Urine Negative (Negative); Leukocyte Esterase Urine Negative (Negative); Nitrate Urine Negative (Negative); Protein Urine Neg (Negative); Specific Gravity, Urine 1.005 (1.005-1.030); Urine Appearance Clear (CLEAR); Urine Color Light yellow (Yellow); Urobilinogen Urine Norm (Negative); pH Urine 5 (5-7)
[2023-12-26] MEDS: cefTRIAXone 1,000 MG in sodium chloride 0.9% (plus) 50 ML 100 MG IV (17:23)
--- NOTE | 2023-12-26 17:26 | P.HP_ITS ---
Providers/Chief Complaint 2 Primary Care Provider: Jorden Casey MD Chief Complaint: fever, sore throat, weakness, blood in stool History of Present Illness Radha Boles is a 53 year old female who presented to the hospital with complaint of fever and shortness of breath. She says she been having a lot of wheezing and coughing for which she has been using albuterol which is helping. Also has bloody sputum which is intermittent. Had 1 episode of bloody diarrhea and does have history of hemorrhoids however they have not really bled recently. He has had other bowel movements after that that hematochezia but her stool has been cleared thereafter. She says that she took ibuprofen 400 around 1230 today for her fever. Temp was 100.7. Had chemo last week on Sunday. Was given Neulasta patch which was removed after 24 hours. She says she could not tolerate the carboplatin and had tightness in chest and throat closing up for which treatment was aborted and she was given steroids and a breathing treatment. Denies nausea vomiting, abdominal pain, chest pain at this time. ED course: On arrival patient tachycardic, saturating 97% on room air, 134/84. Chest x-ray shows right middle lobe pneumonia. Labs indicate 3% bands, increased absolute lymphocytes, increased absolute monocytes. Lactic acid initially 2.3. Creatinine 0.8. Abdomen pelvis CT also done which reveals right lower lobe pneumonia. Medications/Allergies Home Medications Medication Instructions Recorded Confirmed Last Taken Type lorazepam 1 mg tablet (Ativan) 1 mg PO BEDTIME 11/16/23 12/26/23 12/25/23 History albuterol sulfate 90 mcg/actuation 2 puff inhalation Q4H PRN 12/26/23 12/26/23 Unknown History aerosol inhaler Shortness Of Breath Or Wheezing levofloxacin 500 mg tablet 500 mg PO DAILY 12/26/23 12/26/23 Unknown History loratadine 10 mg tablet 10 mg PO DAILY 12/26/23 12/26/23 12/26/23 History ondansetron 4 mg disintegrating 4 mg PO Q6H PRN Nausea And Vomiting 12/26/23 12/26/23 12/26/23 History tablet Allergies Allergy/AdvReac Type Severity Reaction Status Date / Time lisinopril AdvReac cough Verified 03/25/21 07:52 PFSH Acute 2 PFSH: Medical History HTN (hypertension) Elevated CA-125 Essential hypertension Surgical History Status post colonoscopy (05/05/21) S/P right oophorectomy History of total hysterectomy 2005-LAP History of delivery (1) Family History Other CAD (coronary artery disease) Diabetes Stroke Denies family history of Dementia Chronic kidney disease (CKD) Lung disease Cancer Hypertension Social History Smoking and tobacco/nicotine status: never used tobacco/nicotine Alcohol intake: never Substance/Drug Use: never Vitals/I&O/Wt Last Vital Signs Temp 98.9 F 12/26/23 13:19 Pulse 131 H 12/26/23 13:19 Resp 20 H 12/26/23 13:19 BP 134/84 12/26/23 13:19 Pulse Ox 97 12/26/23 13:19 O2 Del Method Room Air 12/26/23 13:19 12/26/23 12/26/23 12/26/23 06:59 14:59 22:59 Intake Total 1999 Balance 1999 Weight last 48 hrs Weight 76.204 kg Physical Exam 2 Narrative: Accompanied by family Const: COMMON NORMALS: patient oriented x3 and alert GENERAL APPEARANCE: c ooperative ORIENTATION/CONSCIOUSNESS: Yes awake HENMT: COMMON NORMALS: oropharynx normal Neck/C-Spine: COMMON NORMALS: no JVD Chest: OTHER: L Chest port without erythema, swelling or drainage Resp: COMMON NORMALS: normal respiratory effort and clear to auscultation bilaterally AUSCULTATION: clear to auscultation bilaterally Cardio: COMMON NORMALS: no JVD, regular rhythm, S1 normal heart sound present, S2 normal heart sound present and No murmurs present (Cardio) RHYTHM: regular rhythm HEART SOUNDS: S1 normal heart sound present and S2 normal heart sound present GI: COMMON NORMALS: Normal to inspection, nondistended, normoactive bowel sounds present, Soft to palpation and non-tender PALPATION: Yes Soft to palpation Extremity: COMMON NORMALS: no joint enlargement and no pedal edema Neuro: COMMON NORMALS: patient oriented x3 and moves all extremities S ENSORIUM/ORIENTATION: Yes alert Skin: COMMON NORMALS: no rashes or lesions noted GENERAL SKIN EXAM: no rashes or lesions noted Data 12/27/23 04:48 12/27/23 04:48 Micro: Microbiology 12/26/23 14:54 Blood Culture - Preliminary Blood SPECIMEN COLLECTED 12/26/23 14:51 Blood Culture - Preliminary Blood SPECIMEN COLLECTED A&P Assessment and plan (1) Essential hypertension: (2) Neutropenia with fever: (3) Elevated CA-125: (4) UTI (urinary tract infection): (5) Fever: (6) HTN (hypertension): (7) Pancytopenia: (8) Metastatic malignant neoplasm to ovary: Plan #Sepsis secondary to right lower lobe pneumonia, criteria met on admission with lactic acid elevation, tachycardia, fever #History of ovarian cancer, currently on chemotherapy with last cycle 7 days ago. #Immunocompromise #Fever, malaise, secondary to above #Port-A-Cath in place #UTI, #History of right oophorectomy, total hysterectomy #Intolerance of carboplatin recently #Thrombocytopenia, most likely due to recent chemotherapy ? Blood cultures, urine culture pending ? Sputum culture Gram stain ? Check respiratory viral panel ? Continue on Zosyn and vancomycin IV ?Transfuse platelets if platelets drop below 30,000. - Will monitor CBC daily and transfuse platelets as needed. ? Patient did have Neulasta after her most recent chemotherapy - CT chest abdomen pelvis complete. No evidence of acute infection. - CT chest pressure right lower lobe pneumonia. Full code SCDs, no pharmacological DVT prophylaxis Attestations 2 Medical Necessity Statement*: Admission of over 2 midnights anticipated for management of right lower lobe pneumonia in the setting of immunocompromise status with recent chemotherapy. Diagnoses Essential hypertension I10 Neutropenia with fever D70.9; R50.81 Elevated CA-125 R97.1 UTI (urinary tract infection) N39.0 Fever R50.9 HTN (hypertension) I10 Pancytopenia D61.818 Metastatic malignant neoplasm to ovary C79.60
[2023-12-26] MEDS: azithromycin 500 MG in sodium chloride 0.9% 250 ML 250 MG IV (17:41)
[2023-12-26 18:33] LABS: Procalcitonin 0.15 ng/mL (0-0.5)
[2023-12-26] MEDS: ondansetron 2 mg/ML SDV 2 mL 4 MG IVP ×2 (18:59→21:47)
[2023-12-26] MEDS: vancomycin 1,250 MG/250 ML PIGGYBACK 250 MG IV (20:31)
[2023-12-26] MEDS: sodium chloride 0.9% 1,000 ML 75 ML IV (20:34)
[2023-12-26] MEDS: LORazepam 1 mg Tablet PO (20:34)
[2023-12-26] MEDS: piperacillin-tazobactam 3.375 GM in sodium chloride 0.9% (plus) 50 ML IV (21:35)
[2023-12-27] VITALS (16 sets, daily range): BP systolic 101–139; BP diastolic 62–81; PULSE 65–114; RESP 16–20; TEMP 36.8–37.2; O2SAT 96–98; BMI 30.7
[2023-12-27 00:03] LABS: Adenovirus Not Detected (NOT DETECT); Chlamydia Pneumoniae Not Detected (NOT DETECT); Coronavirus 229E,HKU1,NL63,OC4 Not Detected (NOT DETECT); Human Metapneumovirus Not Detected (NOT DETECT); Human Rhinovirus/Enterovirus Not Detected (NOT DETECT); Influenza A Not Detected (NOT DETECT); Influenza A H1 Not Detected (NOT DETECT); Influenza A H1-2009 Not Detected (NOT DETECT); Influenza A H3 Not Detected (NOT DETECT); Influenza B Not Detected (NOT DETECT); Mycoplasma Pneumoniae Not Detected (NOT DETECT); Parainfluenza Virus Type 1 Not Detected (NOT DETECT); Parainfluenza Virus Type 2 Not Detected (NOT DETECT); Parainfluenza Virus Type 3 Not Detected (NOT DETECT); Parainfluenza Virus Type 4 Not Detected (NOT DETECT); Respiratory Syncytial Virus A Not Detected (NOT DETECT); Respiratory Syncytial Virus B Not Detected (NOT DETECT); SARS-COV-2 Not Detected (NOT DETECT)
[2023-12-27] MEDS: ipratropium-albuterol 3 mL Neb INHALATION (00:19)
[2023-12-27] MEDS: piperacillin-tazobactam 3.375 GM in sodium chloride 0.9% (plus) 50 ML IV ×3 (03:59→20:07)
[2023-12-27 05:01] LABS: Basophils # 0.1 10^3/uL (0.0-0.1); Basophils % 0.9 %; Eosinophils # 0.1 10^3/uL (0.0-0.8); Eosinophils % 0.9 %; Lymphocytes # 2.3 10^3/uL (0.8-4.8); Lymphocytes % 22.1 %; Mean Corpuscular HGB Conc 32.9 g/dL (30-55); Mean Corpuscular Hemoglobin 32.4 pg (27-33); Mean Corpuscular Volume 98.4 fl (85-98); Mean Platelet Volume 10.6 fL (7.4-10.4); Monocytes # 1.2 10^3/uL (0.2-0.9); Monocytes % 10.9 %; Neutrophils # 5.95 10^3/uL (1.8-7.7); Neutrophils % 56.4 %; Nucleated Red Blood Cells # 0.2 /100WBC; Nucleated Red Blood Cells % 1.8 %; Platelet Count 60 10^3/cmm (157-399); Red Blood Count 2.44 10^6/uL (3.85-5.65); Red Cell Distribution Width 17.1 % (12.1-15.1); White Blood Count 10.54 10^3/uL (3.29-11.43)
[2023-12-27] MEDS: ondansetron 2 mg/ML SDV 2 mL 4 MG IVP ×2 (05:01→13:31)
[2023-12-27 05:18] LABS: Alanine Aminotransferase 45 U/L (0-33); Alkaline Phosphatase 136 U/L (35-105); Anion Gap 12.7 (5-19); Aspartate Amino Transferase 23 U/L (0-32); Blood Urea Nitrogen 9 mg/dL (6-20); Calcium 8.3 mg/dL (8.5-10.5); Carbon Dioxide 22 mmol/L (22-29); Chloride 107 mmol/L (98-107); Creatinine Clr Calc Pharmacy 69.8844; Globulin 2.1 g/dL (1.3-4.6); Glomerular Filtration Rate 65.8 mL/min (90-130); Glucose 101 mg/dL (65-115); Magnesium 1.3 mg/dL (1.7-2.3); Osmolality Calculated 285 mOsm/kg (285-295); Phosphorus 3.4 mg/dL (2.5-4.5); Potassium 3.7 mmol/L (3.5-5.1); Sodium 138 mmol/L (136-145); Total Bilirubin 0.3 mg/dL (0.15-1.2); Total Protein 5.1 g/dL (6.6-8.7)
[2023-12-27 05:51] LABS: Slide Review Slide Review Perform
[2023-12-27] MEDS: loratadine 10 mg Tablet PO (08:41)
[2023-12-27] MEDS: sodium chloride 0.9% 1,000 ML 75 ML IV ×2 (08:42→20:40)
[2023-12-27] MEDS: metoclopramide 10 mg Tablet 5 MG PO ×2 (12:16→20:07)
[2023-12-27] MEDS: vancomycin 1,250 MG/250 ML PIGGYBACK 250 MG IV (12:18)
--- NOTE | 2023-12-27 12:47 | P.PN_ITS ---
Subjective 2 Subjective: Hemoglobin 7.9, platelets 60. Afebrile overnight. Vitals/I&O/Wt Last Vital Signs Temp 98.2 F 12/27/23 10:49 Pulse 101 H 12/27/23 10:49 Resp 17 12/27/23 10:49 BP 130/78 12/27/23 10:49 Pulse Ox 98 12/27/23 10:49 O2 Del Method Room Air 12/27/23 00:19 12/26/23 12/27/23 12/27/23 22:59 06:59 14:59 Intake Total 2800 / 2800 300 / 3100 1200 / 1200 Balance 2800 / 2800 300 / 3100 1200 / 1200 Weight last 48 hrs Weight 76.204 kg Weight 76.204 kg Weight 76.204 kg Physical Exam 2 Narrative: Accompanied by family Const: COMMON NORMALS: patient oriented x3 and alert GENERAL APPEARANCE: c ooperative ORIENTATION/CONSCIOUSNESS: Yes awake HENMT: COMMON NORMALS: oropharynx normal Neck/C-Spine: COMMON NORMALS: no JVD Chest: OTHER: L Chest port without erythema, swelling or drainage Resp: COMMON NORMALS: normal respiratory effort and clear to auscultation bilaterally AUSCULTATION: clear to auscultation bilaterally Cardio: COMMON NORMALS: no JVD, regular rhythm, S1 normal heart sound present, S2 normal heart sound present and No murmurs present (Cardio) RHYTHM: regular rhythm HEART SOUNDS: S1 normal heart sound present and S2 normal heart sound present GI: COMMON NORMALS: Normal to inspection, nondistended, normoactive bowel sounds present, Soft to palpation and non-tender PALPATION: Yes Soft to palpation Extremity: COMMON NORMALS: no joint enlargement and no pedal edema Neuro: COMMON NORMALS: patient oriented x3 and moves all extremities S ENSORIUM/ORIENTATION: Yes alert Skin: COMMON NORMALS: no rashes or lesions noted GENERAL SKIN EXAM: no rashes or lesions noted Data 12/27/23 04:48 12/27/23 04:48 Micro: Microbiology 12/27/23 04:30 Gram Stain - Final Sputum - Expectorated Sputum 12/26/23 14:54 Blood Culture - Preliminary Blood SPECIMEN COLLECTED 12/26/23 14:51 Blood Culture - Preliminary Blood SPECIMEN COLLECTED A&P Assessment and plan (1) Essential hypertension: (2) Neutropenia with fever: (3) Elevated CA-125: (4) UTI (urinary tract infection): (5) Fever: (6) HTN (hypertension): (7) Pancytopenia: (8) Metastatic malignant neoplasm to ovary: Plan #Sepsis secondary to right lower lobe pneumonia, criteria met on admission with lactic acid elevation, tachycardia, fever #History of ovarian cancer, currently on chemotherapy with last cycle 7 days ago. #Immunocompromise #Fever, malaise, secondary to above #Port-A-Cath in place #UTI, #History of right oophorectomy, total hysterectomy #Intolerance of carboplatin recently #Thrombocytopenia, most likely due to recent chemotherapy #Anemia ? Blood cultures, urine culture pending ? Sputum culture Gram stain - pending ? Check respiratory viral panel - neg ? Continue on Zosyn and vancomycin IV ?Transfuse platelets if platelets drop below 30,000. - Will monitor CBC daily and transfuse platelets as needed. ? Patient did have Neulasta after her most recent chemotherapy - CT chest abdomen pelvis complete. No evidence of acute infection. - CT chest shows right lower lobe pneumonia. -Hemoglobin 7.9 this morning. ? Will reach out to Dr. Soliman's office. Full code SCDs, no pharmacological DVT prophylaxis Attestations 2 Medical Necessity Statement*: Admission of over 2 midnights anticipated for management of right lower lobe pneumonia in the setting of immunocompromise status with recent chemotherapy. Diagnoses Essential hypertension I10 Neutropenia with fever D70.9; R50.81 Elevated CA-125 R97.1 UTI (urinary tract infection) N39.0 Fever R50.9 HTN (hypertension) I10 Pancytopenia D61.818 Metastatic malignant neoplasm to ovary C79.60
[2023-12-27] MEDS: LORazepam 1 mg Tablet PO (20:07)
[2023-12-28] VITALS (11 sets, daily range): BP systolic 112–139; BP diastolic 62–83; PULSE 90–107; RESP 15–18; TEMP 36.6–37.2; O2SAT 96–97
[2023-12-28] MEDS: piperacillin-tazobactam 3.375 GM in sodium chloride 0.9% (plus) 50 ML IV ×3 (03:28→20:28)
[2023-12-28] MEDS: ondansetron 2 mg/ML SDV 2 mL 4 MG IVP ×3 (05:37→20:37)
[2023-12-28] MEDS: vancomycin 1,250 MG/250 ML PIGGYBACK 250 MG IV (05:37)
[2023-12-28 05:56] LABS: Basophils % 0.2 %; Eosinophils # 0.2 10^3/uL (0.0-0.8); Eosinophils % 1.3 %; Hematocrit 31.8 % (36-47); Lymphocytes # 2.8 10^3/uL (0.8-4.8); Lymphocytes % 15.8 %; Mean Corpuscular HGB Conc 32.4 g/dL (30-55); Mean Corpuscular Hemoglobin 30.5 pg (27-33); Mean Corpuscular Volume 94.1 fl (85-98); Mean Platelet Volume 10.2 fL (7.4-10.4); Monocytes # 1.2 10^3/uL (0.2-0.9); Monocytes % 7.1 %; Nucleated Red Blood Cells # 0.6 /100WBC; Nucleated Red Blood Cells % 3.3 %; Platelet Count 79 10^3/cmm (157-399); Red Blood Count 3.38 10^6/uL (3.85-5.65); Red Cell Distribution Width 20.6 % (12.1-15.1)
[2023-12-28 06:23] LABS: Anion Gap 15.9 (5-19); Blood Urea Nitrogen 7 mg/dL (6-20); Calcium 8.8 mg/dL (8.5-10.5); Carbon Dioxide 21 mmol/L (22-29); Chloride 111 mmol/L (98-107); Creatinine Clr Calc Pharmacy 92.8131; Glomerular Filtration Rate 87.9 mL/min (90-130); Glucose 113 mg/dL (65-115); Osmolality Calculated 297 mOsm/kg (285-295); Potassium 3.9 mmol/L (3.5-5.1); Sodium 144 mmol/L (136-145)
[2023-12-28 06:33] LABS: Slide Review Slide Review Perform
[2023-12-28] MEDS: loratadine 10 mg Tablet PO (08:17)
--- NOTE | 2023-12-28 09:10 | PC.CHAP ---
Pastoral Care Encounter/Spiritual Assessment Type of Contact [] Declined desizing machine back tender visit [] Patient/Family/Request visit [] Outpatient visit [] Follow-up visit [] Physician referral [] Code/Alert [] Routine visit [] Staff referral [] Actively dying [] Patient sleeping [] Family support [] [] Out of room [] Palliative care [] [] Receiving care in room [] Pre-surgical visit [] Trauma [] Long length of stay [] ICU visit [x] Other:Contact precautions. No visit Relational/Emotional Strength [] Patient feels connected with others/family/visitors/staff [] Distress [] Loneliness/isolation [] Abandonment Spirituality of Patient [] Person of Annetta [] Attends [employer] of their Annetta [] Believes in Prayer [] Reads Bible or Baptism materials [] There are Spiritual issues to be addressed Clinical Dental Technician Interventions [] Prayer [] Active listening [] Non-anxious presence [] Spiritual/emotional support [] Crisis/trauma care [] Spiritual counseling [] Bereavement support [] Provided bereavement packet [] Provided Bible/devotional materials [] Provided toy/stuffed animal, coloring book to patient or family member [] Provided Communion [] Anointing/[place] [] Salvation [] Completed spiritual assessment [] Other: Impact on Illness or Injury [] Angry [] Fearful [] Anxious [] Often cries [] Exhaustion [] Unable to work [] Unable to attend episcopal [] Unable to walk/stand [] Unable to read [] Unable to drive [] Unable to eat/drink [] Unable to sleep [] Unable to be with family [] Patient intubated [] Other: Summary Time spent with patient
--- NOTE | 2023-12-28 12:37 | P.PN_ITS ---
Subjective 2 Subjective: Seen this morning. White count 17,000. ? Patient did demonstrate a mild episode of aspiration yesterday during swallow evaluation ? Discussed with patient regarding aspiration risk and thickened liquids being recommended. She states she will try and take them. ? I have a suspicion she may have aspirated again. ? Hemoglobin 9 range this morning. She is status post 1 unit packed RBC yesterday. ? Discussed with Dr. Soliman's office. ? Platelets 71. ? Sputum culture Gram stain pending at this time. ? at bedside Subjectively patient says she feels better. Vitals/I&O/Wt Last Vital Signs Temp 97.9 F 12/28/23 08:00 Pulse 100 12/28/23 08:00 Resp 16 12/28/23 08:00 BP 139/80 12/28/23 08:00 Pulse Ox 97 12/28/23 08:00 O2 Del Method Room Air 12/28/23 04:00 12/27/23 12/28/23 12/28/23 22:59 06:59 14:59 Intake Total 1060.0 / 2510.0 400 / 2910.0 490 / 490 Output Total 0 / 0 Balance 1060.0 / 2510.0 400 / 2910.0 490 / 490 Weight last 48 hrs Weight 81.193 kg Weight 76.204 kg Weight 76.204 kg Weight 76.204 kg Physical Exam 2 Narrative: Accompanied by family Const: COMMON NORMALS: patient oriented x3 and alert GENERAL APPEARANCE: c ooperative ORIENTATION/CONSCIOUSNESS: Yes awake HENMT: COMMON NORMALS: oropharynx normal Neck/C-Spine: COMMON NORMALS: no JVD Chest: OTHER: L Chest port without erythema, swelling or drainage Resp: COMMON NORMALS: normal respiratory effort and clear to auscultation bilaterally AUSCULTATION: clear to auscultation bilaterally Cardio: COMMON NORMALS: no JVD, regular rhythm, S1 normal heart sound present, S2 normal heart sound present and No murmurs present (Cardio) RHYTHM: regular rhythm HEART SOUNDS: S1 normal heart sound present and S2 normal heart sound present GI: COMMON NORMALS: Normal to inspection, nondistended, normoactive bowel sounds present, Soft to palpation and non-tender PALPATION: Yes Soft to palpation Extremity: COMMON NORMALS: no joint enlargement and no pedal edema Neuro: COMMON NORMALS: patient oriented x3 and moves all extremities S ENSORIUM/ORIENTATION: Yes alert Skin: COMMON NORMALS: no rashes or lesions noted GENERAL SKIN EXAM: no rashes or lesions noted Data 12/28/23 05:33 12/28/23 05:33 Micro: Microbiology 12/27/23 04:30 Gram Stain - Final Sputum - Expectorated Sputum Sputum Culture - Preliminary 12/26/23 14:54 Blood Culture - Preliminary Blood NEGATIVE TO DATE 12/26/23 14:51 Blood Culture - Preliminary Blood NEGATIVE TO DATE A&P Assessment and plan (1) Essential hypertension: (2) Neutropenia with fever: (3) Elevated CA-125: (4) UTI (urinary tract infection): (5) Fever: (6) HTN (hypertension): (7) Pancytopenia: (8) Metastatic malignant neoplasm to ovary: Plan #Sepsis secondary to right lower lobe pneumonia, criteria met on admission with lactic acid elevation, tachycardia, fever #History of ovarian cancer, currently on chemotherapy with last cycle 7 days ago. #Immunocompromise #Fever, malaise, secondary to above #Port-A-Cath in place #UTI, #History of right oophorectomy, total hysterectomy #Intolerance of carboplatin recently #Thrombocytopenia, most likely due to recent chemotherapy #Anemia ? Blood cultures, urine culture pending ? Sputum culture Gram stain - pending ? Check respiratory viral panel - neg ? Continue on Zosyn and vancomycin IV ?Transfuse platelets if platelets drop below 30,000. - Will monitor CBC daily and transfuse platelets as needed. ? Patient did have Neulasta after her most recent chemotherapy - CT chest abdomen pelvis complete. No evidence of acute infection. - CT chest shows right lower lobe pneumonia. Hemoglobin stable today. ? White count went up to 17,000 this morning. Suspect aspiration ? Repeat chest x-ray today. Adjust diet to reflect thickened liquids and soft bite-size food. Full code SCDs, no pharmacological DVT prophylaxis Attestations 2 Medical Necessity Statement*: Possibly discharge patient tomorrow if white count trending down. Diagnoses Essential hypertension I10 Neutropenia with fever D70.9; R50.81 Elevated CA-125 R97.1 UTI (urinary tract infection) N39.0 Fever R50.9 HTN (hypertension) I10 Pancytopenia D61.818 Metastatic malignant neoplasm to ovary C79.60
--- NOTE | 2023-12-28 15:40 | XR_ITS ---
WS: [id number] Exam: XR chest 1V portable [id number] Date/Time of Exam: 12/28/2023 3:41 PM Reason For Exam: aspiration? Comparison 12/26/2023. Plaque atelectasis in the RIGHT base. No consolidated infiltrates are seen. No pneumothorax. Normal c ardiomediastinal silhouette. LEFT subclavian port ends in the RIGHT atrium. Heart size is normal. The mediastinum is normal in contour. Unremarkable bony elements. IMPRESSION: 1. RIGHT basal plaque atelectasis. No acute finding.
[2023-12-28] MEDS: metoclopramide 10 mg Tablet 5 MG PO (16:41)
[2023-12-28] MEDS: LORazepam 1 mg Tablet PO (20:28)
[2023-12-29 00:03] LABS: Vancomycin Trough 4.6 ug/mL (10-15)
[2023-12-29] MEDS: vancomycin 1,500 MG/300 ML PIGGYBACK 200 MG IV (00:46)
[2023-12-29 02:51] LABS: Basophils # 0.1 10^3/uL (0.0-0.1); Basophils % 0.7 %; Eosinophils # 0.2 10^3/uL (0.0-0.8); Eosinophils % 1.3 %; Hematocrit 29.1 % (36-47); Lymphocytes # 2.2 10^3/uL (0.8-4.8); Lymphocytes % 18.1 %; Mean Corpuscular Volume 93.9 fl (85-98); Mean Platelet Volume 10.4 fL (7.4-10.4); Monocytes # 0.8 10^3/uL (0.2-0.9); Monocytes % 6.7 %; Neutrophils # 7.34 10^3/uL (1.8-7.7); Neutrophils % 59.8 %; Nucleated Red Blood Cells # 0.3 /100WBC; Nucleated Red Blood Cells % 2.2 %; Platelet Count 80 10^3/cmm (157-399); Red Cell Distribution Width 21.1 % (12.1-15.1); White Blood Count 12.26 10^3/uL (3.29-11.43)
[2023-12-29 03:09] LABS: Anion Gap 15.9 (5-19); Blood Urea Nitrogen 12 mg/dL (6-20); Carbon Dioxide 21 mmol/L (22-29); Chloride 108 mmol/L (98-107); Creatinine Clr Calc Pharmacy 92.8131; Glomerular Filtration Rate 87.9 mL/min (90-130); Glucose 108 mg/dL (65-115); Osmolality Calculated 292 mOsm/kg (285-295); Potassium 3.9 mmol/L (3.5-5.1); Sodium 141 mmol/L (136-145)
[2023-12-29 03:58] VITALS: BP 115/74; PULSE 92; RESP 18; TEMP 36.7; O2SAT 96
[2023-12-29] MEDS: piperacillin-tazobactam 3.375 GM in sodium chloride 0.9% (plus) 50 ML IV (04:51)
[2023-12-29 08:00] VITALS: BP 120/76; PULSE 92; RESP 16; TEMP 36.7; O2SAT 97
[2023-12-29] MEDS: loratadine 10 mg Tablet PO (08:39)
--- NOTE | 2023-12-29 09:52 | P.DS_ITS ---
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 Recent chemo was last week. Patient did receive Neulasta. There was suspicion of patient aspirating with initial swallow evaluation however repeat evaluation did not indicate that. Patient was recommended thickened liquids however apparently they were never given to her unsure why. However she is doing well with thin liquids. I have advised her to be careful with eating and use soft bite-size food and thicken her liquids if she feels she is having trouble swallowing. She did receive 1 unit packed RBC due to hemoglobin being 7.2. Discussed with Dr. Soliman's office. Hemoglobin threshold is to transfuse less than 8. Patient will be discharged home in stable condition at this time with 6 more days of Augmentin to complete total 10-day regimen. Patient to follow-up with oncology at discharge. Urine Gram stain culture inconclusive. Blood cultures negative to date. Urine culture negative to date. Physical Exam Narrative: Accompanied by family Const: COMMON NORMALS: patient oriented x3 and alert GENERAL APPEARANCE: cooperative ORIENTATION/CONSCIOUSNESS: Yes awake HENMT: COMMON NORMALS: oropharynx normal Neck/C-Spine: COMMON NORMALS: no JVD Chest: OTHER: L Chest port without erythema, swelling or drainage Resp: COMMON NORMALS: normal respiratory effort and clear to auscultation bilaterally AUSCULTATION: clear to auscultation bilaterally Cardio: COMMON NORMALS: no JVD, regular rhythm, S1 normal heart sound present, S2 normal heart sound present and No murmurs present (Cardio) RHYTHM: regular rhythm HEART SOUNDS: S1 normal heart sound present and S2 normal heart sound present GI: COMMON NORMALS: Normal to inspection, nondistended, normoactive bowel sounds present, Soft to palpation and non-tender PALPATION: Yes Soft to palpation Extremity: COMMON NORMALS: no joint enlargement and no pedal edema Neuro: COMMON NORMALS: patient oriented x3 and moves all extremities SENSORIUM/ORIENTATION: Yes alert Skin: COMMON NORMALS: no rashes or lesions noted GENERAL SKIN EXAM: no rashes or lesions noted Discharge Data Studies Completed and Pending Completed Studies During Hospitalization Category Date Time Status CT abdomen pelvis w con* [id number] Stat Cat Scan 12/26/23 15:20 Completed XR chest 1V portable [id number] Routine Exams 12/28/23 15:40 Completed XR chest 1V portable [id number] Stat Exams 12/26/23 14:16 Completed Pending at discharge Category Date Time Status Blood Culture Stat Lab 12/26/23 14:54 Results Sputum Culture and Gram Stain Stat Lab 12/26/23 16:03 Results Radiology Impressions Abdomen/Pelvis CT 12/26/23 15:20 IMPRESSION: 1. Right lower lobe pneumonia. 2. No evidence of acute abnormality in the abdomen or pelvis. Laboratory Results WBC 12.26 10^3/uL (3.29-11.43) H 12/29/23 02:26 RBC 3.10 10^6/uL (3.85-5.65) L 12/29/23 02:26 Hgb 9.60 g/dL (11.27-16.99) L 12/29/23 02:26 Hct 29.1 % (36-47) L 12/29/23 02:26 MCV 93.9 fl (85-98) 12/29/23 02:26 MCH 31.0 pg (27-33) 12/29/23 02:26 MCHC 33.0 g/dL (30-55) 12/29/23 02:26 RDW 21.1 % (12.1-15.1) H 12/29/23 02:26 Plt Count 80 10^3/cmm (157-399) L 12/29/23 02:26 MPV 10.4 fL (7.4-10.4) 12/29/23 02:26 Neut % (Auto) 59.8 % 12/29/23 02:26 Lymph % (Auto) 18.1 % 12/29/23 02:26 [place] % (Auto) 6.7 % 12/29/23 02:26 Eos % (Auto) 1.3 % 12/29/23 02:26 Baso % (Auto) 0.7 % 12/29/23 02: Neut # (Auto) 7.34 10^3/uL (1.8-7.7) 12/29/23 02:26 Lymph # (Auto) 2.2 10^3/uL (0.8-4.8) 12/29/23 02:26 [place] # (Auto) 0.8 10^3/uL (0.2-0.9) 12/29/23 02: Eos # (Auto) 0.2 10^3/uL (0.0-0.8) 12/29/23 02: Baso # (Auto) 0.1 10^3/uL (0.0-0.1) 12/29/23 02: Nucleated RBC % (auto) 2.2 % 12/29/23 02:26 Total Counted 100 (0-100) 12/26/23 13:56 Atypical Lymphs % 2.0 % (0-5) 12/26/23 13:56 Absolute Neutrophils 4.9 10^3/cmm (1.4-6.5) 12/26/23 13:56 Segmented Neutrophils 43 % 12/26/23 13:56 Abs Segm Neuts (Man) 4.6 10/cmm (1.6-7.1) 12/26/23 13:56 Band Neutrophils 3.0 % 12/26/23 13:56 Abs Band Neuts (Man) 0.3 10^3/cmm (0.0-1.2) 12/26/23 13:56 Absolute Lymphocytes 4.3 10^3/cmm (1.2-3.4) H 12/26/23 13:56 Lymphocytes (Manual) 38 % 12/26/23 13:56 Monocytes (Manual) 9.0 % 12/26/23 13:56 Absolute Monocytes 1.0 10^3/cmm (0.1-0.6) H 12/26/23 13:56 Eosinophils (Manual) 1 % 12/26/23 13:56 Absolute Eosinophils 0.1 10^3/cmm (0.0-0.7) 12/26/23 13:56 Basophils (Manual) 1.0 % 12/26/23 13:56 Absolute Basophils 0.1 10^3/cmm (0.0-0.2) 12/26/23 13:56 Metamyelocytes 3.0 % 12/26/23 13:56 Nucleated RBCs 3.0 /100WBC (0-1) H 12/26/23 13:56 Nucleated RBCs # 0.3 /100WBC 12/29/23 02:26 Platelet Estimate Decreased (Normal) L 12/26/23 13:56 Polychromasia 1+ H 12/26/23 13:56 Anisocytosis 2+ H 12/26/23 13:56 Sodium 141 mmol/L (136-145) 12/29/23 02:26 Potassium 3.9 mmol/L (3.5-5.1) 12/29/23 02:26 Chloride 108 mmol/L (98-107) H 12/29/23 02:26 Carbon Dioxide 21 mmol/L (22-29) L 12/29/23 02:26 Anion Gap 15.9 (5-19) 12/29/23 02:26 BUN 12 mg/dL (6-20) 12/29/23 02:26 Creatinine 0.7 mg/dL (0.5-0.9) 12/29/23 02:26 GFR Calculation 87.9 mL/min (90-130) L 12/29/23 02:26 Glucose 108 mg/dL (65-115) 12/29/23 02:26 Calculated Osmolality 292 mOsm/kg (285-295) 12/29/23 02:26 Lactic Acid 2.3 mmol/L (0.5-2.2) H 12/26/23 13:56 Lactic Acid (Sepsis) 2.0 mmol/L (0.5-2.2) 12/26/23 17:20 Calcium 9.0 mg/dL (8.5-10.5) 12/29/23 02:26 Phosphorus 3.4 mg/dL (2.5-4.5) 12/27/23 04:48 Magnesium 1.3 mg/dL (1.7-2.3) L 12/27/23 04:48 Total Bilirubin 0.3 mg/dL (0.15-1.2) 12/27/23 04:48 AST 23 U/L (0-32) 12/27/23 04:48 ALT 45 U/L (0-33) H 12/27/23 04:48 Alkaline Phosphatase 136 U/L (35-105) H 12/27/23 04:48 Creatine Kinase 28 U/L (26-192) 12/26/23 13:56 Total Protein 5.1 g/dL (6.6-8.7) L D 12/27/23 04:48 Albumin 3.0 g/dL (3.5-5.2) L 12/27/23 04:48 Globulin 2.1 g/dL (1.3-4.6) 12/27/23 04:48 Procalcitonin 0.15 ng/mL (0-0.5) 12/26/23 13:56 Urine Color Light yellow (Yellow) 12/26/23 15:49 Urine Appearance Clear (CLEAR) 12/26/23 15:49 Urine pH 5 (5-7) 12/26/23 15:49 Ur Specific [place] 1.005 (1.005-1.030) 12/26/23 15:49 Urine Protein Neg (Negative) 12/26/23 15:49 Urine Glucose (UA) Norm (Normal) 12/26/23 15:49 Urine Ketones Negative (Negative) 12/26/23 15:49 Urine Blood Neg (Negative) 12/26/23 15:49 Urine Nitrate Negative (Negative) 12/26/23 15:49 Urine Bilirubin Neg (Negative) 12/26/23 15:49 Urine Urobilinogen Norm mg/dL (Negative) 12/26/23 15:49 Ur Leukocyte Esterase Negative (Negative) 12/26/23 15:49 Vancomycin Trough 4.6 ug/mL (10-15) L 12/28/23 23:18 Adenovirus (PCR) Not detected (NOT DETECT) 12/26/23 20:00 C. pneumoniae DNA (PCR) Not detected (NOT DETECT) 12/26/23 20:00 Coronavirus 229E (PCR) Not detected (NOT DETECT) 12/26/23 20:00 Human Metapneumovir PCR Not detected (NOT DETECT) 12/26/23 20:00 Influenza A (H1) PCR Not detected (NOT DETECT) 12/26/23 20:00 Influ A (H1/09) PCR Not detected (NOT DETECT) 12/26/23 20:00 Influenza A (H3) PCR Not detected (NOT DETECT) 12/26/23 20:00 Influenza Type A (PCR) Not detected (NOT DETECT) 12/26/23 20:00 Influenza Type B (PCR) Not detected (NOT DETECT) 12/26/23 20:00 M. pneumoniae (PCR) Not detected (NOT DETECT) 12/26/23 20:00 Parainfluenza 1 (PCR) Not detected (NOT DETECT) 12/26/23 20:00 Parainfluenza 2 (PCR) Not detected (NOT DETECT) 12/26/23 20:00 Parainfluenza 3 (PCR) Not detected (NOT DETECT) 12/26/23 20:00 Parainfluenza 4 (PCR) Not detected (NOT DETECT) 12/26/23 20:00 RSV Type A (PCR) Not detected (NOT DETECT) 12/26/23 20:00 RSV Type B (PCR) Not detected (NOT DETECT) 12/26/23 20:00 Entero/Rhino (PCR) Not detected (NOT DETECT) 12/26/23 20:00 SARS-CoV-2 (PCR) Not detected (NOT DETECT) 12/26/23 20:00 Blood Type B Positive 12/27/23 18:42 Rho(D) Type Rh positive 12/27/23 18:42 Antibody Screen Negative 12/27/23 18:42 Crossmatch See Detail 12/27/23 18:42 Vitals Last Vital Signs Temp 98.1 F 12/29/23 08:00 Pulse 92 12/29/23 08:00 Resp 16 12/29/23 08:00 BP 120/76 12/29/23 08:00 Pulse Ox 97 12/29/23 08:00 O2 Del Method Room Air 12/29/23 08:00 Discharge Plan Discharge Patient Disposition: Home Condition: Stable Prescriptions: New amoxicillin-pot clavulanate 875-125 mg tablet 1 tab PO BID 6 Days Qty: 12 0RF Continued albuterol sulfate 90 mcg/actuation HFA aerosol inhaler 2 puff INHALATION Q4H PRN (Reason: Shortness Of Breath Or Wheezing) ondansetron 4 mg tablet,disintegrating 4 mg PO Q6H PRN (Reason: Nausea And Vomiting) loratadine 10 mg Tablet 10 mg PO DAILY lorazepam [Ativan] 1 mg tablet 1 mg PO BEDTIME Discontinued levofloxacin 500 mg tablet 500 mg PO DAILY Discharge Orders: Discharge Order (Routine); Ordered 12/29/23 Ordered By: Kristy Oconnor Referrals: Bolivar Soliman MD [Referring] - 1 week (SENT REFERRAL FOR APPOINTMENT ON Sunday We have notified your physician's clinic of the need for a follow-up appointment to be scheduled. If you have not heard from them within the next 2 business days, please call them directly. ) Discharge Diet: As Directed and Regular Discharge Activity: Resume usual activity Patient Instructions: Amoxicillin/Clavulanate Potassium (By mouth) (Augmentin, Augmentin..., Urinary Tract Infection in Women (DC), Pancytopenia (DC), Opioid Safety Activity Restrictions/Additional Instructions: Soft bite sized easy to swallow food with thickened liquids. Chin tuck maneuver to prevent aspiration Eat slower and chew well before swallowing. Drink slowly. 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
== END 2023-12-29 11:37 | disposition home or self-care (01) | DRG 194 ==
LOC: ER 16:31 → MEDSURG 18:39
PROVIDERS: Admitting Provider Internal Medicine; Emergency Provider Family Medicine; PCP Family Medicine; Visit Provider Internal Medicine
DX: J18.9 Pneumonia, unspecified organism (principal); C56.1 Malignant neoplasm of right ovary; N39.0 Urinary tract infection, site not specified; D61.818 Other pancytopenia; D84.821 Immunodeficiency due to drugs; D70.1 Agranulocytosis secondary to cancer chemotherapy; T45.1X5A Adverse effect of antineoplastic and immunosuppressive drugs, initial encounter; R50.81 Fever presenting with conditions classified elsewhere; I10 Essential (primary) hypertension; D69.6 Thrombocytopenia, unspecified; D64.81 Anemia due to antineoplastic chemotherapy; Z95.828 Presence of other vascular implants and grafts
CPT/HCPCS: 36415; 36430; 36591; 71045; 74177; 80048; 80053; 80202; 81003; 82550; 83605; 83735; 84100; 84145; 85007; 85025; 86850; 86900; 86920; 87040; 87070; 87205; 87486; 87581; 87633; 92526; 92610; 94640; 96365; 96366; 96367; 97116; 97162; 99285; J0456; J0696; J2405; J2543; J3370; J7030; J7050; J8597; P9040; Q9967

== ENCOUNTER 2024-02-09 09:50 | Oncology outpatient (recurring) (ONCR) | payer OTHER, SELFPAY ==
[2024-02-07] MEDS: filgrastim-sndz 300 mcg/0.5 mL Syringe SUBCUT (13:47)
[2024-02-07 13:50] VITALS: BP 155/89; PULSE 89; RESP 16; TEMP 36.8; O2SAT 99
[2024-02-08] MEDS: filgrastim-sndz 300 mcg/0.5 mL Syringe SUBCUT (11:23)
[2024-02-08 11:25] VITALS: BP 148/74; PULSE 68; RESP 16; O2SAT 99
[2024-02-09] MEDS: filgrastim-sndz 300 mcg/0.5 mL Syringe SUBCUT (10:04)
[2024-02-09 10:16] VITALS: BP 137/95; PULSE 88; RESP 16; TEMP 36.6; O2SAT 98
== END 2024-02-29 23:59 | disposition home or self-care (01) ==
LOC: OPS 10:14 → ONCMED 02-18 15:19
PROVIDERS: PCP Family Medicine; Visit Provider Obstetrics & Gynecology Gynecologic Oncology
DX: C57.02 Malignant neoplasm of left fallopian tube (principal)
CPT/HCPCS: 96372; 96401; Q5101

== ENCOUNTER 2024-05-03 18:53 | Emergency (ER) | payer OTHER, SELFPAY ==
[2024-05-03 19:06] VITALS: BP 151/78; PULSE 110; RESP 17; TEMP 37.3; O2SAT 96; BMI 30.7
--- NOTE | 2024-05-03 19:36 | XRR_ITS ---
PROCEDURE INFORMATION: Exam: XR Chest Exam date and time: 05/03/2024 7:41 PM Age: 53 years old Clinical indication: Prior surgery; Surgery date: 1-6 months; Surgery type: Chest port; Patient HX: C/O fever. Currently on chemo for ovarian cancer. ; Additional info: Possible sepsis TECHNIQUE: Imaging protocol: Radiologic exam of the chest. Views: 1 view. COMPARISON: CR XR chest 1V portable [id number] 12/28/2023 2:49 PM FINDINGS: Tubes, catheters and devices: Left-sided chest port tip overlies the right atrium. Lungs: The lungs are adequately expanded. No focal consolidations or pulmonary edema. Pleural spaces: No pleural effusions or pneumothorax. Heart/Mediastinum: No cardiomegaly. Bones/joints: No acute fractures. XR/XR chest 1V portable [id number] IMPRESSION: No acute pulmonary disease.
--- NOTE | 2024-05-03 19:45 | ECG_ITS ---
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 Measurements Intervals [place] Rate: 101 P: 50 OR: 147 QRS: -22 QRSD: 88 T: 30 QT: 328 QTc: 425 Interpretive Statements SINUS TACHYCARDIA BORDERLINE LEFT AXIS DEVIATION [QRS AXIS < -20] ABNORMAL RHYTHM ECG Compared to ECG 04/08/2021 22:58:53 Sinus rhythm no longer present Electronically Signed On 05-04-2024 8:01:23 CDT by Fito Connolly M.D. [email or web address]
[2024-05-03] MEDS: sodium chloride 0.9% 2,286.12 ML 2286.12 ML IV (19:51)
[2024-05-03 20:01] LABS: Basophils % 0.8 %; Eosinophils % 0.8 %; Lymphocytes # 1.6 10^3/uL (0.8-4.8); Lymphocytes % 32.2 %; Mean Corpuscular HGB Conc 32.1 g/dL (30-55); Mean Corpuscular Hemoglobin 33.9 pg (27-33); Mean Corpuscular Volume 105.6 fl (85-98); Mean Platelet Volume 8.9 fL (7.4-10.4); Monocytes # 0.6 10^3/uL (0.2-0.9); Neutrophils # 2.54 10^3/uL (1.8-7.7); Neutrophils % 50.8 %; Nucleated Red Blood Cells % 0.4 %; Platelet Count 218 10^3/cmm (157-399); Red Blood Count 3.22 10^6/uL (3.85-5.65); Red Cell Distribution Width 18.6 % (12.1-15.1)
[2024-05-03 20:04] VITALS: BP 149/96; PULSE 96; RESP 18; O2SAT 98
[2024-05-03 20:11] LABS: Charge for UA Resulting for Rev
[2024-05-03 20:13] LABS: Bilirubin Urine Negative (Negative); Blood Urine Negative (Negative); Glucose Urine UA Negative (Normal); Ketones Urine Negative (Negative); Leukocyte Esterase Urine 1+ (Negative); Nitrate Urine Negative (Negative); Protein Urine Negative (Negative); Specific Gravity, Urine 1.016 (1.005-1.030); Urine Appearance Clear (CLEAR); Urine Color Yellow (Yellow)
[2024-05-03 20:18] LABS: Bacteria Urine None Seen /hpf; Hyaline Casts Urine 0-4 /lpf; RBC Urine 0-2 /hpf (0-2); Squamous Epithelial Cell Urine 0-5 /hpf (0-5)
[2024-05-03 20:20] LABS: Alanine Aminotransferase 24 U/L (0-33); Albumin Level 3.9 g/dL (3.5-5.2); Alkaline Phosphatase 117 U/L (35-105); Anion Gap 17.4 (5-19); Aspartate Amino Transferase 20 U/L (0-32); Blood Urea Nitrogen 6 mg/dL (6-20); Calcium 9.5 mg/dL (8.5-10.5); Carbon Dioxide 21 mmol/L (22-29); Chloride 103 mmol/L (98-107); Creatinine Clr Calc Pharmacy 89.8514; Globulin 2.6 g/dL (1.3-4.6); Glomerular Filtration Rate 87.9 mL/min (90-130); Glucose 107 mg/dL (65-115); Osmolality Calculated 282 mOsm/kg (285-295); Potassium 4.4 mmol/L (3.5-5.1); Sodium 137 mmol/L (136-145); Total Bilirubin 0.3 mg/dL (0.15-1.2); Total Protein 6.5 g/dL (6.6-8.7)
[2024-05-03] MEDS: cefTRIAXone 1,000 mg SDV 1000 MG IVP (20:37)
[2024-05-03 21:39] VITALS: BP 156/78; PULSE 104; RESP 18; O2SAT 97
[2024-05-03 22:01] VITALS: BP 158/78; PULSE 107; RESP 95; O2SAT 16
--- NOTE | 2024-05-03 22:49 | W.ED.FEVER ---
HPI - Fever General: Chief Complaint: Fever Stated Complaint: fever on chemo n/v nothing down 3 days+ Time Seen by Provider: 05/03/24 19:21 History of Present Illness: 53-year-old female with a history of ovarian cancer who is currently undergoing chemotherapy treatments presents with diarrhea x 2 days and low-grade fever x 1 day. Temperature of 100.1 yesterday and generalized bodyaches. Denies any new cough. Has had diarrhea several times. Denies any abdominal pain. Denies any vomiting. PFSH ED PFSH: Medical History HTN (hypertension) Elevated CA-125 Essential hypertension Surgical History Status post colonoscopy (05/05/21) S/P right oophorectomy History of total hysterectomy 2004-LAP History of delivery (1) Family History Other CAD (coronary artery disease) Diabetes Stroke Denies family history of Dementia Chronic kidney disease (CKD) Lung disease Cancer Hypertension Social History Smoking and tobacco/nicotine status: unknown if used tobacco/nicotine Alcohol intake: never Substance/Drug Use: never Physical Exam Const: COMMON NORMALS: no acute distress Eye: COMMON NORMALS: Equal, round and reactive pupils present and EOMs intact bilaterally PUPIL: Yes Equal, round and reactive pupils present Resp: COMMON NORMALS: normal respiratory effort and No retractions Cardio: COMMON NORMALS: regular rate and regular rhythm RATE: regular rate RHYTHM: regular rhythm GI: COMMON NORMALS: Normal to inspection, nondistended, normoactive bowel sounds present, Soft to palpation and non-tender PALPATION: Yes Soft to palpation Course Vital Signs: Vital signs: Vital Signs Temperature 99.2 F 05/03/24 19:06 Pulse Rate 98 05/03/24 22:53 Respiratory Rate 16 05/03/24 22:53 Blood Pressure 142/79 05/03/24 22:53 Pulse Oximetry 93 05/03/24 22:53 Oxygen Delivery Me thod Room Air 05/03/24 19:06 MDM - Fever Medical Decision Making Patient has UTIs noted on labs. He is not leukopenic. Not febrile. Has no cough or congestion and chest x-ray is normal. Patient does not appear to be septic at this time. Given IV fluids and IV Rocephin here for UTI. Patient unable to give stool sample after several hours. Suspect patient's symptoms secondary to UTI. Will discharge patient home with p.oAlex Davis. Discussed with patient that if she continues to have diarrhea and fever after treatment in the ER and will need to follow back up for stool studies. Lab Data 05/03/24 19:56 05/03/24 19:56 Radiology Impressions Chest X-Ray 05/03/24 19:36 IMPRESSION: No acute pulmonary disease. Laboratory Results WBC 5.00 10^3/uL (3.29-11.43) 05/03/24 19:56 RBC 3.22 10^6/uL (3.85-5.65) L 05/03/24 19:56 Hgb 10.90 g/dL (11.27-16.99) L 05/03/24 19:56 Hct 34.0 % (36-47) L 05/03/24 19:56 MCV 105.6 fl (85-98) H 05/03/24 19:56 MCH 33.9 pg (27-33) H 05/03/24 19:56 MCHC 32.1 g/dL (30-55) 05/03/24 19:56 RDW 18.6 % (12.1-15.1) H 05/03/24 19:56 Plt Count 218 10^3/cmm (157-399) 05/03/24 19:56 MPV 8.9 fL (7.4-10.4) 05/03/24 19:56 Neut % (Auto) 50.8 % 05/03/24 19:56 Lymph % (Auto) 32.2 % 05/03/24 19:56 [place] % (Auto) 12.0 % 05/03/24 19:56 Eos % (Auto) 0.8 % 05/03/24 19:56 Baso % (Auto) 0.8 % 05/03/24 19:56 Neut # (Auto) 2.54 10^3/uL (1.8-7.7) 05/03/24 19:56 Lymph # (Auto) 1.6 10^3/uL (0.8-4.8) 05/03/24 19:56 [place] # (Auto) 0.6 10^3/uL (0.2-0.9) 05/03/24 19:56 Eos # (Auto) 0.0 10^3/uL (0.0-0.8) 05/03/24 19:56 Baso # (Auto) 0.0 10^3/uL (0.0-0.1) 05/03/24 19:56 Nucleated RBC % (auto) 0.4 % 05/03/24 19:56 Nucleated RBCs # 0.0 /100WBC 05/03/24 19:56 Sodium 137 mmol/L (136-145) 05/03/24 19:56 Potassium 4.4 mmol/L (3.5-5.1) 05/03/24 19:56 Chloride 103 mmol/L (98-107) 05/03/24 19:56 Carbon Dioxide 21 mmol/L (22-29) L 05/03/24 19:56 Anion Gap 17.4 (5-19) 05/03/24 19:56 BUN 6 mg/dL (6-20) 05/03/24 19:56 Creatinine 0.7 mg/dL (0.5-0.9) 05/03/24 19:56 GFR Calculation 87.9 mL/min (90-130) L 05/03/24 19:56 Glucose 107 mg/dL (65-115) 05/03/24 19:56 Calculated Osmolality 282 mOsm/kg (285-295) L 05/03/24 19:56 Lactic Acid 2.0 mmol/L (0.5-2.2) 05/03/24 19:56 Calcium 9.5 mg/dL (8.5-10.5) 05/03/24 19:56 Total Bilirubin 0.3 mg/dL (0.15-1.2) 05/03/24 19:56 AST 20 U/L (0-32) 05/03/24 19:56 ALT 24 U/L (0-33) 05/03/24 19:56 Alkaline Phosphatase 117 U/L (35-105) H 05/03/24 19:56 Total Protein 6.5 g/dL (6.6-8.7) L 05/03/24 19:56 Albumin 3.9 g/dL (3.5-5.2) 05/03/24 19:56 Globulin 2.6 g/dL (1.3-4.6) 05/03/24 19:56 Urine Color Yellow (Yellow) 05/03/24 20:00 Urine Appearance Clear (CLEAR) 05/03/24 20:00 Urine pH 6.0 (5-7) 05/03/24 20:00 Ur Specific [place] 1.016 (1.005-1.030) 05/03/24 20:00 Urine Protein Negative (Negative) 05/03/24 20:00 Urine Glucose (UA) Negative (Normal) 05/03/24 20:00 Urine Ketones Negative (Negative) 05/03/24 20:00 Urine Blood Negative (Negative) 05/03/24 20:00 Urine Nitrate Negative (Negative) 05/03/24 20:00 Urine Bilirubin Negative (Negative) 05/03/24 20:00 Urine Urobilinogen 1.0 mg/dL (Negative) 05/03/24 20:00 Ur Leukocyte Esterase 1+ (Negative) A 05/03/24 20:00 Urine RBC 0-2 /hpf (0-2) 05/03/24 20:00 Urine WBC 11-20 /hpf (0-5) H 05/03/24 20:00 Ur Squamous Epith Cells 0-5 /hpf (0-5) 05/03/24 20:00 Amorphous Sediment Not Reportable 05/03/24 20:00 Urine Bacteria None seen /hpf (NONE) 05/03/24 20:00 Hyaline Casts 0-4 /lpf H 05/03/24 20:00 XR interpretation done by ED provider, pending radiology final review Discharge Plan Discharge Patient Disposition: Home Clinical Impression: UTI (urinary tract infection) Condition: Stable Prescriptions: New cephalexin 500 mg capsule 500 mg PO Q6H 7 Days Qty: 28 0RF Continued Eliquis 2.5 mg tablet 2.5 mg PO BID albuterol sulfate 90 mcg/actuation HFA aerosol inhaler 2 puff INHALATION Q4H PRN (Reason: Shortness Of Breath Or Wheezing) ondansetron 4 mg tablet,disintegrating 4 mg PO Q6H PRN (Reason: Nausea And Vomiting) loratadine 10 mg Tablet 10 mg PO DAILY lorazepam [Ativan] 1 mg tablet 1 mg PO BEDTIME Discharge Orders: Discharge ED (Routine); Ordered 05/03/24 Ordered By: Ayush Ingram Referrals: Jorden Casey MD [Primary Care Provider] - Discharge Diet: Usual diet Discharge Activity: Resume usual activity Patient Instructions: Opioid Safety, Pain Management Activity Restrictions/Additional Instructions: Your workup today revealed you have a urinary tract infection. Take all antibiotics as prescribed. If still having fever and diarrhea after treatment then followed back up to give stool sample and further evaluation and treatment. I would recommend taking a probiotic with the antibiotic. Coding Level of Care Code ED Wholesale Account Executive for Terri Bradford
--- NOTE | 2024-05-03 22:52 | PC.NURSE ---
pt attempted 3 times to give stool sample. pt unable to do so. notified.
[2024-05-03 22:53] VITALS: BP 142/79; PULSE 98; RESP 16; O2SAT 93
[2024-05-03 23:06] VITALS: BP 142/79; PULSE 98; RESP 16; TEMP 37.3; O2SAT 93
[2024-05-08 18:36] LABS: Bacillus cereus group Not Detected (NOT DETECT); Bacillus subtillis group Not Detected (NOT DETECT); Corynebacterium Not Detected (NOT DETECT); Cutibacterium acnes (P.acnes) Detected (NOT DETECT); Enterococcus Not Detected (NOT DETECT); Enterococcus faecalis Not Detected (NOT DETECT); Enterococcus faecium Not Detected (NOT DETECT); Lactobacillus species Not Detected (NOT DETECT); Listeria Not Detected (NOT DETECT); Listeria monocytogenes Not Detected (NOT DETECT); Micrococcus Not Detected (NOT DETECT); Pan Candida Not Detected (NOT DETECT); Pan Gram-Negative Not Detected (NOT DETECT); Staphylococcus epidermidis Not Detected (NOT DETECT); Staphylococcus lugdunensis Not Detected (NOT DETECT); Staphylococcus species Not Detected (NOT DETECT); Streptococcus agalactiae Not Detected (NOT DETECT); Streptococcus anginosus group Not Detected (NOT DETECT); Streptococcus pneumoniae Not Detected (NOT DETECT); Streptococcus pyogenes Not Detected (NOT DETECT); Streptococcus species Not Detected (NOT DETECT)
== END 2024-05-03 23:08 | disposition home or self-care (01) ==
PROVIDERS: Emergency Provider Emergency Medicine; PCP Family Medicine
DX: N39.0 Urinary tract infection, site not specified (principal); Z79.01 Long term (current) use of anticoagulants; I10 Essential (primary) hypertension
CPT/HCPCS: 36415; 71045; 80053; 81003; 81015; 83605; 85025; 87040; 87150; 87205; 93005; 96361; 96374; 96375; 99285; J0696; J1642; J7030

== ENCOUNTER → 2025-01-12 09:31 | Outpatient (BNVA) | payer BC, SELFPAY | PROVIDERS: PCP Family Medicine; Visit Provider Family Medicine | DX: D61.818 Other pancytopenia (principal); C79.60 Secondary malignant neoplasm of unspecified ovary; W57.XXXA Bitten or stung by nonvenomous insect and other nonvenomous arthropods, initial encounter | CPT/HCPCS: 86618; 86666; 86757 ==

== ENCOUNTER 2025-06-11 06:43 | Outpatient (CLI) | payer BC, SELFPAY ==
--- NOTE | 2025-06-11 07:05 | CT_ITS ---
WS: [id number] CT NECK TECHNIQUE: Contrast-enhanced CT of the neck with coronal and sagittal reformatted images. CLINICAL INFORMATION: OTALGIA PROTOCOL, SUSPICIOUS FOR HEAD AND NECK NEOPLASM COMPARISON: None. DLP: 244.[address] scans at [facility] use at least one of these dose optimization techniques: automated exposure control; mA and/or kV adjustment per patient size (includes targeted exams where dose is matched to clinical indication); or iterative reconstruction. FINDINGS: Normal parotid glands. Normal submandibular glands. Normal posterior nasopharynx. Normal parapharyngeal fat. Paranasal sinuses and mastoid air cells are well aerated. No evidence of supraglottic or glottic mass. Normal subglottic airway. Thyroid gland appears normal. No cervical lymphadenopathy. Mild spondylitic changes cervical spine. Straightening of the normal cervical lordosis. CT/CT neck w con* [id number] IMPRESSION: 1. Normal salivary glands. 2. No evidence of supraglottic or glottic mass. 3. No cervical lymphadenopathy. 4. Paranasal sinuses and mastoid air cells are well aerated.
[2025-06-11] MEDS: iohexol 350 mg/mL 500 mL Btl (per mL) IV (08:17)
== END 2025-06-11 06:44 | disposition home or self-care (01) ==
LOC: RAD 06:44
PROVIDERS: PCP Family Medicine; Visit Provider Nurse Practitioner Family
DX: H92.01 Otalgia, right ear (principal)
CPT/HCPCS: 70491

== ENCOUNTER 2025-09-27 09:52 | Emergency (ER) | payer BC, SELFPAY ==
--- NOTE | 2025-09-27 09:55 | XRR_ITS ---
PROCEDURE INFORMATION: Exam: XR Chest Exam date and time: 09/27/2025 10:27 AM Age: 55 years old Clinical indication: Pain; Chest pressure; Additional info: Chest heaviness; Chest pain radiating to lt arm; High BP TECHNIQUE: Imaging protocol: Radiologic exam of the chest. Views: 1 view. COMPARISON: CR XR chest 2V* [id number] 11/28/2024 9:54 AM FINDINGS: Tubes, catheters and devices: Left subclavian Port-A-Cath is stable in position with the tip at the cavoatrial junction. Lungs: Lungs are clear bilaterally. Pleural spaces: No pleural effusion. No pneumothorax. Heart/Mediastinum: The cardiac silhouette and mediastinal contours are unremarkable. Bones/joints: Unremarkable for age. XR/XR chest 1V portable [id number] IMPRESSION: 1. No acute cardiopulmonary process. 2. Incidental/nonacute findings are listed in the report.
--- OUTSIDE RECORDS SUMMARY | 2025-09-27 09:56 | XMS_ITS | Data Portability ---
Author Organization [facility] Romero [place] [facility], [facility] Address [address] [place] [address] Assessment Encounter Date Assessment Date Assessment LastModified by Organization Details LastModified Time 11/16/2023 11/16/2023 This nurse called and spoke to nurse Grossman in [facility]. Report and ETA provided. HP [email or web address] Not available 11/16/2023 19:26:28 Plan of Treatment Reminders Order Date Submit Date Provider Last Modified By Organization Details Last Modified Time Details Appointments None recorded. Lab rapid flu (A+B), PCR [address] ([facility]), [address] [place], [address], 4 20:10:59 SARS CoV 2 RNA, QL, nasopharynx [address] ([facility]), [address] [place], [address], 4 20:37:12 Referral None recorded. Procedures None recorded. Surgeries None recorded. Imaging XR, chest, 2 view 2024 025 [email or web address] [facility] ([facility]), [address] [place], [address], 5 11:41:30 Medication Orders fluconazole 150 mg tablet 2024 025 [facility] [place], [address], 11:18:42 amoxicillin 875 mg-gely m clavulanate 125 mg tablet 2024 025 [facility], [address] [place], [address], 11:18:43 Patient TargetsNo targets recorded. Patient InstructionsNo instructions recorded. Reason for Referral None Reported. Results Created Date Observation Date Name Description Value Unit Range Abnormal Flag Note LastModifiedBy Organization Detail LastModifiedTime 11/16/19 24 11/16/2023 SARS CoV 2 RNA, QL, nasop haryn x COVID negati ve Not Available [facility] ([facility]) [address] [place], [address], 11/16/2023 19:02:27 11/16/19 24 11/16/2023 rapid flu (A+B) , PCR Influenza B negati ve Not Available [facility] ([facility]) [address] [place], [address], 11/16/2023 18:33:58 11/16/19 24 11/16/2023 rapid flu (A+B) , PCR Influenza A negati ve Not Available [facility] ([facility]) [address] [place], [address], 11/16/2023 18:33:58 11/28/19 25 11/28/2024 XR, chest , 2 view No observ ation record ed. [email or web address] [facility] ([facility]) [address] [place], [address], 12/23/2024 11:32:45 12/02/1911/28/2024 XR, chest , 2 view No observ ation record ed. [email or web address] [facility] ([facility]) [address] [place], [address], 12/01/2024 12:51:14 Result Notes None recorded. Medical Equipment None Reported. Allergies No known drug allergies Medications Name Sig Start Date Stop Date Status Note LastModified by Organization Details LastModified Time fluconazole 150 mg tablet Take 1 tablet every day by oral route for 1 day, for yeast infectio n. 025 active Not Available Not Available Not Avai lable amoxicillin 875 mg-potassium clavulanate 125 mg tablet Take 1 tablet every 12 hours by oral route for 7 days. 025 active Not Available Not Available Not Avai lable lorazepam active Not Available Not Lourdes ilable Not Available duloxetine active Not Available Not Av ailable Not Available Eliquis active Not Available Not Avail able Not Available Vitals Date Recorded Body height Body mass index (BMI) Body weight Oxygen saturation Heart rate Respiratory rate Body temperature Provider Name and Address Organization Details Last Updated DateTime 4 157.48 cm 31.1 kg/m2 22884.7 g 94 % 129 /min 16 /min 99.5 [degF] Keeley Rodríguez [facility] 4 18:32:46 Date Recorded Body height Body mass index (BMI) Body weight Oxygen saturation Heart rate Body temperature Systolic And Diastolic Provider Name and Address Organization Details Last Updated DateTime 5 157.48 cm 32.7 kg/m2 55946.0 3 g 98 % 89 /min 98.6 [degF] 142/80 mm[Hg] Lashae Bhatia [facility] 5 10:43:27 Social History None recorded. Functional Status None recorded. Mental Status None recorded. Family History Nothing Reported. Medical History No medical history recorded. Gynecological HistoryNo gynecological history recorded. Obstetrics History GPAL:G 0 P 0 0 0 0 Past Encounters Encounter ID Performer Location Encounter Start Date Encounter Closed Date Diagnosis/Indication Diagnosis SNOMED-CT Code Diagnosis ICD10 Code Diagnosis IMO Codes Diagnosis Note [id number] DIAZ TRAN PA-C [facility] ([facility]) [address] [place] [address] 11/16/2023 18:19:51 11/16/2023 19:28:38 Fever 798545322 R50.9 NEg covid and flu Metastatic malignant neoplasm to ovary 22014190 C79.60 Pt is mid chemo tx, immunocomp romised and running a fever. No obvious source of infection at this time. I am not able to do lab, urine or xray due to time of night her at walkingI recommende d she go to ER for sepsis workup due to her immunocomp romised state. [id number] DESHAWN BLACKMAN [facility] ([facility]) [address] [place] [address] 11/28/2024 10:32:34 11/28/2024 11:19:37 Cough 40015475 R05.9 Will send X ray to radiology. Acute sinusitis 71610682 J01.90 Increase po fluids. Rest. May use saline nasal spray as well for symptoms. RTC with any new or worsening symptoms. Candidiasis of skin 4988 3006 B37.2 Patient has history of secondary yeast infection with antibiotic therapy. Will send in fluconazol e to use if this develops. Health Concerns Section Related Observation LastModified by Organization Detai ls LastModified Time None Recorded Concern Status LastModified by Organization Details LastModified Time None Recorded Advance Directives Directive None Recorded Payers Insurance Date Sequence Insurance Name Policy Number Policy Steiner Covered Member ID Steiner Member ID Guarantor Name 11/28/2024 1 [facility] Radha Ramana [id number] Radha Boles 12/02/2024 1 [facility] [id number] Dre Ledezmaimes [id number] Radha Boles Notes Date Note Type Note Provider Name and Address Organization Details Recorded Time 4 text/html FeverReported by PatientHPIFor severity, patient reportsworseningbut reportshighest fever: (101.1f). For context, patient reportsnew medicationsandimmunosupp ression. For associated symptoms, patient reportsheadache,cold symptoms,generalized pain,chills,nasal congestion/discharge,sor e throat,fatigue,myalgia, andloss of appetitebut reportsno diarrheaandno vomiting. For duration, patient reportsconstant,symptoms started 4 days ago, andfever for less than 3 weeks. For onset/timing, patient reportsfirst recorded: (sunday morning)andrandom onset. For alleviating factors, patient reportsnsaids(motrin for fever).ROS as noted in the HPI DIAZ TRAN PA-C [address] [place], [address], [facility], Kimi 11/16/2023 20:37:12 5 text/html ROS as noted in the HPI walk inx 1 day ago nasal congestion which moved to chest congestion, pain to right lower lobe when taking a breath. Hx pneumonia at same x 1 year ago- CA pt on immune IV therapy. DESHAWN BLACKMAN [address] [place], [address], [facility], Kimi 11/28/2024 11:18:58 OBGyn Episode No OBEpisode recorded.
[2025-09-27 09:57] VITALS: BP 176/97; PULSE 101; TEMP 36.6; O2SAT 100; BMI 30.3
--- NOTE | 2025-09-27 10:00 | ECG_ITS ---
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
--- NOTE | 2025-09-27 10:24 | W.ED.CHESTPA ---
HPI - Chest Pain General: Chief Complaint: Chest Pain Stated Complaint: cp, high bp Time Seen by Provider: 09/27/25 10:14 Source: patient Mode of arrival: ambulatory Limitations: no limitations History of Present Illness: 55-year-old female states that this morning started having some left-sided pressure type pain in her chest. States been having some dyspnea as well states she checked her blood pressure and it was in the 200s. Patient does appear anxious here. Has a history of ovarian cancer is not on any treatment currently but is on immunotherapy. She denies any cough or fever denies any worse or improving factors Related Data Home Medications ?Medication ?Instructions ?Recorded ?Confirmed lorazepam 1 mg tablet (Ativan) 1 mg PO BEDTIME 11/16/23 09/27/25 apixaban 2.5 mg tablet (Eliquis) 2.5 mg PO BID 05/03/24 09/27/25 duloxetine 30 mg capsule,delayed 30 mg PO QPM 09/27/25 09/27/25 release pantoprazole 40 mg tablet,delayed 40 mg PO QAM 09/27/25 09/27/25 release paroxetine HCl 10 mg tablet 10 mg PO QAM 09/27/25 09/27/25 Previous Rx's ?Medication ?Instructions ?Recorded amlodipine 10 mg tablet (Norvasc) 10 mg PO DAILY #30 tabs 09/27/25 Allergies Allergy/AdvReac Type Severity Reaction Status Date / Time carboplatin Allergy Unknown Verified 09/27/25 10:07 lisinopril AdvReac cough Verified 09/27/25 10:07 Review of Systems Card: Reports: chest pain [facility] ED PFSH: Medical History HTN (hypertension) Elevated CA-125 Essential hypertension Surgical History Status post colonoscopy (05/05/21) S/P right oophorectomy History of total hysterectomy 2005-LAP History of delivery (1) Family History Other CAD (coronary artery disease) Diabetes Stroke Denies family history of Dementia Chronic kidney disease (CKD) Lung disease Cancer Hypertension Social History Smoking and tobacco/nicotine status: never used tobacco/nicotine Alcohol intake: never Substance/Drug Use: never Physical Exam Const: COMMON NORMALS: patient oriented x3 HENMT: COMMON NORMALS: normocephalic and atraumatic HEAD & SCALP: normocephalic and atraumatic Neck/C-Spine: COMMON NORMALS: full ROM and supple Chest: COMMONS NORMALS: normal inspection of the chest and normal palpation of entire chest wall Resp: COMMON NORMALS: normal respiratory effort, No retractions, No use of accessory muscles and clear to auscultation bilaterally AUSCULTATION: clear to auscultation bilaterally Cardio: COMMON NORMALS: regular rate, regular rhythm and No murmurs present (Cardio) RATE: regular rate RHYTHM: regular rhythm Extremity: COMMON NORMALS: normal to inspection and full ROM Neuro: COMMON NORMALS: patient oriented x3, moves all extremities and no focal motor deficits Psych: COMMON NORMALS: mental status grossly normal, Normal thought process present and cooperative THOUGHT PROCESS: Normal thought process present Skin: COMMON NORMALS: no rashes or lesions noted and no wounds GENERAL SKIN EXAM: no rashes or lesions noted Course Vital Signs: Vital signs: Vital Signs Temperature 97.9 F 09/27/25 09:57 Pulse Rate 87 09/27/25 12:53 Respiratory Rate 14 09/27/25 12:53 Blood Pressure 115/87 09/27/25 12:53 Pulse Oximetry 96 09/27/25 12:53 Oxygen Delivery Me thod Room Air 09/27/25 12:06 MDM - Chest Pain Medical Decision Making 55-year-old female presents here with chest pain has been going on today. Differential includes ACS, pneumonia, pneumothorax, pulm emboli. Patient's CT chest showed no acute abnormality no signs of PE chest x-ray as interpreted by me showed no acute findings. Lab work here showed no significant abnormality troponins were negative patient has no signs of ACS pain is atypical in nature her pain has improved here she has been hypertensive blood pressure has improved we will start her on Norvasc she is to monitor blood pressure follow-up with her PCP in 1 to 3 days return if worsening she understands agrees to plan. EKG interpreted by me 1000 sinus tachycardia heart rate [address] elevation QRS 97 QTc 397 Second EKG interpreted by me at 1109 shows normal sinus rhythm heart rate [address] elevation QRS 93 QTc 399 Medical Records I reviewed the patient's medical records. Lab Data I reviewed the patient's lab results. 09/27/25 10:23 09/27/25 10:23 Radiology Impressions Chest X-Ray 09/27/25 09:55 IMPRESSION: 1. No acute cardiopulmonary process. 2. Incidental/nonacute findings are listed in the report. Chest CTA 09/27/25 10:48 IMPRESSION: 1. No evidence for pulmonary embolism. 2. Mild fatty infiltration of the visualized liver. 3. A nodule with central calcification anterior to the heart is stable, this may represent a partially calcified granuloma. Laboratory Results WBC 7.60 10^3/uL (3.29-11.43) 09/27/25 10:23 RBC 5.22 10^6/uL (3.85-5.65) 09/27/25 10:23 Hgb 15.80 g/dL (11.27-16.99) 09/27/25 10:23 Hct 46.7 % (36-47) 09/27/25 10:23 MCV 89.5 fl (85-98) 09/27/25 10:23 MCH 30.3 pg (27-33) 09/27/25 10:23 MCHC 33.8 g/dL (30-55) 09/27/25 10:23 RDW 13.9 % (12.1-15.1) 09/27/25 10:23 Plt Count 182 10^3/cmm (157-399) 09/27/25 10:23 MPV 8.3 fL (7.4-10.4) 09/27/25 10:23 Neut % (Auto) 50.4 % 09/27/25 10:23 Lymph % (Auto) 39.5 % 09/27/25 10:23 Collin % (Auto) 7.6 % 09/27/25 10:23 Eos % (Auto) 0.9 % 09/27/25 10:23 Baso % (Auto) 0.5 % 09/27/25 10:23 Neut # (Auto) 3.83 10^3/uL (1.8-7.7) 09/27/25 10:23 Lymph # (Auto) 3.0 10^3/uL (0.8-4.8) 09/27/25 10:23 Collin # (Auto) 0.6 10^3/uL (0.2-0.9) 09/27/25 10:23 Eos # (Auto) 0.1 10^3/uL (0.0-0.8) 09/27/25 10:23 Baso # (Auto) 0.0 10^3/uL (0.0-0.1) 09/27/25 10:23 Nucleated RBC % (auto) 0 % 09/27/25 10:23 Nucleated RBCs # 0.0 /100WBC 09/27/25 10:23 PT 12.40 SECONDS (12.1-14.9) 09/27/25 10:23 INR 0.86 (0.8-1.2) 09/27/25 10:23 D-Dimer 0.72 ug/mLFEU (0-0.59) H 09/27/25 10:23 Sodium 139 mmol/L (136-145) 09/27/25 10:23 Potassium 4.1 mmol/L (3.5-5.1) 09/27/25 10:23 Chloride 102 mmol/L (98-107) 09/27/25 10:23 Carbon Dioxide 22 mmol/L (22-29) 09/27/25 10:23 Anion Gap 19.1 (5-19) H 09/27/25 10:23 BUN 15 mg/dL (6-20) 09/27/25 10:23 Creatinine 0.9 mg/dL (0.5-0.9) 09/27/25 10:23 GFR Calculation 65.2 mL/min (90-130) L 09/27/25 10:23 Glucose 126 mg/dL (65-115) H 09/27/25 10:23 Calculated Osmolality 290 mOsm/kg (285-295) 09/27/25 10:23 Calcium 10.1 mg/dL (8.5-10.5) 09/27/25 10:23 Total Bilirubin 0.3 mg/dL (0.15-1.2) 09/27/25 10:23 AST 28 U/L (0-32) 09/27/25 10:23 ALT 40 U/L (0-33) H 09/27/25 10:23 Alkaline Phosphatase 139 U/L (35-105) H 09/27/25 10:23 Troponin T Baseline 8 ng/L (0-10) 09/27/25 10:23 Troponin T 60 Minute 7.28 ng/L (0-10) 09/27/25 11:39 Delta Troponin T -0.72 ABS# (0-10) L 09/27/25 11:39 Total Protein 6.6 g/dL (6.6-8.7) 09/27/25 10:23 Albumin 4.4 g/dL (3.5-5.2) 09/27/25 10:23 Globulin 2.2 g/dL (1.3-4.6) 09/27/25 10:23 All radiology interpretation(s) finalized by discharge Discharge Plan Discharge Patient Disposition: Home Clinical Impression: Chest pain, Hypertension Condition: Stable Prescriptions: New amlodipine [Norvasc] 10 mg tablet 10 mg PO DAILY Qty: 30 0RF No Action Eliquis 2.5 mg tablet 2.5 mg PO BID paroxetine HCl 10 mg tablet 10 mg PO QAM pantoprazole 40 mg tablet,delayed release (DR/EC) 40 mg PO QAM duloxetine 30 mg capsule,delayed release(DR/EC) 30 mg PO QPM lorazepam [Ativan] 1 mg tablet 1 mg PO BEDTIME Discharge Orders: Discharge ED (Routine); Ordered 09/27/25 Ordered By: Casie Mccarty Referrals: Jorden Casey MD [Primary Care Provider, Family Practice] - 1-3 days Discharge Diet: Advance as tolerated Discharge Activity: Resume usual activity Patient Instructions: Chest Pain (ED), Hypertension (ED) Print Language: Greenlandic Coding Level of Care Code ED Risk Lead for Chg Fwd Heart Score HEART Score Components History: Slightly Suspicous EKG: Normal Age: 45-64 yrs Risk Factors: No Risk Factors Known Troponin: Baseline Trop <16 ng/L HEART Score RESULT HEART Score: 1
[2025-09-27 10:30] LABS: Hematocrit 46.7 % (36-47); Hemoglobin 15.80 g/dL (11.27-16.99); Mean Corpuscular HGB Conc 33.8 g/dL (30-55); Mean Corpuscular Hemoglobin 30.3 pg (27-33); Mean Corpuscular Volume 89.5 fl (85-98); Nucleated Red Blood Cells % 0 %; Platelet Count 182 10^3/cmm (157-399); Red Blood Count 5.22 10^6/uL (3.85-5.65); White Blood Count 7.60 10^3/uL (3.29-11.43)
[2025-09-27 10:40] LABS: INR 0.86 (0.8-1.2); Prothrombin Time 12.40 SECONDS (12.1-14.9)
[2025-09-27 10:46] LABS: Troponin(5th) Baseline 8 ng/L (0-10)
--- NOTE | 2025-09-27 10:48 | CTR_ITS ---
PROCEDURE INFORMATION: Exam: CTA Chest With Contrast Exam date and time: 09/27/2025 11:22 AM Age: 55 years old Clinical indication: Pain; Shortness of breath; On breathing; Additional info: Cp/sob TECHNIQUE: Imaging protocol: Computed tomographic angiography of the chest with contrast. Exam focused on the arteries. Sagittal and coronal reformatted images were also reviewed. 3D rendering (Not supervised by radiologist): MIP and/or 3D reconstructed images were created by the technologist. Radiation optimization: All CT scans at this facility use at least one of these dose optimization techniques: automated exposure control; mA and/or kV adjustment per patient size (includes targeted exams where dose is matched to clinical indication); or iterative reconstruction. Contrast material: OMNIPAQUE 350; Contrast volume: 61 ml; Contrast route: INTRAVENOUS (IV); COMPARISON: CT angio chest w abd pel w con 04/08/2021 10:36 PM RADIATION DOSE METRICS: Total DLP (mGy-cm): 378.02 FINDINGS: Tubes, catheters and devices: Left subclavian Port-A-Cath with the tip at the cavoatrial junction. Pulmonary arteries: No filling defects in the pulmonary arteries to suggest pulmonary embolism. Aorta: No evidence for aortic aneurysm. Evaluation for aortic dissection is limited due to the phase of contrast-enhancement. Trachea: Tracheobronchial structures are patent. Lungs: Lungs are clear bilaterally. No pulmonary parenchymal nodules or masses. Pleural spaces: No pneumothorax. No pleural effusion. Heart: Mild enlargement of the heart. Coronary arteries: No coronary artery calcification(s). Esophagus: The esophagus is unremarkable. Mediastinal space: No mediastinal hematoma. No pneumomediastinum. A nodule with central calcification anterior to the heart is stable measuring 1.5 x 2.1 cm, this may represent a partially calcified granuloma (series 7, image 300). Lymph nodes: No lymphadenopathy. Liver: Diffuse, mildly decreased attenuation in the visualized liver. Findings are consistent with mild fatty infiltration. Bones/joints: Multilevel degenerative changes of varying severity in the visualized spine. Calcification of the anterior longitudinal ligament at multiple levels in the thoracic spine, suggesting diffuse idiopathic skeletal hyperostosis (DISH). Soft tissues: The extrathoracic soft tissues are unremarkable. CT/CT angio chest PE protcl [id number] IMPRESSION: 1. No evidence for pulmonary embolism. 2. Mild fatty infiltration of the visualized liver. 3. A nodule with central calcification anterior to the heart is stable, this may represent a partially calcified granuloma.
[2025-09-27 10:56] LABS: Alanine Aminotransferase 40 U/L (0-33); Albumin Level 4.4 g/dL (3.5-5.2); Alkaline Phosphatase 139 U/L (35-105); Anion Gap 19.1 (5-19); Aspartate Amino Transferase 28 U/L (0-32); Blood Urea Nitrogen 15 mg/dL (6-20); Calcium 10.1 mg/dL (8.5-10.5); Carbon Dioxide 22 mmol/L (22-29); Chloride 102 mmol/L (98-107); Globulin 2.2 g/dL (1.3-4.6); Glucose 126 mg/dL (65-115); Osmolality Calculated 290 mOsm/kg (285-295); Potassium 4.1 mmol/L (3.5-5.1); Sodium 139 mmol/L (136-145); Total Protein 6.6 g/dL (6.6-8.7)
[2025-09-27 11:08] VITALS: RESP 20
[2025-09-27] MEDS: labetalol 5 mg/mL SDV 20mL 10 MG IVP (11:08)
[2025-09-27] MEDS: morphine 4 mg/mL SDV 1 mL IVP (11:08)
[2025-09-27] MEDS: ondansetron 2 mg/ML SDV 2 mL 4 MG IVP (11:09)
--- NOTE | 2025-09-27 11:09 | ECG_ITS ---
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 Inspector: : 1970 Requested By: Casie Mccarty Order Number: [id number] Reading MD: CELSO DUFF Measurements Intervals [place] Rate: 79 P: 54 MS: 157 QRS: -24 QRSD: 93 T: 33 QT: 365 QTc: 419 Interpretive Statements SINUS RHYTHM BORDERLINE LEFT AXIS DEVIATION [QRS AXIS < -20] MINIMAL VOLTAGE CRITERIA FOR LVH, CONSIDER NORMAL VARIANT [MEETS CRITERIA IN ONE OF: R(aVL), S(V1), R(V5), R(V5/V6)+S(V1)] Compared to ECG 09/27/2025 10:00:57 Sinus tachycardia no longer present Myocardial infarct finding no longer present Electronically Signed On 09-27-2025 23:19:31 BEHAVIORAL MODIFICATION ASSISTANT by CELSO DUFF [email or web address]
[2025-09-27] MEDS: iohexol 350 mg/mL 500 mL Btl (per mL) IV (11:28)
[2025-09-27 12:06] VITALS: BP 167/102; PULSE 74; RESP 15; O2SAT 92
[2025-09-27] MEDS: hyDRALAzine 20 mg/mL INJ 1 mL 10 MG IVP (12:35)
[2025-09-27 12:53] VITALS: BP 115/87; PULSE 87; RESP 14; O2SAT 96
== END 2025-09-27 12:54 | disposition home or self-care (01) ==
PROVIDERS: Emergency Provider Emergency Medicine; PCP Family Medicine
DX: R07.9 Chest pain, unspecified (principal); I10 Essential (primary) hypertension; Z79.01 Long term (current) use of anticoagulants
CPT/HCPCS: 36415; 71045; 71275; 80053; 84484; 85025; 85378; 85610; 93005; 96374; 96375; 99285; J0360; J2270; J2405; J3490; J9999